=== PATIENT | female | born 1970 | race Caucasian/White ===

== ENCOUNTER 2019-04-06 13:17 | Outpatient (CLI) | payer BC, SELFPAY ==
--- NOTE | ~2019-04-06 | MM_ITS ---
EXAMINATION: MM diagnostic janae BI w elia HISTORY: Diffuse, intermittent bilateral mastodynia TECHNIQUE: Craniocaudal, mediolateral, and mediolateral oblique 3-D tomosynthesis images of the breantony ts were performed and synthetic 2-D images were generated. CAD analysis was submitted and interpreted . COMPARISON: 05/20/2018,05/26/2017, 04/24/2016, 04/18/2015 BREAST PARENCHYMAL COMPOSITION: The breasts are heterogeneously dense, which may obscure small masses . FINDINGS: There is no evidence of suspicious mass, calcification, or architectural distortion in eit her breast to suggest malignancy. There has been no suspicious interval change. No mammographic cor relate is identified for the patient's breast pain. IMPRESSION: 1. No specific mammographic correlate is identified for the patient's bilateral breast pain Further e valuation at this time should be based on clinical assessment. Continued follow-up physical examinati on is recommended. 2. Recommend routine screening mammography in one year. BI-RADS Category 1: Negative Reviewed, dictated and finalized at location A. SSEMBLY ASSEMBLER IMPRESSION: 1. No specific mammographic correlate is identified for the patient's bilateral breast pain Further evaluation at this time should be based on clinical assess ment. Continued follow-up physical examination is recommended. 2. Recommend routine screening mammography in one year. BI-RADS Category 1: Negative
== END 2019-04-06 13:18 | disposition home or self-care (01) ==
PROVIDERS: PCP Internal Medicine
DX: N64.4 Mastodynia (principal)
CPT/HCPCS: 77062; 77066; G0279

== ENCOUNTER 2022-04-13 09:02 | Outpatient (CLI) | payer BC, SELFPAY ==
--- NOTE | ~2022-04-13 | MM_ITS ---
EXAMINATION: MM screening janae BI w elia HISTORY: Screening mammogram TECHNIQUE: Craniocaudal and mediolateral oblique 3-D tomosynthesis images were obtained and synthetic 2-D images were generated. CAD analysis was submitted and interpreted. COMPARISON: April 06, 2019 diagnostic bilateral mammogram 05/20/2018 bilateral diagnostic mammography and complete bilateral breast ultrasound examination 09/15/2017 limited left breast ultrasound 09/06/2017 bilateral breast MRI examination BREAST PARENCHYMAL COMPOSITION: The breasts are heterogeneously dense, which may obscure small masses . FINDINGS: There is no evidence of suspicious mass, calcification, or architectural distortion to sugg est malignancy in either breast. There has been no suspicious interval change. IMPRESSION: 1. No mammographic evidence of malignancy. 2. Recommend routine screening mammography in one year. BI-RADS Category 1: Negative Reviewed, dictated and finalized at location A. EGE SPECIALIST
== END 2022-04-13 09:03 | disposition home or self-care (01) ==
PROVIDERS: PCP Nurse Practitioner; Visit Provider Nurse Practitioner
DX: Z12.31 Encounter for screening mammogram for malignant neoplasm of breast (principal)
CPT/HCPCS: 77063; 77067

== ENCOUNTER 2024-08-20 06:42 | Inpatient (IN) | payer BC, SELFPAY ==
[2024-08-20] VITALS (9 sets, daily range): BP systolic 111–150; BP diastolic 60–83; PULSE 83–113; RESP 14–16; TEMP 36.6–37.2; O2SAT 93–99; BMI 21.4
--- OUTSIDE RECORDS SUMMARY | 2024-08-20 06:45 | XMS_ITS | Encounter Summary ---
Author Organization [facility] Address [address] [place] [id number] Care Team Providers Care Personal Care Attendant Name Role Phone Justa Rene NP Primary Care Provider [phone] Encounter Details Date Type Department Care Team (Late st Contact Info) Description 01/06/2022 Bahoui Message Enc [facility] Family Medicine - [place] [address] [facility] [address] [place] [address] [phone] Justa Rene, KEMAL [address] [place] [address] Short Term Medicine Social History Tobacco Use Types Packs/Day Years Used Date Smoking Tobacco: Former Cigarettes 0.3 3 0 02/15/1994 - 02/15/1997 Alcohol Use Standard Drinks/Week Comments Not Currently 0 (1 standard drink = 0.6 oz pur e alcohol) A drink every other month PHQ-2 Answer Date Recorded PHQ-2 Score - If the patient scores above 3, please move on to questions 3-9 4 01/05/2022 Comments Unknown Sex and Gender Information Value Date Recorded Sex Assigned at Female 04/26/2024 8:09 AM CDT Legal Sex Female 5:13 PM CDT Gender Identity Female 05/30/2024 2:26 PM CDT Sexual Orientation Straight 05/30/2024 2: 26 PM CDT COVID-19 Exposure Response Date Recorded In the last 10 days, have yo u been in contact with someone who was confirmed or suspected to have Coronavirus/COVID-19? 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 [address] [place], [place] [id number] Lucy Paez FNP [address] [facility] [address] [place], [place] [id number] documented as of this encounter Visit Diagnoses Not on filedocumented in this encounter Additional Health Concerns Assessment Noted Time PHQ-9 Depression Total Score: 13 022 10:18 AM PIPE AND TEST SUPERVISOR documented as of this encounter Care Teams Personal Care Attendant Relationship Specialty Start Date End Date Justa Rene NP [address] [place] [address] PCP - General NURSE PRACTITIONER 12/25/21 documented as of this encounter
--- OUTSIDE RECORDS SUMMARY | 2024-08-20 06:45 | XMS_ITS | Clinical Summary ---
Author Organization [facility] Address [address] [place] [id number] Phone Care Team Providers Care Envelope Press Operator Name Role Phone Gilberto Milligan MD Primary Care Provider [phone] Allergies Active Allergy Reactions Criticality Noted Date Comments Penicillins Unknown 08/17/2018 Medications SYNTHROID 88 mcg tablet TK 1 T PO QD 0 9 Active trazodone HCl (TRAZODONE ORAL) Take by mouth. Active L. acidophilus/L. rhamnosus (PROBIOTIC ORAL) Take by mouth. Active linaCLOtide (LINZESS) 145 mcg capsuleIndication s:Constipation, unspecified constipation type Take 1 Capsule (145 mcg) by mouth daily before breakfast. 30 Capsule 2 9 Active Active Problems No known active problems Family History Medical History Relation Name Comments Breast Cancer Paternal Grandmother Relation Name Status Comments Paternal Grandmother Social History Tobacco Use Types Packs/Day Years Used Date Smoking Tobacco: Never Smokeless Tobacco: Never Alcohol Use Standard Drinks/Week Comments Yes 0 (1 standard drink = 0.6 oz pur e alcohol) Comments No Sex and Gender Information Value Date Recorded Sex Assigned at Not on file Legal Sex Female 1:51 PM CDT Gender Identity Not on file Sexual Orientation Not on file Last Filed Vital Signs Vital Sign Reading Time Taken Comments Blood Pressure 138/70 08/17/2018 2:21 PM CDT Pulse 82 08/17/2018 2:21 PM CDT Temperature - - Respiratory Rate - - Oxygen Saturation - - Inhaled Oxygen Concentration - - Weight 55.3 kg (122 lb) 08/17/2018 2:21 PM CDT Height 162.6 cm (5' 4) 08/17/2018 2:21 PM CDT Body Mass Index 20.94 08/17/2018 2:21 PM CDT Plan of Treatment Health Maintenance Due Date Last Done Comments DTAP/TDAP/TD VACCINES (1 - Tdap) 1989 HEPATITIS B VACCINES (1 of 3 - 19+ 3-dose series) 06/1989 HPV/Cotest (21-29) 12/21/1991 CERVICAL CANCER SCREENING 2000 HPV/Cotest (30-65) 2000 PAP SMEAR 2000 BREAST CANCER SCREENING 2010 COLORECTAL SCREENING 12/21/2015 Colorectal Cancer Screening 12/21/2015 FIT-DNA Q 3 years 12/21/2015 FIT/FOBT Q 1 year 12/21/2015 Flex Sig/CT Colonography Q 5 years 12/21/2015 ZOSTER VACCINE (1 of 2) 2020 INFLUENZA VACCINE (#1) 2024 Insurance [employer] BLUE ACCESS/TRUE BLUE PPO Care Teams Envelope Press Operator Relationship Specialty Start Date End Date Gilberto Milligan MD [address] [place] [address] [place] [id number] PCP - General Internal Medicine 07/25/18
--- OUTSIDE RECORDS SUMMARY | 2024-08-20 06:45 | XMS_ITS | Clinical Summary ---
Author Organization [facility] 2 Address [address] [place] [address] Care Team Providers Care Egg Tester Name Role Phone Justa Rene MD Primary Care Provider [phone] Allergies Active Allergy Reactions Criticality Noted Date Comments Chlorhexidine Gluconate Hives Medium 07/27/2024 Medications cyanocobalamin (Vitamin B-12) 1,000 mcg/mL injection INJ 1 ML MONTHLY UTD 1 11/21/19 18 Active SYNTHROID 88 mcg tablet TK 1 T PO QD 1 10/21/19 18 Active valACYclovir (VALTREX) 1 gram tablet TK 1 T PO BID PRN FOR COLD SORES 0 09/25/19 18 Active triamcinolone (KENALOG) 0.1 % cream Apply topically 2 (two) times a day 28.4 g 3 12/06/[address] (PROTONIX) 40 mg EC tablet Take 1 tablet (40 mg total) by mouth daily Active cetirizine (ZyrTEC) 5 mg chewable tablet Take 1 tablet (5 mg total) by mouth daily Active spironolactone (ALDACTONE) 100 mg tablet Take 1 tablet (100 mg total) by mouth daily Active diclofenac sodium (VOLTAREN) 1 % gel APPLY 4 GRAMS TO LEFT KNEE QID 1 10/13/19 18 025 Discontinued(Th erapy completed) AFLURIA QUAD 4180-1406, PF, 60 mcg/0.5 mL syringe ADM 0.5ML IM UTD 0 11/21/19 18 025 Discontinued( erapy completed) meloxicam (MOBIC) 15 mg tablet TK 1 T PO QD WF 0 10/25/19 18 025 Discontinued( erapy completed) spironolactone (ALDACTONE) 25 mg tablet TK 3 TS PO QAM AND 2 TS PO QHS 0 09/21/19 18 025 Discontinued sulfamethoxazo le-trimethopri m (BACTRIM,SEPTR A) 800-160 mg per tablet TK 1 T PO BID IF NEEDED FOR UTI 0 09/25/19 18 025 Discontinued( erapy completed) BD TUBERCULIN SYRINGE 1 mL 25 gauge x 5/8 syringe USE FOR B12 ONCE Q MONTH 0 09/22/19 18 025 Discontinued( erapy completed) traZODone (DESYREL) 50 mg tablet TK 1 TO 2 TS PO HS 1 09/25/19 18 025 Discontinued( erapy completed) Contrave 8-90 mg tablet extended release TK 2 TS PO BID 11/06/19 20 025 Discontinued( erapy completed) linaCLOtide (LINZESS) 145 mcg capsule Take 145 mcg by mouth daily before breakfast 08/18/19 19 025 Discontinued( erapy completed) fluconazole (DIFLUCAN) 150 mg tablet TK 1 T PO QOD 10/26/19 20 025 Discontinued( erapy completed) ciprofloxacin (CIPRO) 500 mg tablet TK 1 T PO BID FOR 10 DAYS 10/26/19 20 025 Discontinued( erapy completed) cefdinir (OMNICEF) 300 mg capsule TK 1 C PO TWICE DAILY. STOP BACTRIM / CIPRO 10/31/19 20 025 Discontinued( erapy completed) UNABLE TO FIND Take by mouth 025 Discontinued( erapy completed) UNABLE TO FIND Take by mouth 025 Discontinued( erapy completed) phentermine (ADIPEX-P) 37.5 mg tablet Take 37.5 mg by mouth daily 09/12/19 20 025 Discontinued( erapy completed) BD Safety-Norma Tuberculin 1 mL 25 gauge x 5/8 syringe U ONCE Q MONTH 10/05/19 20 025 Discontinued(Th erapy completed) levoFLOXacin (LEVAQUIN) 500 mg tabletIndicati ons:Skin/Soft Tissue Infection Take 1 tablet (500 mg total) by mouth daily for 7 days 7 tablet 07/31/19 25 025 doxycycline (VIBRAMYCIN) 100 mg capsuleIndicat ions:Skin/Soft Tissue Infection Take 1 tablet/capsul e (100 mg total) by mouth 2 (two) times a day for 7 days 14 tablet/caps ule 07/31/19 25 025 Active Problems Problem Noted Date Diagnosed Date Cellulitis of axilla, unspecified laterality 01/2025 Encounters Date Type Department Care Team Description 07/27/2024 11:33 AM CDT - 07/30/2024 12:10 PM CDT Hospital Encounter [place] [address] Med [address] [place] [address] Salvador Ramos DO Tele[place], MD Coleman Laureano Ekanga Sunday, MD Cellulitis of axilla, unspecified laterality [L03.119] (Primary Dx); Cellulitis of axilla, unspecified laterality Discharge Disposition: Discharge to home or self care from Last 3 Months Surgical History Surgery Date Site/Laterality Comments APPENDECTOMY SECTION Medical History Medical History Date Comments Hypothyroid Chronic constipation Social History Tobacco Use Types Packs/Day Years Used Date Smoking Tobacco: Never [employer] Answer Date Recorded In the past 12 months has e [employer], gas, oil, or water [employer] threatened to shut off services in your home? No 07/28/2024 Social Connection and Isolat ion Panel [NHANES] Answer Date Recorded In a typical week, how many times do you talk on the phone with family, friends, or neighbors? More than three times a week 07/28/2024 How often do you get togethe r with friends or relatives? More than three times a week 07/28/2024 How often do you attend chur or amish services? Never 07/28/2024 Do you belong to any clubs o r organizations such as muslim groups, unions, fraternal or athletic groups, or school groups? No 07/28/2024 How often do you attend meet ings of the clubs or organizations you belong to? Never 07/28/2024 Are you , , di vorced, , never , or living with a partner? 07/28/2024 Overall Financial Resource Strain (CARDIA) Answe r Date Recorded How hard is it for you to pa y for the very basics like food, housing, medical care, and heating? Not hard at all 07/28/2024 Hunger Vital Sign Answer Date Recorded Within the past 12 months, y ou worried that your food would run out before you got the money to buy more. Never true 07/29/19 25 Within the past 12 months, t he food you bought just didn't last and you didn't have money to get more. Never true 07/28/2024 PRAPARE - Transportation Answer Date Re corded In the past 12 months, has l ack of transportation kept you from medical appointments or from getting medications? No 07/16 In the past 12 months, has l ack of transportation kept you from meetings, work, or from getting things needed for daily living? No 07/28/2024 Housing Stability Vital Sign Answer Bossman e Recorded In the last 12 months, was t here a time when you were not able to pay the mortgage or rent on time? No 07/28/2024 In the past 12 months, how m any times have you moved where you were living? 0 07/28/2024 At any time in the past 12 m [facility], were you homeless or living in a half-way (including now)? No 07/28/2024 Personal Safety Answer Date Recorded Have you ever been in or are you currently in a harmful physical or emotional relationship or is someone making you feel afraid or unsafe? 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 Gender Identity Not on file Sexual Orientation Not on file Obstetrics History Last Filed Vital Signs Vital Sign Reading Time Taken Comments Blood Pressure 151/78 07/30/2024 7:21 AM CDT Pulse 87 07/30/2024 7:21 AM CDT Temperature 37 C (98.6 F) 07/30/2024 7:21 AM CDT Respiratory Rate 18 07/30/2024 7:21 AM CDT Oxygen Saturation 98% 07/30/2024 7:21 AM CDT Inhaled Oxygen Concentration - - Weight 53.7 kg (118 lb 4.8 oz) 07/27/2024 12:30 PM CDT Height 160 cm (5' 3) 07/27/2024 12:30 PM CDT Body Mass Index 20.96 07/27/2024 12:30 PM CDT Plan of Treatment Health Maintenance Due Date Last Done Comments Cervical Cancer Screening 1970 Colon Cancer Screening-Colonoscopy 1970 Depression Screening 1970 Hepatitis C Screening 1970 DTaP/Tdap/Td Vaccine (1 - Tdap) 1981 Regular Well Visit/Exam 18-64 1988 Influenza Vaccine (Season Ended) 2024 11/19/2017, 11/28/2015 Breast Cancer Screening-Mammogram 01/25/2025 01/26/2024, 01/26/2024, 04/13/2022 Zoster Vaccine Completed 05/08/2022, 02/20/2022 Hepatitis B Screening Completed 05/28/2023 Pneumococcal vaccine <65 Aged Out No longer eligible based on patient's age to complete this topic Procedures Procedure Name Priority Date/Time Associated Diagnosis Comments EGFR Routine 07/30/2024 3:22 AM CDT DIFFERENTIAL AUTO Routine 07/30/2024 3:2 2 AM CDT MAGNESIUM Routine 07/30/2024 3:22 AM CDT COMPREHENSIVE METABOLIC PANEL Routine 07/30/2024 3:22 AM CDT CBC WITH AUTO DIFFERENTIAL Routine 07/30/2024 3:22 AM CDT VANCOMYCIN LEVEL TROUGH Timed 07/29/2024 11:01 PM CDT EGFR Routine 07/29/2024 7:36 AM CDT BASIC METABOLIC PANEL Routine 07/29/2024 7:36 AM CDT VANCOMYCIN LEVEL TROUGH Timed 07/29/2024 12:10 AM CDT EGFR Routine 07/28/2024 5:38 AM CDT DIFFERENTIAL AUTO Routine 07/28/2024 5:3 8 AM CDT PHOSPHORUS Routine 07/28/2024 5:38 AM CDT MAGNESIUM Routine 07/28/2024 5:38 AM CDT BASIC METABOLIC PANEL Routine 07/28/2024 5:38 AM CDT CBC WITH AUTO DIFFERENTIAL Routine 07/28/2024 5:[address] CHEST WO CONTRAST IP Routine 07/27/2024 8:35 PM CDT EGFR STAT 07/27/2024 1:40 PM CDT DIFFERENTIAL AUTO STAT 07/27/2024 1:4 0 PM CDT LACTATE Routine 07/27/2024 1:40 PM CDT ERYTHROCYTE SEDIMENTATION RATE Routine 07/27/2024 1:40 PM CDT CRP (ACUTE PHASE) Routine 07/27/2024 1:4 0 PM CDT CBC WITH AUTO DIFFERENTIAL STAT 07/27/2024 1:40 PM CDT COMPREHENSIVE METABOLIC PANEL STAT 07/27/2024 1:40 PM CDT TSH STAT 07/27/2024 1:40 PM CDT MAGNESIUM STAT 07/27/2024 1:40 PM CDT PHOSPHORUS STAT 07/27/2024 1:40 PM CDT from Last 3 Months Results * eGFR (07/30/2024 3:22 AM CDT) eGFR >90 >=60 mL/min/1. 73 m2 Comment: Interpretive Data Reference Interval Normal >/= 90 mL/min/1.73m2 Mildly decreased* 60 - 89 mL/min/1.73m2 Mildly to moderately decreased 45 - 59 mL/min/1.73m2 Moderately to severely decreased 30 - 44 mL/min/1.73m2 Severely decreased 15 - 29 mL/min/1.73m2 Kidney Failure < 15 mL/min/1.73m2 *Relative to young adult level Estimated glomerular filtration rate is determined by the 2020 CKD-EPI equation recommended by the National Kidney Foundation (A Unifying Approach to GFR Estimation: Recommendations of the NKF-ASK Task Force on Reassessing the Inclusion of Race in Diagnosing Kidney Disease, JASN 2020). The CKD-EPI equation should not be used for patients with unstable renal function and has not been validated in children and those over 70. Current interpretive data was last reviewed 2020. Testing performed by: [address] [address] Blood 07/30/2024 3:22 AM CDT 07/30/2024 4:05 AM CDT us Ilia Cee MD LAB BLOOD ORDERABLES Fi nal Result [facility] [address] [facility] Department [place] [address] * Differential, auto (07/30/2024 3:22 AM CDT) Neutrophil abs 2.07 1.50 - 6.50 K/cumm Comment:Testing performed by : [address] [address] Imm gran abs 0.01 0.00 - 0.10 K/cumm MONSE Comment:Testing performed by : [address] [address] Lymphocyte abs 1.84 0.80 - 3.30 K/cumm MONSE Comment:Testing performed by : [address] [address] Monocyte abs 0.54 0.20 - 0.80 K/cumm MONSE Comment:Testing performed by : [address] [address] Eosinophil abs 0.20 0.00 - 0.50 K/cumm BANNEREDUARDO Comment:Testing performed by : [address], [place]., [address] Basophil abs 0.05 0.00 - 0.10 K/cumm MONSE Comment:Testing performed by : [address] [address] Neutrophil pct 43.9 % [facility] Comment: Interpretive Data Percent cell count reference ranges are not reported, since discordance with absolute values may lead to misinterpretation of CBC data. Current Interpretive Data was last revised on 2017. Testing performed by: [address] [address] Imm gran pct 0.2 % [facility] Comment: Interpretive Data Percent cell count reference ranges are not reported, since discordance with absolute values may lead to misinterpretation of CBC data. Current Interpretive Data was last revised on 2017. Testing performed by: [address] [address] Lymphocyte pct 39.1 % [facility] Comment: Interpretive Data Percent cell count reference ranges are not reported, since discordance with absolute values may lead to misinterpretation of CBC data. Current Interpretive Data was last revised on 2017. Testing performed by: [address] [address] Monocyte pct 11.5 % [facility] Comment: Interpretive Data Percent cell count reference ranges are not reported, since discordance with absolute values may lead to misinterpretation of CBC data. Current Interpretive Data was last revised on 2017. Testing performed by: [address] [address] Eosinophil pct 4.2 % [facility] Comment: Interpretive Data Percent cell count reference ranges are not reported, since discordance with absolute values may lead to misinterpretation of CBC data. Current Interpretive Data was last revised on 2017. Testing performed by: [address] [address] Basophil pct 1.1 % [facility] CORMIER Comment: Interpretive Data Percent cell count reference ranges are not reported, since discordance with absolute values may lead to misinterpretation of CBC data. Current Interpretive Data was last revised on 2017. Testing performed by: [address] [address] Blood 07/30/2024 3:22 AM CDT 07/30/2024 4:05 AM CDT us Ilia Cee MD LAB BLOOD ORDERABLES Fi nal Result [facility]3 [facility] Department [place] [address] * CBC with auto differential (07/30/2024 3:22 AM CDT) WBC 4.71 3.80 - 9.90 K/cumm Comment:Testing performed by : [address] [address] Hgb 12.3 11.9 - 15.5 g/dL [facility]ER Comment:Testing performed by : [address] [address] Hct 37.0 35.6 - 45.5 % [facility]ER Comment:Testing performed by : [address] [address] Plt 228 150 - 400 K/cumm MONSE COR[facility]ER Comment:Testing performed by : [address] [address] MPV 10.0 9.1 - 12.3 fL [facility] Comment:Testing performed by : [address] [address] RBC 4.04 3.90 - 5.20 M/cumm [facility]ER Comment:Testing performed by : [address] [address] MCV 91.6 81.3 - 96.4 fL [facility]ER Comment:Testing performed by : [address], [address] MCH 30.4 27.1 - 33.3 pg [facility]ER Comment:Testing performed by : [address] [address] MCHC 33.2 32.3 - 35.7 g/dL [facility]ER Comment:Testing performed by : [address], [address] RDW CV 13.2 11.1 - 14.9 % [facility]ER Comment:Testing performed by : [address], [address] RDW SD 44.5 35.7 - 48.1 fL [facility] COR[facility]ER Comment:Testing performed by : [address], [address] NRBC abs 0.00 0.00 - 0.01 K/cumm MONSE Comment:Testing performed by : [address], [address] Blood 07/30/2024 3:22 AM CDT 07/30/2024 4:05 AM CDT Ilia Cee MD LAB BLOOD ORDERABLES Fi nal Result Performing Organization Address [facility] Co de Phone Number [address] [place] [address] * Magnesium (07/30/2024 3:22 AM CDT) Magnesium 1.8 1.4 - 2.5 mg/dL Comment:Testing performed by : [address], [address] Blood 07/30/2024 3:22 AM CDT 07/30/2024 4:05 AM CDT Ilia Cee MD LAB BLOOD ORDERABLES Fi nal Result Performing Organization Address [facility] Co de Phone Number [address] [place] [address] * (ABNORMAL) Comprehensive metabolic panel (07/30/2024 3:22 AM CDT) Sodium 139 135 - 145 mmol/L Comment:Testing performed by : [address] [address] Potassium, pl 3.5 3.3 - 4.9 mmol/L MONSE Comment:Testing performed by : [address] [address] Chloride 104 97 - 110 mmol/L MONSE Comment:Testing performed by : [address], [place]., [address] CO2 25 22 - 32 mmol/L MONSE Comment:Testing performed by : [address] [address] Anion gap 10 2 - 15 mmol/L MONSE Comment:Testing performed by : [address] [address] BUN 7 6 - 25 mg/dL MONSE Comment:Testing performed by : [address], [place]., [address] Creatinine 0.68 0.60 - 1.10 mg/dL [facility] Comment:Testing performed by : [address] [address] Glucose 80 70 - 199 mg/dL MONSE Comment: Interpretive Data Fasting glucose >/= 126 mg/dl is diagnostic for diabetes. Fasting is defined as no caloric intake for at least 8 hours. Fasting glucose between 100 mg/dl to 125 mg/dl is diagnostic of prediabetes. In a patient with classic symptoms of hyperglycemia or hyperglycemic crisis, a random glucose >/= 200 mg/dl is diagnostic for diabetes. In the absence of unequivocal hyperglycemia, results should be confirmed by repeat testing. The classification and Diagnosis of Diabetes Diabetes Care 202; 46: S19-S40. Current interpretive data was last revised 2022. Testing performed by: [address] [address] Calcium 8.8 8.5 - 10.3 mg/dL MONSE Comment:Testing performed by : [address] [address] Bilirubin, total 0.4 0.1 - 1.2 mg/dL MONSE Comment:Testing performed by : [address] [address] Protein, pl 6.2(L) 6.5 - 8.5 g/dL MONSE Comment:Testing performed by : [address] [address] Albumin 3.7 3.5 - 5.0 g/dL MONSE Comment:Testing performed by : [address] [address] Alk phos 55 40 - 130 Units/L MONSE Comment:Testing performed by : [address] [address] ALT 30 7 - 45 Units/L MONSE Comment:Testing performed by : [address], [address] AST 29 10 - 45 Units/L MONSE Comment:Testing performed by : [address], [address] Blood 07/30/2024 3:22 AM CDT 07/30/2024 4:05 AM CDT Ilia Cee MD LAB BLOOD ORDERABLES Fi nal Result Performing Organization Address [facility] Co de Phone Number [address] of [employer] [place], [place] [id number] * Vancomycin level trough (07/29/2024 11:01 PM CDT) Pathologist [facility] Vancomycin trough 14.8 10.0 - 20.0 mcg/mL Comment:Testing performed by : [address] [address] Blood 07/29/2024 11:0 1 PM CDT 07/29/2024 11:08 PM CDT Ilia Cee MD LAB BLOOD ORDERABLES Fi nal Result Performing Organization Address City/[facility]/ZIP Co de Phone Number [place] [id number] Department [place] [address] * eGFR (07/29/2024 7:36 AM CDT) eGFR >90 >=60 mL/min/1. 73 m2 Comment: Interpretive Data Reference Interval Normal >/= 90 mL/min/1.73m2 Mildly decreased* 60 - 89 mL/min/1.73m2 Mildly to moderately decreased 45 - 59 mL/min/1.73m2 Moderately to severely decreased 30 - 44 mL/min/1.73m2 Severely decreased 15 - 29 mL/min/1.73m2 Kidney Failure < 15 mL/min/1.73m2 *Relative to young adult level Estimated glomerular filtration rate is determined by the 2020 CKD-EPI equation recommended by the National Kidney Foundation (A Unifying Approach to GFR Estimation: Recommendations of the NKF-ASK Task Force on Reassessing the Inclusion of Race in Diagnosing Kidney Disease, JASN 2020). The CKD-EPI equation should not be used for patients with unstable renal function and has not been validated in children and those over 70. Current interpretive data was last reviewed 2020. Testing performed by: [address] [address] Blood 07/29/2024 7:36 AM CDT 07/29/2024 8:06 AM CDT us Ilia Cee MD LAB BLOOD ORDERABLES Fi nal Result [facility] Department [place] [address] * Basic metabolic panel (07/29/2024 7:36 AM CDT) [facility] Sodium 137 135 - 145 mmol/L Comment:Testing performed by : [address] [address] Potassium, pl 3.7 3.3 - 4.9 mmol/L MONSE CORMIER Comment:Testing performed by : [address] [address] Chloride 104 97 - 110 mmol/L MONSE COR[facility]ER Comment:Testing performed by : [address] [address] CO2 24 22 - 32 mmol/L MONSE Comment:Testing performed by : [address] [address] Anion gap 9 2 - 15 mmol/L MONSE Comment:Testing performed by : [address] [address] BUN 6 6 - 25 mg/dL MONSE Comment:Testing performed by : [address] [address] Creatinine 0.63 0.60 - 1.10 mg/dL MONSE Comment:Testing performed by : [address] [address] Glucose 78 70 - 199 mg/dL MONSE Comment: Interpretive Data Fasting glucose >/= 126 mg/dl is diagnostic for diabetes. Fasting is defined as no caloric intake for at least 8 hours. Fasting glucose between 100 mg/dl to 125 mg/dl is diagnostic of prediabetes. In a patient with classic symptoms of hyperglycemia or hyperglycemic crisis, a random glucose >/= 200 mg/dl is diagnostic for diabetes. In the absence of unequivocal hyperglycemia, results should be confirmed by repeat testing. The classification and Diagnosis of Diabetes Diabetes Care 202; 46: S19-S40. Current interpretive data was last revised 2022. Testing performed by: [address] [address] Calcium 8.8 8.5 - 10.3 mg/dL MONSE Comment:Testing performed by : [address] [address] Blood 07/29/2024 7:36 AM CDT 07/29/2024 8:06 AM CDT us Ilia Cee MD LAB BLOOD ORDERABLES Fi nal Result [facility] [address] [facility] Department of Laboratories [place], [place] [id number] * (ABNORMAL) Vancomycin level trough (07/29/2024 12:10 AM CDT) Vancomycin trough 6.1(L) 10.0 - 20.0 mcg/mL Comment:Testing performed by : [address] [address] Blood 07/29/2024 12:1 0 AM CDT 07/29/2024 12:15 AM CDT Sabrina North [employer] OPER[employer] SPECIALIST LAB BLOOD ORDERABLES Final R esult Performing Organization Address [facility] Co de Phone Number MONSE [address] [employer] [place] [employer] [place] [address] * eGFR (07/28/2024 5:38 AM CDT) Pathologist [facility] eGFR >90 >=60 mL/min/1. 73 m2 Comment: Interpretive Data Reference Interval Normal >/= 90 mL/min/1.73m2 Mildly decreased* 60 - 89 mL/min/1.73m2 Mildly to moderately decreased 45 - 59 mL/min/1.73m2 Moderately to severely decreased 30 - 44 mL/min/1.73m2 Severely decreased 15 - 29 mL/min/1.73m2 Kidney Failure < 15 mL/min/1.73m2 *Relative to young adult level Estimated glomerular filtration rate is determined by the 2020 CKD-EPI equation recommended by the National Kidney Foundation (A Unifying Approach to GFR Estimation: Recommendations of the NKF-ASK Task Force on Reassessing the Inclusion of Race in Diagnosing Kidney Disease, JASN 2020). The CKD-EPI equation should not be used for patients with unstable renal function and has not been validated in children and those over 70. Current interpretive data was last reviewed 2020. Testing performed by: [facility], [address] [place] [address]., [address] Blood 07/28/2024 5:38 AM CDT 07/28/2024 6:06 AM CDT Sabrina Nroth [employer] OPER[employer] SPECIALIST LAB BLOOD ORDERABLES Final R esult Performing Organization Address City/[facility]/ZIP Co de Phone Number MONSE [address] Department [place] [address] * Differential, auto (07/28/2024 5:38 AM CDT) Neutrophil abs 1.53 1.50 - 6.50 K/cumm Comment:Testing performed by : [address] [address] Imm gran abs 0.01 0.00 - 0.10 K/cumm MONSE Comment:Testing performed by : [address] [address] Lymphocyte abs 1.95 0.80 - 3.30 K/cumm MONSE Comment:Testing performed by : [address] [address] Monocyte abs 0.48 0.20 - 0.80 K/cumm MONSE Comment:Testing performed by : [address] [address] Eosinophil abs 0.15 0.00 - 0.50 K/cumm MONSE Comment:Testing performed by : [address] [address] Basophil abs 0.06 0.00 - 0.10 K/cumm MONSE Comment:Testing performed by : [address] [address] Neutrophil pct 36.6 % MONSE Comment: Interpretive Data Percent cell count reference ranges are not reported, since discordance with absolute values may lead to misinterpretation of CBC data. Current Interpretive Data was last revised on 2017. Testing performed by: [address] [address] Imm gran pct 0.2 % MONSE Comment: Interpretive Data Percent cell count reference ranges are not reported, since discordance with absolute values may lead to misinterpretation of CBC data. Current Interpretive Data was last revised on 2017. Testing performed by: [address] [address] Lymphocyte pct 46.7 % MONSE Comment: Interpretive Data Percent cell count reference ranges are not reported, since discordance with absolute values may lead to misinterpretation of CBC data. Current Interpretive Data was last revised on 2017. Testing performed by: [address] [address] Monocyte pct 11.5 % MONSE Comment: Interpretive Data Percent cell count reference ranges are not reported, since discordance with absolute values may lead to misinterpretation of CBC data. Current Interpretive Data was last revised on 2017. Testing performed by: [address] [address] Eosinophil pct 3.6 % MONSE Comment: Interpretive Data Percent cell count reference ranges are not reported, since discordance with absolute values may lead to misinterpretation of CBC data. Current Interpretive Data was last revised on 2017. Testing performed by: [address] [address] Basophil pct 1.4 % MONSE Comment: Interpretive Data Percent cell count reference ranges are not reported, since discordance with absolute values may lead to misinterpretation of CBC data. Current Interpretive Data was last revised on 2017. Testing performed by: [address] [address] Blood 07/28/2024 5:38 AM CDT 07/28/2024 6:07 AM CDT us Sabrina North [employer] SPECIALIST LAB BLOOD ORDERABLES Final R esult [facility] 0[address] [facility] Department [place] [address] * CBC with auto differential (07/28/2024 5:38 AM CDT) WBC 4.18 3.80 - 9.90 K/cumm Comment:Testing performed by : [address] [address] Hgb 12.0 11.9 - 15.5 g/dL MONSE CORMIER Comment:Testing performed by : [address] [address] Hct 37.1 35.6 - 45.5 % MONSE Comment:Testing performed by : [address] [address] Plt 207 150 - 400 K/cumm MONSE CORMIER Comment:Testing performed by : [address] [address] MPV 10.0 9.1 - 12.3 fL MONSE CORMIER Comment:Testing performed by : [address] [address] RBC 3.99 3.90 - 5.20 M/cumm MONSE CORMIER Comment:Testing performed by : [address] [address] MCV 93.0 81.3 - 96.4 fL MONSE CORMIER Comment:Testing performed by : [address], [address] MCH 30.1 27.1 - 33.3 pg MONSE CORMIER Comment:Testing performed by : [address], [address] MCHC 32.3 32.3 - 35.7 g/dL MONSE Comment:Testing performed by : [address], [address] RDW CV 13.4 11.1 - 14.9 % MONSE Comment:Testing performed by : [address] [address] RDW SD 45.7 35.7 - 48.1 fL MONSE CORMIER Comment:Testing performed by : [address] [address] NRBC abs 0.00 0.00 - 0.01 K/cumm MONSE CORMIER Comment:Testing performed by : [address] [address] Blood 07/28/2024 5:38 AM CDT 07/28/2024 6:07 AM CDT us Sabrina North NP LAB BLOOD ORDERABLES Final R esult MONSE 9530 [facility] Department [place] [address] * Phosphorus (07/28/2024 5:38 AM CDT) Pathologist [facility] Phosphorus, pl 2.8 2.3 - 4.5 mg/dL Comment:Testing performed by : [address] [address] Blood 07/28/2024 5:38 AM CDT 07/28/2024 6:06 AM CDT Sabrina North [employer] SPECIALIST LAB BLOOD ORDERABLES Final R esult Performing Organization Address [facility] Co de Phone Number [address] [place] [place] [address] * Magnesium (07/28/2024 5:38 AM CDT) [facility] Magnesium 1.8 1.4 - 2.5 mg/dL Comment:Testing performed by : [address] [address] Blood 07/28/2024 5:38 AM CDT 07/28/2024 6:06 AM CDT Sabrina North [employer] SPECIALIST LAB BLOOD ORDERABLES Final R esult Performing Organization Address [facility] Co de Phone Number [address] [place] [place] [address] * (ABNORMAL) Basic metabolic panel (07/28/2024 5:38 AM CDT) [facility] Sodium 141 135 - 145 mmol/L Comment:Testing performed by : [address] [address] Potassium, pl 3.7 3.3 - 4.9 mmol/L MONSE Comment:Testing performed by : [address] [address] Chloride 108 97 - 110 mmol/L MONSE Comment:Testing performed by : [address] [address] CO2 24 22 - 32 mmol/L MONSE Comment:Testing performed by : [address] [address] Anion gap 9 2 - 15 mmol/L MONSE Comment:Testing performed by : [address] [address] BUN 8 6 - 25 mg/dL MONSE Comment:Testing performed by : [address] [address] Creatinine 0.59(L) 0.60 - 1.10 mg/dL MONSE Comment:Testing performed by : [address] [address] Glucose 79 70 - 199 mg/dL MONSE Comment: Interpretive Data Fasting glucose >/= 126 mg/dl is diagnostic for diabetes. Fasting is defined as no caloric intake for at least 8 hours. Fasting glucose between 100 mg/dl to 125 mg/dl is diagnostic of prediabetes. In a patient with classic symptoms of hyperglycemia or hyperglycemic crisis, a random glucose >/= 200 mg/dl is diagnostic for diabetes. In the absence of unequivocal hyperglycemia, results should be confirmed by repeat testing. The classification and Diagnosis of Diabetes Diabetes Care 2021; 46: S19-S40. Current interpretive data was last revised 2022. Testing performed by: [address] [address] Calcium 8.5 8.5 - 10.3 mg/dL MONSE Comment:Testing performed by : [address] [address] Blood 07/28/2024 5:38 AM CDT 07/28/2024 6:06 AM CDT us Sabrina North NP LAB BLOOD ORDERABLES Final R esult JACEYEDUARDO 0143 [facility] Department [place] [address] * CT Chest WO Contrast (07/27/2024 8:35 PM CDT) Anatomical Region Laterality Modality Body N/A Computed Tomogra phy 07/27/2024 11:1 4 PM CDT Narrative 07/27/2024 11:20 PM CDT EXAM DESCRIPTION: CT CHEST WO CONTRAST REASON FOR STUDY: rule out abscess rule out abscess. Cellulitis of axilla, unspecified laterality TECHNIQUE: CT scan of the chest performed without intravenous contrast using helical scanning technique. Reconstructed coronal and sagittal MPR images reviewed. All images stored on PACS. Automated mA/kV exposure control was utilized as a dose optimization technique for this examination, performed in strict accordance with principles of ALARA. COMPARISON: None. REFERENCE: Per ACR white paper recommendations, unless otherwise specified no follow-up imaging is recommended for incidental renal and adrenal lesions per consensus recommendations based on imaging criteria. Further lab evaluation could be pursued based on clinical findings. FINDINGS: The sensitivity for detection of solid visceral lesions is diminished without the use of intravenous contrast. NECK BASE: Unremarkable on this non-contrast CT. HARDWARE/LINES/TUBES: None. LYMPH NODES: No axillary, mediastinal or hilar lymphadenopathy is seen by CT size criteria on this non-contrast CT. MEDIASTINUM/LEANDER: No masses seen. The aorta and great vessels appear normal. There is moderate coronary artery calcification. Heart size is normal. There is no significant pericardial effusion. PLEURA: No effusion. No pneumothorax. LUNGS: There is minimal biapical pulmonary parenchymal scarring. There is minimal dependent atelectasis. The central airways are normal. CHEST WALL/BREAST: There is minimal skin thickening seen of the axilla bilaterally, slightly greater on the left than the right. No evidence of abscess.. MUSCULOSKELETAL: There is minimal degenerative change throughout the thoracic spine. UPPER ABDOMEN: No significant abnormality. OTHER: No other significant abnormality. IMPRESSION: 1. Minimal skin thickening of the axilla bilaterally, slightly greater on the left than the right, may represent cellulitis. No evidence of abscess. 2. Moderate coronary artery calcification. Recommend correlation with cardiac risk factors. 3. Minimal degenerative change of the thoracic spine. THIS IS AN ELECTRONICALLY VERIFIED FINAL REPORT 07/27/2024 11:20 PM - Electronically signed by Alma Sadler M.D. SN: Report ID: [id number] Reading Location: [place] [address] Procedure Note Alma Sadler MD - 07/27/2024 EXAM DESCRIPTION: CT CHEST WO CONTRAST REASON FOR STUDY: rule out abscess rule out abscess. Cellulitis of axilla, unspecified laterality TECHNIQUE: CT scan of the chest performed without intravenous contrastusing helical scanning technique. Reconstructed coronal and sagittal MPR images reviewed. All images stored on PACS. Automated mA/kV exposure controlwas utilized as a dose optimization technique for this examination, performedin strict accordance with principles of ALARA. COMPARISON: None. REFERENCE: Per ACR white paper recommendations, unless otherwise specifiedno follow-up imaging is recommended for incidental renal and adrenal lesionsper consensus recommendations based on imaging criteria. Further labevaluation could be pursued based on clinical findings. FINDINGS: The sensitivity for detection of solid visceral lesions is diminished without the use of intravenous contrast. NECK BASE: Unremarkable on this non-contrast CT. HARDWARE/LINES/TUBES: None. LYMPH NODES: No axillary, mediastinal or hilar lymphadenopathy is seen byCT size criteria on this non-contrast CT. MEDIASTINUM/LEANDER: No masses seen. The aorta and great vessels appear normal. There is moderate coronary artery calcification. Heart size is normal. There is no significant pericardial effusion. PLEURA: No effusion. No pneumothorax. LUNGS: There is minimal biapical pulmonary parenchymal scarring. Thereis minimal dependent atelectasis. The central airways are normal. CHEST WALL/BREAST: There is minimal skin thickening seen of the axilla bilaterally, slightly greater on the left than the right. No evidence of abscess.. MUSCULOSKELETAL: There is minimal degenerative change throughout thethoracic spine. UPPER ABDOMEN: No significant abnormality. OTHER: No other significant abnormality. IMPRESSION: 1. Minimal skin thickening of the axilla bilaterally, slightly greateron the left than the right, may represent cellulitis. No evidence ofabscess. 2. Moderate coronary artery calcification. Recommend correlation with cardiac risk factors. 3. Minimal degenerative change of the thoracic spine. THIS IS AN ELECTRONICALLY VERIFIED FINAL REPORT 07/27/2024 11:20 PM - Electronically signed by Alma Sadler M.D. SN: Report ID: [id number] Reading Location: [place] [address] us Takeysha L. Lowe [employer]PER[employer] SPECIALIST IMG CT PROCEDURES Final Resu lt * Lactate (07/27/2024 1:40 PM CDT) Lactate 0.9 0.7 - 2.0 mmol/L Comment:Testing performed by : [address] [address] Blood 07/27/2024 1:40 PM CDT 07/27/2024 1:46 PM CDT us Sabrina North [employer]PER[employer] SPECIALIST LAB BLOOD ORDERABLES Final R esult MONSE 6238 [facility] Department [place] [address] * eGFR (07/27/2024 1:40 PM CDT) eGFR >90 >=60 mL/min/1. 73 m2 Comment: Interpretive Data Reference Interval Normal >/= 90 mL/min/1.73m2 Mildly decreased* 60 - 89 mL/min/1.73m2 Mildly to moderately decreased 45 - 59 mL/min/1.73m2 Moderately to severely decreased 30 - 44 mL/min/1.73m2 Severely decreased 15 - 29 mL/min/1.73m2 Kidney Failure < 15 mL/min/1.73m2 *Relative to young adult level Estimated glomerular filtration rate is determined by the 2020 CKD-EPI equation recommended by the National Kid[employer] (A Unifying Approach to GFR Estimation: Recommendations of the NKF-ASK Task Force on Reassessing the Inclusion of Race in Diagnosing Kidney Disease, JASN 2020). The CKD-EPI equation should not be used for patients with unstable renal function and has not been validated in children and those over 70. Current interpretive data was last reviewed 2020. Testing performed by: [address] [address] Blood 07/27/2024 1:40 PM CDT 07/27/2024 1:45 PM CDT us Takeysha L. Lowe [employer] OPERATIONS SPECIALIST LAB BLOOD ORDERABLES Final R esult MONSE [address] [facility] Department [place] [address] * Differential, auto (07/27/2024 1:40 PM CDT) Neutrophil abs 4.11 1.50 - 6.50 K/cumm Comment:Testing performed by : [address] [address] Imm gran abs 0.03 0.00 - 0.10 K/cumm MONSE Comment:Testing performed by : [address] [address] Lymphocyte abs 1.28 0.80 - 3.30 K/cumm MONSE Comment:Testing performed by : [address] [address] Monocyte abs 0.40 0.20 - 0.80 K/cumm MONSE Comment:Testing performed by : [address] [address] Eosinophil abs 0.03 0.00 - 0.50 K/cumm [facility] Comment:Testing performed by : [address] [address] Basophil abs 0.04 0.00 - 0.10 K/cumm [facility] Comment:Testing performed by : [address] [address] Neutrophil pct 69.8 % BANNEREDUARDO Comment: Interpretive Data Percent cell count reference ranges are not reported, since discordance with absolute values may lead to misinterpretation of CBC data. Current Interpretive Data was last revised on 2017. Testing performed by: [address] [address] Imm gran pct 0.5 % MONSE Comment: Interpretive Data Percent cell count reference ranges are not reported, since discordance with absolute values may lead to misinterpretation of CBC data. Current Interpretive Data was last revised on 2017. Testing performed by: [address] [address] Lymphocyte pct 21.7 % CEREDUARDO Comment: Interpretive Data Percent cell count reference ranges are not reported, since discordance with absolute values may lead to misinterpretation of CBC data. Current Interpretive Data was last revised on 2017. Testing performed by: [address] [address] Monocyte pct 6.8 % MONSE Comment: Interpretive Data Percent cell count reference ranges are not reported, since discordance with absolute values may lead to misinterpretation of CBC data. Current Interpretive Data was last revised on 2017. Testing performed by: [address] [address] Eosinophil pct 0.5 % MONSE Comment: Interpretive Data Percent cell count reference ranges are not reported, since discordance with absolute values may lead to misinterpretation of CBC data. Current Interpretive Data was last revised on 2017. Testing performed by: [address] [address] Basophil pct 0.7 % OMNSE Comment: Interpretive Data Percent cell count reference ranges are not reported, since discordance with absolute values may lead to misinterpretation of CBC data. Current Interpretive Data was last revised on 2017. Testing performed by: [address] [address] Blood 07/27/2024 1:40 PM CDT 07/27/2024 1:45 PM CDT us Sabrina North [employer] OPER[employer] SPECIALIST LAB BLOOD ORDERABLES Final R esult MONSE [address] [facility] Department [place] [address] * CBC with auto differential (07/27/2024 1:40 PM CDT) WBC 5.89 3.80 - 9.90 K/cumm Comment:Testing performed by : [address] [address] Hgb 12.8 11.9 - 15.5 g/dL MONSE Comment:Testing performed by : [address] [address] Hct 37.9 35.6 - 45.5 % MONSE Comment:Testing performed by : [address] [address] Plt 224 150 - 400 K/cumm MONSE Comment:Testing performed by : [address] [address] MPV 10.1 9.1 - 12.3 fL MONSE Comment:Testing performed by : [address] [address] RBC 4.19 3.90 - 5.20 M/cumm MONSE Comment:Testing performed by : [address], [address] MCV 90.5 81.3 - 96.4 fL MONSE Comment:Testing performed by : [address] [address] MCH 30.5 27.1 - 33.3 pg MONSE Comment:Testing performed by : [address], [address] MCHC 33.8 32.3 - 35.7 g/dL MONSE Comment:Testing performed by : [address], [address] RDW CV 13.4 11.1 - 14.9 % MONSE Comment:Testing performed by : [address], [address] RDW SD 44.6 35.7 - 48.1 fL MONSE Comment:Testing performed by : [address], [address] NRBC abs 0.00 0.00 - 0.01 K/cumm MONSE Comment:Testing performed by : [address] [address] Blood 07/27/2024 1:40 PM CDT 07/27/2024 1:45 PM CDT us Sabrina North NP LAB BLOOD ORDERABLES Final R esult MONSE CORMIER [address] [place] [address] [place] [address] * Erythrocyte sedimentation rate (07/27/2024 1:40 PM CDT) Erythrocyte sedimentation rate 9 1 - 30 mm/hr Comment:Testing performed by : [address] [address] Blood 07/27/2024 1:40 PM CDT 07/27/2024 1:45 PM CDT Sabrina North [employer] SPECIALIST LAB BLOOD ORDERABLES Final R esult JACEY[address] [address] * CRP (acute phase) (07/27/2024 1:40 PM CDT) CRP 0.9 <=10.0 mg/L Comment:Testing performed by : [address] [address] Blood 07/27/2024 1:40 PM CDT 07/27/2024 1:45 PM CDT Sabrina North [employer] SPECIALIST LAB BLOOD ORDERABLES Final R esult Performing Organization Address City/[facility]/ZIP Co de Phone Number [address] [address] * TSH (07/27/2024 1:40 PM CDT) Thyroid Stimulating Hormone 2.79 0.30 - 4.20 mcIUnit/mL Comment:Testing performed by : [address] [address] Blood 07/27/2024 1:40 PM CDT 07/27/2024 1:45 PM CDT Sabrina North [employer] OPER[employer] SPECIALIST LAB BLOOD ORDERABLES Final R esult JACEY[address] [address] * Phosphorus (07/27/2024 1:40 PM CDT) [facility] Phosphorus, pl 3.3 2.3 - 4.5 mg/dL Comment:Testing performed by : [address] [address] Blood 07/27/2024 1:40 PM CDT 07/27/2024 1:45 PM CDT Sabrina North [employer]PER[employer] SPECIALIST LAB BLOOD ORDERABLES Final R esult Performing Organization Address [facility] Co de Phone Number [address] [address] * Magnesium (07/27/2024 1:40 PM CDT) [facility] Magnesium 1.6 1.4 - 2.5 mg/dL Comment:Testing performed by : [address] [address] Blood 07/27/2024 1:40 PM CDT 07/27/2024 1:45 PM CDT Sabrina North [employer]PER[employer] SPECIALIST LAB BLOOD ORDERABLES Final R esult Performing Organization Address City/[facility]/ZIP Co de Phone Number [address] [address] * Comprehensive metabolic panel (07/27/2024 1:40 PM CDT) [facility] Sodium 142 135 - 145 mmol/L Comment:Testing performed by : [address] [address] Potassium, pl 3.7 3.3 - 4.9 mmol/L MONSE Comment:Testing performed by : [address] [address] Chloride 106 97 - 110 mmol/L MONSE Comment:Testing performed by : [address] [address] CO2 27 22 - 32 mmol/L [facility] Comment:Testing performed by : [address] [address] Anion gap 9 2 - 15 mmol/L [facility] Comment:Testing performed by : [address] [address] BUN 13 6 - 25 mg/dL [facility] Comment:Testing performed by : [address], [place]., [address] Creatinine 0.60 0.60 - 1.10 mg/dL [facility] Comment:Testing performed by : [address] [address] Glucose 83 70 - 199 mg/dL [facility] Comment: Interpretive Data Fasting glucose >/= 126 mg/dl is diagnostic for diabetes. Fasting is defined as no caloric intake for at least 8 hours. Fasting glucose between 100 mg/dl to 125 mg/dl is diagnostic of prediabetes. In a patient with classic symptoms of hyperglycemia or hyperglycemic crisis, a random glucose >/= 200 mg/dl is diagnostic for diabetes. In the absence of unequivocal hyperglycemia, results should be confirmed by repeat testing. The classification and Diagnosis of Diabetes Diabetes Care 2021; 46: S19-S40. Current interpretive data was last revised 2022. Testing performed by: [address] [address] Calcium 9.0 8.5 - 10.3 mg/dL [facility] Comment:Testing performed by : [address] [address] Bilirubin, total 0.2 0.1 - 1.2 mg/dL [facility] Comment:Testing performed by : [address] [address] Protein, pl 6.8 6.5 - 8.5 g/dL [facility] Comment:Testing performed by : [address] [address] Albumin 4.1 3.5 - 5.0 g/dL [facility] Comment:Testing performed by : [address] [address] Alk phos 65 40 - 130 Units/L MONSE CORMIER Comment:Testing performed by : [address] [address] ALT 29 7 - 45 Units/L MONSE CORMIER Comment:Testing performed by : [address] [address] AST 29 10 - 45 Units/L MONSE CORMIER Comment:Testing performed by : [address] [address] Blood 07/27/2024 1:40 PM CDT 07/27/2024 1:45 PM CDT us Sabrina North NP LAB BLOOD ORDERABLES Final R esult MONSE CORMIER [address] [facility] Department [place] [address] from Last 3 Months Insurance [employer] [place] Advance Directives For more information, please contact: [phone] * Full Code (Latest Code Status on File) Date Activated Date Inactivated Comments 07/27/2024 11:51 AM 07/30/2024 4:15 PM Care Teams Egg Tester Relationship Specialty Start Date End Date Justa Rene MD [address] [address] PCP - General Nurse Practitioner 07/27/24
--- OUTSIDE RECORDS SUMMARY | 2024-08-20 06:45 | XMS_ITS | Referral Summary ---
Author Organization [facility] [address] Address [address] [place] [address] Care Team Providers Care Braiding Machine Tender Name Role Phone Justa Rene MD Primary Care Provider [phone]- [phone] Encounters Date Type Department Care Team Description 07/27/2024 11:33 AM CDT - 07/30/2024 12:10 PM CDT Hospital Encounter [place] [address] Med [address] [place] [id number] Salvador Ramos DO Telemaque, MD Coleman Laureano Ekanga Sunday, MD Cellulitis of axilla, unspecified laterality [L03.119] (Primary Dx); Cellulitis of axilla, unspecified laterality Discharge Disposition: Discharge to home or self care from Last 3 Months Allergies Active Allergy Reactions Criticality Noted Date [...] LEFT KNEE QID 1 10/13/19 18 025 Discontinued( erapy completed) AFLURIA QUAD 6588-1400, PF, 60 mcg/0.5 mL syringe ADM 0.5ML [...] TWICE DAILY. STOP BACTRIM / CIPRO 10/31/19 025 Discontinued( erapy completed) UNABLE TO FIND Take by mouth 025 Discontinued( erapy completed) UNABLE TO FIND Take by mouth 025 Discontinued( erapy completed) phentermine (ADIPEX-P) 37.5 mg tablet Take 37.5 mg by mouth daily 09/12/19 20 025 Discontinued( erapy completed) Movista Safety-Norma Tuberculin 1 mL 25 gauge x 5/8 syringe U ONCE Q MONTH 10/05/19 20 025 Discontinued( erapy completed) levoFLOXacin (LEVAQUIN) 500 mg tabletIndicati [...] Date Cellulitis of axilla, unspecified laterality 01/2025 Social History Tobacco Use Types Packs/Day Years Used Date Smoking Tobacco: Never [facility] Answer Date Recorded In the past 12 months has e electric, gas, oil, or water [employer] threatened to shut off services in your [...] 07/28/2024 How often do you attend chur ch or oriental orthodox services? Never 07/28/2024 Do you belong to any clubs o r organizations such as holiness groups, unions, fraternal or athletic groups, or [...] any time in the past 12 m [facility], were you homeless or living in a residential (including now)? No 07/28/2024 Personal Safety Answer Date Recorded Have you ever been in or are you currently in a harmful physical or emotional relationship or is someone making you feel afraid or unsafe? 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 Testing performed by: [address] [address] Blood 07/30/2024 3:22 AM CDT 07/30/2024 4:05 AM CDT us Ilia Cee MD LAB BLOOD ORDERABLES nal Result [place] [id number] [facility] Department [place] [address] * Differential, auto (07/30/2024 3:22 AM CDT) Neutrophil abs 2.07 1.50 - 6.50 K/cumm Comment:Testing performed by : [address] [address] Imm gran abs 0.01 0.00 - 0.10 K/cumm MONSE Comment:Testing performed by : [address] [address] Lymphocyte abs 1.84 0.80 - 3.30 K/cumm MONSE Comment:Testing performed by : [address] [address] Monocyte abs 0.54 0.20 - 0.80 K/cumm MONSE Comment:Testing performed by : [address] [address] Eosinophil abs 0.20 0.00 - 0.50 K/cumm MONSE Comment:Testing performed by : [address] [address] Basophil abs 0.05 0.00 - 0.10 K/cumm MONSE Comment:Testing performed by : [address] [address] Neutrophil pct 43.9 % MONSE Comment: Interpretive Data Percent cell count reference ranges are not reported, since discordance with absolute values may lead to misinterpretation of CBC data. Current Interpretive Data was last revised on 2017. Testing performed by: [address] [address] Imm gran pct 0.2 % [facility] Comment: Interpretive Data Percent cell count reference ranges are not reported, since discordance with absolute values may lead to misinterpretation of CBC data. Current Interpretive Data was last revised on 2017. Testing performed by: [address] [address] Lymphocyte pct 39.1 % [facility] Comment: Interpretive Data Percent cell count reference ranges are not reported, since discordance with absolute values may lead to misinterpretation of CBC data. Current Interpretive Data was last revised on 2017. Testing performed by: [address] [address] Monocyte pct 11.5 % [facility] Comment: Interpretive Data Percent cell count reference ranges are not reported, since discordance with absolute values may lead to misinterpretation of CBC data. Current Interpretive Data was last revised on 2017. Testing performed by: [address] [address] Eosinophil pct 4.2 % [facility] Comment: Interpretive Data Percent cell count reference ranges are not reported, since discordance with absolute values may lead to misinterpretation of CBC data. Current Interpretive Data was last revised on 2017. Testing performed by: [address] [address] Basophil pct 1.1 % [facility] Comment: Interpretive Data Percent cell count reference ranges are not reported, since discordance with absolute values may lead to misinterpretation of CBC data. Current Interpretive Data was last revised on 2017. Testing performed by: [address] [address] Blood 07/30/2024 3:22 AM CDT 07/30/2024 4:05 AM CDT us Ilia Cee MD LAB BLOOD ORDERABLES Fi nal Result MONSE 9181 [facility] Department [place] [address] * CBC with auto differential (07/30/2024 3:22 AM CDT) [facility] Signature WBC 4.71 3.80 - 9.90 K/cumm Comment:Testing performed by : [address] [address] Hgb 12.3 11.9 - 15.5 g/dL MONSE Comment:Testing performed by : [address] [address] Hct 37.0 35.6 - 45.5 % MONSE Comment:Testing performed by : [address] [address] Plt 228 150 - 400 K/cumm MONSE Comment:Testing performed by : [address] [address] MPV 10.0 9.1 - 12.3 fL MONSE Comment:Testing performed by : [address] [address] RBC 4.04 3.90 - 5.20 M/cumm MONSE Comment:Testing performed by : [address] [address] MCV 91.6 81.3 - 96.4 fL MONSE Comment:Testing performed by : [address] [address] MCH 30.4 27.1 - 33.3 pg MONSE Comment:Testing performed by : [address] [address] MCHC 33.2 32.3 - 35.7 g/dL MONSE Comment:Testing performed by : [address], [address] RDW CV 13.2 11.1 - 14.9 % MONSE Comment:Testing performed by : [address] [address] RDW SD 44.5 35.7 - 48.1 fL MONSE Comment:Testing performed by : [address] [address] NRBC abs 0.00 0.00 - 0.01 K/cumm MON[facility] Comment:Testing performed by : [address] [address] Blood 07/30/2024 3:22 AM CDT 07/30/2024 4:05 AM CDT Ilia Cee MD LAB BLOOD ORDERABLES Fi nal Result Performing Organization Address City/[facility] [address]/[facility] Co de Phone Number J[address] [place] [address] * Magnesium (07/30/2024 3:22 AM CDT) Pathologist [facility] Magnesium 1.8 1.4 - 2.5 mg/dL Comment:Testing performed by : [address] [address] Blood 07/30/2024 3:22 AM CDT 07/30/2024 4:05 AM CDT Ilia Cee MD LAB BLOOD ORDERABLES Fi nal Result Performing Organization Address [facility] [address]/[facility] de Phone Number [address] [place] [address] * (ABNORMAL) Comprehensive metabolic panel (07/30/2024 3:22 AM CDT) Pathologist [facility] Sodium 139 135 - 145 mmol/L Comment:Testing performed by : [address] [address] Potassium, pl 3.5 3.3 - 4.9 mmol/L [facility] [place] Comment:Testing performed by : [address] [address] Chloride 104 97 - 110 mmol/L [facility] Comment:Testing performed by : [address] [address] CO2 25 22 - 32 mmol/L [facility] Comment:Testing performed by : [address] [address] Anion gap 10 2 - 15 mmol/L [facility] Comment:Testing performed by : [address] [address] BUN 7 6 - 25 mg/dL MONSE Comment:Testing performed by : [address] [address] Creatinine 0.68 0.60 - 1.10 mg/dL MONSE Comment:Testing performed by : [address] [address] Glucose 80 70 - 199 mg/dL MONSE [...] was last revised 2022. Testing performed by: [address] [address] Calcium 8.8 8.5 - 10.3 mg/dL MONSE Comment:Testing performed by : [address] [address] Bilirubin, total 0.4 0.1 - 1.2 mg/dL MONSE Comment:Testing performed by : [address] [address] Protein, pl 6.2(L) 6.5 - 8.5 g/dL MONSE Comment:Testing performed by : [address] [address] Albumin 3.7 3.5 - 5.0 g/dL MONSE Comment:Testing performed by : [address] [address] Alk phos 55 40 - 130 Units/L MONSE Comment:Testing performed by : [address] [address] ALT 30 7 - 45 Units/L MONSE Comment:Testing performed by : [address] [address] AST 29 10 - 45 Units/L [facility] Comment:Testing performed by : [address] [address] Blood 07/30/2024 3:22 AM CDT 07/30/2024 4:05 AM CDT Ilia Cee MD LAB BLOOD ORDERABLES Fi nal Result Performing Organization Address [facility] [address]/[facility] Co de Phone Number [address] [place] [address] * Vancomycin level trough (07/29/2024 11:01 PM CDT) Pathologist [facility] Vancomycin trough 14.8 10.0 - 20.0 mcg/mL Comment:Testing performed by : [address] [address] Blood 07/29/2024 11:0 1 PM CDT 07/29/2024 11:08 PM CDT Ilia Cee MD LAB BLOOD ORDERABLES Fi nal Result Performing Organization Address [facility] [address]/[facility] de Phone Number [address] [address] * eGFR (07/29/2024 7:36 AM CDT) eGFR [...] was last reviewed 2020. Testing performed by: [address] [address] Blood 07/29/2024 7:36 AM CDT 07/29/2024 8:06 AM CDT us Ilia Cee MD LAB BLOOD ORDERABLES Fi nal Result MONSE [facility] Department [place] [address] * Basic metabolic panel (07/29/2024 7:36 AM CDT) Sodium 137 135 - 145 mmol/L Comment:Testing performed by : [address] [address] Potassium, pl 3.7 3.3 - 4.9 mmol/L MONSE Comment:Testing performed by : [address] [address] Chloride 104 97 - 110 mmol/L MONSE Comment:Testing performed by : [address] [address] CO2 24 22 - 32 mmol/L MONSE Comment:Testing performed by : [address] [address] Anion gap 9 2 - 15 mmol/L MONSE Comment:Testing performed by : [address] [address] BUN 6 6 - 25 mg/dL MONSE Comment:Testing performed by : [address] [address] Creatinine 0.63 0.60 - 1.10 mg/dL MONSE Comment:Testing performed by : [address] [address] Glucose 78 70 - 199 mg/dL MONSE [...] was last revised 2022. Testing performed by: [address] [address] Calcium 8.8 8.5 - 10.3 mg/dL [facility] Comment:Testing performed by : [address] [address] Blood 07/29/2024 7:36 AM CDT 07/29/2024 8:06 AM CDT us Ilia Cee MD LAB BLOOD ORDERABLES Fi nal Result Performing Organization Address [facility] [address]/[facility] Co de Phone Number [address] [employer] [place], [place] [id number] * (ABNORMAL) Vancomycin level trough (07/29/2024 12:10 AM CDT) [facility] Vancomycin trough 6.1(L) 10.0 - 20.0 mcg/mL Comment:Testing performed by : [address] [address] Blood 07/29/2024 12:1 0 AM CDT 07/29/2024 12:15 AM CDT us Sabrina North NP LAB BLOOD ORDERABLES Final R esult Performing Organization Address City/[facility] [address]/[facility] Co de Phone Number [address] [place] [address] * eGFR (07/28/2024 5:38 AM CDT) [facility] eGFR >90 >=60 mL/min/1. 73 m2 Comment: [...] of Race in Diagnosing Kidney Disease, JASN 202). The CKD-EPI equation should not be used for patients with unstable renal function and has not been validated in children and those over 70. Current interpretive data was last reviewed 2020. Testing performed by: [address] [address] Blood 07/28/2024 5:38 AM CDT 07/28/2024 6:06 AM CDT us Sabrina North NP LAB BLOOD ORDERABLES Final R esult MONSE 3334 [facility] Department [place] [address] * Differential, auto (07/28/2024 5:38 AM CDT) Neutrophil abs 1.53 1.50 - 6.50 K/cumm Comment:Testing performed by : [address] [address] Imm gran abs 0.01 0.00 - 0.10 K/cumm MONSE Comment:Testing performed by : [address] [address] Lymphocyte abs 1.95 0.80 - 3.30 K/cumm MONSE Comment:Testing performed by : [address] [address] Monocyte abs 0.48 0.20 - 0.80 K/cumm MONSE Comment:Testing performed by : [address] [address] Eosinophil abs 0.15 0.00 - 0.50 K/cumm MONSE Comment:Testing performed by : [address] [address] Basophil abs 0.06 0.00 - 0.10 K/cumm [facility] Comment:Testing performed by : [address] [address] Neutrophil pct 36.6 % [facility] Comment: Interpretive Data Percent cell count reference ranges are not reported, since discordance with absolute values may lead to misinterpretation of CBC data. Current Interpretive Data was last revised on 2017. Testing performed by: [address] [address] Imm gran pct 0.2 % [facility] Comment: Interpretive Data Percent cell count reference ranges are not reported, since discordance with absolute values may lead to misinterpretation of CBC data. Current Interpretive Data was last revised on 2017. Testing performed by: [address] [address] Lymphocyte pct 46.7 % [facility] Comment: Interpretive Data Percent cell count reference ranges are not reported, since discordance with absolute values may lead to misinterpretation of CBC data. Current Interpretive Data was last revised on 2017. Testing performed by: [address] [address] Monocyte pct 11.5 % [facility] Comment: Interpretive Data Percent cell count reference ranges are not reported, since discordance with absolute values may lead to misinterpretation of CBC data. Current Interpretive Data was last revised on 2017. Testing performed by: [address] [address] Eosinophil pct 3.6 % [facility] Comment: Interpretive Data Percent cell count reference ranges are not reported, since discordance with absolute values may lead to misinterpretation of CBC data. Current Interpretive Data was last revised on 2017. Testing performed by: [address] [address] Basophil pct 1.4 % [facility] Comment: Interpretive Data Percent cell count reference ranges are not reported, since discordance with absolute values may lead to misinterpretation of CBC data. Current Interpretive Data was last revised on 2017. Testing performed by: [address] [address] Blood 07/28/2024 5:38 AM CDT 07/28/2024 6:07 AM CDT us Sabrina North THREADING MACHINE FEEDER [employer]IC LAB BLOOD ORDERABLES Final R esult [facility] 48[address] [facility] Department [place] [address] * CBC with auto differential (07/28/2024 5:38 AM CDT) WBC 4.18 3.80 - 9.90 K/cumm Comment:Testing performed by : [address] [address] Hgb 12.0 11.9 - 15.5 g/dL MONSE Comment:Testing performed by : [address] [address] Hct 37.1 35.6 - 45.5 % MONSE Comment:Testing performed by : [address] [address] Plt 207 150 - 400 K/cumm MONSE Comment:Testing performed by : [address] [address] MPV 10.0 9.1 - 12.3 fL MONSE Comment:Testing performed by : [address] [address] RBC 3.99 3.90 - 5.20 M/cumm MONSE Comment:Testing performed by : [address] [address] MCV 93.0 81.3 - 96.4 fL MONSE Comment:Testing performed by : [address] [address] MCH 30.1 27.1 - 33.3 pg MONSE [facility] Comment:Testing performed by : [facility], [address] [place] [address]., [address] MCHC 32.3 32.3 - 35.7 g/dL MON[facility] [place] Comment:Testing performed by : [address] [address] RDW CV 13.4 11.1 - 14.9 % [facility] Comment:Testing performed by : [address] [address] RDW SD 45.7 35.7 - 48.1 fL [facility] Comment:Testing performed by : [address] [address]696 NRBC abs 0.00 0.00 - 0.01 K/cumm [facility] [place] Comment:Testing performed by : [address] [address] Blood 07/28/2024 5:38 AM CDT 07/28/2024 6:07 AM CDT us Sabrina North THREADING MACHINE FEED[employer] LAB BLOOD ORDERABLES Final R esult Performing Organization Address City/[facility] [address]/ZIP Co de Phone Number [address] [place] [address] * Phosphorus (07/28/2024 5:38 AM CDT) [facility] Phosphorus, pl 2.8 2.3 - 4.5 mg/dL Comment:Testing performed by : [address] [address] Blood 07/28/2024 5:38 AM CDT 07/28/2024 6:06 AM CDT Sabrina North THREADING MACHINE FEED[employer] LAB BLOOD ORDERABLES Final R esult [address] [address] * Magnesium (07/28/2024 5:38 AM CDT) [facility] Magnesium 1.8 1.4 - 2.5 mg/dL Comment:Testing performed by : [address] [address] Blood 07/28/2024 5:38 AM CDT 07/28/2024 6:06 AM CDT us Sabrina North THREADING MACHINE FEED[employer] LAB BLOOD ORDERABLES Final R esult [facility] 45[address] [facility] Department [place] [address] * (ABNORMAL) Basic metabolic panel (07/28/2024 5:38 AM CDT) Pathologist [facility] Sodium 141 135 - 145 mmol/L Comment:Testing performed by : [address] [address] Potassium, pl 3.7 3.3 - 4.9 mmol/L MONSE Comment:Testing performed by : [address] [address] Chloride 108 97 - 110 mmol/L MONSE Comment:Testing performed by : [address] [address] CO2 24 22 - 32 mmol/L MONSE Comment:Testing performed by : [address] [address] Anion gap 9 2 - 15 mmol/L MONSE Comment:Testing performed by : [address] [address] BUN 8 6 - 25 mg/dL MONSE Comment:Testing performed by : [address] [address] Creatinine 0.59(L) 0.60 - 1.10 mg/dL MONSE Comment:Testing performed by : [address] [address] Glucose 79 70 - 199 mg/dL MONSE [...] was last revised 2022. Testing performed by: [facility], [address] [place] [address]., [address] Calcium 8.5 8.5 - 10.3 mg/dL [facility] Comment:Testing performed by : [facility], [address] [place] [address]., [address] Blood 07/28/2024 5:38 AM CDT 07/28/2024 6:06 AM CDT us Sabrina North NP LAB BLOOD ORDERABLES Final R esult [facility] [place] 6[address] [facility] Department [place] [address] * CT Chest WO Contrast (07/27/2024 8:35 [...] by Alma Sadler M.D. SN: Report ID: [id number] Reading Location: [id number] Procedure Note Alma Sadler MD - 07/27/2024 [...] by Alma Sadler M.D. SN: Report ID: [id number] Reading Location: [id number] Sabrina North THREADING MACHINE FEEDER AUTOMATIC IMG CT PROCEDURES Final Resu lt * Lactate (07/27/2024 1:40 PM CDT) Lactate 0.9 0.7 - 2.0 mmol/L Comment:Testing performed by : [facility], [address] [place] [address]., [address] Blood 07/27/2024 1:40 PM CDT 07/27/2024 1:46 PM CDT Sabrina North NP LAB BLOOD ORDERABLES Final R esult MONSE 23[address] [facility] Department [place] [address] * eGFR (07/27/2024 1:40 PM [...] was last reviewed 2020. Testing performed by: [address] [address] Blood 07/27/2024 1:40 PM CDT 07/27/2024 1:45 PM CDT us Sabrina North THREADING MACHINE [employer] LAB BLOOD ORDERABLES Final R esult [facility] 7698 [facility] Department [place] [address] * Differential, auto (07/27/2024 1:40 PM CDT) Pathologist [facility] Neutrophil abs 4.11 1.50 - 6.50 K/cumm Comment:Testing performed by : [address] [address] Imm gran abs 0.03 0.00 - 0.10 K/cumm [facility] [place] Comment:Testing performed by : [address] [address] Lymphocyte abs 1.28 0.80 - 3.30 K/cumm MONSE Comment:Testing performed by : [address] [address] Monocyte abs 0.40 0.20 - 0.80 K/cumm [facility] Comment:Testing performed by : [address] [address] Eosinophil abs 0.03 0.00 - 0.50 K/cumm [facility] Comment:Testing performed by : [address] [address] Basophil abs 0.04 0.00 - 0.10 K/cumm [facility] Comment:Testing performed by : [address] [address] Neutrophil pct 69.8 % [facility] Comment: Interpretive Data Percent cell count reference ranges are not reported, since discordance with absolute values may lead to misinterpretation of CBC data. Current Interpretive Data was last revised on 2017. Testing performed by: [address] [address] Imm gran pct 0.5 % [facility] Comment: Interpretive Data Percent cell count reference ranges are not reported, since discordance with absolute values may lead to misinterpretation of CBC data. Current Interpretive Data was last revised on 2017. Testing performed by: [address] [address] Lymphocyte pct 21.7 % [facility] Comment: Interpretive Data Percent cell count reference ranges are not reported, since discordance with absolute values may lead to misinterpretation of CBC data. Current Interpretive Data was last revised on 2017. Testing performed by: [address] [address] Monocyte pct 6.8 % [facility] Comment: Interpretive Data Percent cell count reference ranges are not reported, since discordance with absolute values may lead to misinterpretation of CBC data. Current Interpretive Data was last revised on 2017. Testing performed by: [address] [address] Eosinophil pct 0.5 % [facility] Comment: Interpretive Data Percent cell count reference ranges are not reported, since discordance with absolute values may lead to misinterpretation of CBC data. Current Interpretive Data was last revised on 2017. Testing performed by: [address] [address] Basophil pct 0.7 % [facility] Comment: Interpretive Data Percent cell count reference ranges are not reported, since discordance with absolute values may lead to misinterpretation of CBC data. Current Interpretive Data was last revised on 2017. Testing performed by: [address] [address] Blood 07/27/2024 1:40 PM CDT 07/27/2024 1:45 PM CDT us Sabrina North THREADING MACHINE [employer] LAB BLOOD ORDERABLES Final R esult [facility] [address] [facility] Department [place] [address] * CBC with auto differential (07/27/2024 1:40 PM CDT) WBC 5.89 3.80 - 9.90 K/cumm Comment:Testing performed by : [address] [address] Hgb 12.8 11.9 - 15.5 g/dL MONSE Comment:Testing performed by : [address] [address] Hct 37.9 35.6 - 45.5 % [facility] Comment:Testing performed by : [address] [address] Plt 224 150 - 400 K/cumm MON[facility] Comment:Testing performed by : [address] [address] MPV 10.1 9.1 - 12.3 fL MONSE Comment:Testing performed by : [address] [address] RBC 4.19 3.90 - 5.20 M/cumm [facility] Comment:Testing performed by : [address] [address] MCV 90.5 81.3 - 96.4 fL MON[facility] Comment:Testing performed by : [address] [address] MCH 30.5 27.1 - 33.3 pg [facility] [place] Comment:Testing performed by : [address] [address]273 MCHC 33.8 32.3 - 35.7 g/dL [facility] Comment:Testing performed by : [address], [address] RDW CV 13.4 11.1 - 14.9 % [facility] Comment:Testing performed by : [address], [address] RDW SD 44.6 35.7 - 48.1 fL [facility] Comment:Testing performed by : [address] [address] NRBC abs 0.00 0.00 - 0.01 K/cumm [facility] Comment:Testing performed by : [address], [address] Blood 07/27/2024 1:40 PM CDT 07/27/2024 1:45 PM CDT us Sabrina North THREADING MACHINE [employer]ER [employer]OM[employer] LAB BLOOD ORDERABLES Final R esult Performing Organization Address [facility] Co de Phone Number [address] [place] [address] * Erythrocyte sedimentation rate (07/27/2024 1:40 PM CDT) Erythrocyte sedimentation rate 9 1 - 30 mm/hr Comment:Testing performed by : [address] [id number] Blood 07/27/2024 1:40 PM CDT 07/27/2024 1:45 PM CDT Sabrina North THREADING MACHINE FEEDER AUTOMATIC LAB BLOOD ORDERABLES Final R esult Performing Organization Address City/[facility] [address]/[facility] Co de Phone Number [address] [place] [address] * CRP (acute phase) (07/27/2024 1:40 PM CDT) Pathologist [facility] CRP 0.9 <=10.0 mg/L Comment:Testing performed by : [address] [id number] Blood 07/27/2024 1:40 PM CDT 07/27/2024 1:45 PM CDT Sabrina North THREADING MACHINE FEEDER AUTOMATIC LAB BLOOD ORDERABLES Final R esult [address] [place] [address] * TSH (07/27/2024 1:40 PM CDT) [facility] Thyroid Stimulating Hormone 2.79 0.30 - 4.20 mcIUnit/mL Comment:Testing performed by : [address] [id number] Blood 07/27/2024 1:40 PM CDT 07/27/2024 1:45 PM CDT Sabrina North THREADING MACHINE FEEDER AUTOMATIC LAB BLOOD ORDERABLES Final R esult Performing Organization Address [facility] [address]/[facility] Co de Phone Number [address] [place] [address] * Phosphorus (07/27/2024 1:40 PM CDT) Pathologist [facility] Phosphorus, pl 3.3 2.3 - 4.5 mg/dL Comment:Testing performed by : [address] [address] Blood 07/27/2024 1:40 PM CDT 07/27/2024 1:45 PM CDT Sabrina North THREADING MACHINE FEEDER AUTOMATIC LAB BLOOD ORDERABLES Final R esult Performing Organization Address City/[facility] [address]/ZIP Co de Phone Number [address] [place] [address] * Magnesium (07/27/2024 1:40 PM CDT) Pathologist [facility] Magnesium 1.6 1.4 - 2.5 mg/dL Comment:Testing performed by : [address] [address] Blood 07/27/2024 1:40 PM CDT 07/27/2024 1:45 PM CDT Sabrina North THREADING MACHINE FEEDER AUTOMATIC LAB BLOOD ORDERABLES Final R esult [facility] [address] [facility] Department [place] [address] * Comprehensive metabolic panel (07/27/2024 1:40 PM CDT) Pathologist [facility] Sodium 142 135 - 145 mmol/L Comment:Testing performed by : [address] [address] Potassium, pl 3.7 3.3 - 4.9 mmol/L MONSE Comment:Testing performed by : [address] [address] Chloride 106 97 - 110 mmol/L MONSE Comment:Testing performed by : [address] [address] CO2 27 22 - 32 mmol/L MONSE Comment:Testing performed by : [address] [address] Anion gap 9 2 - 15 mmol/L MONSE Comment:Testing performed by : [address] [address] BUN 13 6 - 25 mg/dL MONSE Comment:Testing performed by : [address] [address] Creatinine 0.60 0.60 - 1.10 mg/dL MONSE Comment:Testing performed by : [address] [address] Glucose 83 70 - 199 mg/dL MONSE Comment: Interpretive [...] was last revised 2022. Testing performed by: [address] [address] Calcium 9.0 8.5 - 10.3 mg/dL MONSE Comment:Testing performed by : [address] [address] Bilirubin, total 0.2 0.1 - 1.2 mg/dL MONSE Comment:Testing performed by : [address] [address] Protein, pl 6.8 6.5 - 8.5 g/dL MONSE Comment:Testing performed by : [address] [address] Albumin 4.1 3.5 - 5.0 g/dL MONSE Comment:Testing performed by : [address] [address] Alk phos 65 40 - 130 Units/L MONSE Comment:Testing performed by : [address] [address] ALT 29 7 - 45 Units/L MONSE Comment:Testing performed by : [address] [address] AST 29 10 - 45 Units/L MONSE Comment:Testing performed by : [address] [address] Blood 07/27/2024 1:40 PM CDT 07/27/2024 1:45 PM CDT us Sabrina North NP LAB BLOOD ORDERABLES Final R esult [facility] [address] [facility] [place] [address] from Last 3 Months Insurance [facility] [place] Advance Directives For more information, please contact: [phone] * Full Code (Latest Code Status on File) Date Activated Date Inactivated Comments 07/27/2024 11:51 AM 07/30/2024 4:15 PM Care Teams Braiding Machine Tender Relationship Specialty Start Date End Date Justa Rene MD [address] [place] [address] PCP - General Nurse Practitioner 07/27/24
--- OUTSIDE RECORDS SUMMARY | 2024-08-20 06:45 | XMS_ITS | Clinical Summary ---
Author Organization [facility] Address [address] [place] [address] Phone Care Team Providers Care Rag Boiler Name Role Phone Justa Rene APRN, DIST[employer]BUTION [employer] Primary Care Provid er Allergies Active Allergy Reactions Criticality Noted Date Comments Chlorhexidine Hives Medium 07/27/2024 Penicillins Unknown 02/22/2015 Medications levothyroxine (SYNTHROID) 125 MCG Tablet Take 125 mcg by mouth daily. 02/20/19 25 Active rosuvastatin (CRESTOR) 10 MG Tablet Take 10 mg by mouth nightly. 11/03/19 24 Active sertraline (ZOLOFT) 100 MG Tablet Take 100 mg by mouth daily. 11/18/19 24 Active Cyanocobalamin (B-12 COMPLIANCE INJECTION IJ) by Injection route. Active other by Other route. Gruns vitamins Active promethazine (PHENERGAN) 25 MG Tablet TAKE 1/2 TABLET BY MOUTH EVERY 6 HOURS NEEDED 05/20/19 25 Active Sutab 7122-776-670 MG Tablet TAKE BY MOUTH DIRECTED BY OFFICE INSTRUCTIONS 05/09/19 25 Active doxycycline hyclate (VIBRAMYCIN) 100 MG Capsule 05/03/19 25 Active predniSONE (DELTASONE) 20 MG Tablet 05/03/19 25 Active cephALEXin (KEFLEX) 500 MG Capsule 07/15/19 25 Active Bimzelx 320 MG/2ML Solution Auto-injector 07/28/19 25 Active Cetirizine HCl 5 MG Chewable Tablet Take 5 mg by mouth daily. Active pantoprazole (PROTONIX) 40 MG Tablet Delayed Response Take 40 mg by mouth daily. 05/31/19 Active spironolactone (ALDACTONE) 100 MG Tablet Take 100 mg by mouth daily. Active Topiramate 50 MG Tablet Take 50 mg by mouth. 05/31/19 Active polyethylene glycol-electro lytes (NULYTELY) 420 GM Recon Soln TAKE DIRECTED BY OFFICE 05/20/19 025 Discontinu ed(Med List Clean Up) levoFLOXacin (LEVAQUIN) 500 MG Tablet Take 500 mg by mouth. 07/31/19 025 Active Problems No known active problems Encounters Date Type Department Care Team Description 08/09/2024 Telephone [facility] [address] [address] Marisol Salazar MD 08/03/2024 10:30 AM CDT Office Visit [facility] [address] [address] Marisol Salazar MD Rash (Primary Dx); Adenopathy; Other fatigue; Colonic thickening; Axillary lymphadenopathy; Elevated serum immunoglobulin free light chain level 08/03/2024 Travel 05/24/2024 10:00 AM CDT Office [facility] [address] [address] Marisol Salazar MD Axillary lymphadenopathy (Primary Dx); Elevated serum immunoglobulin free light chain level; Colonic thickening; Rash; Other fatigue 05/24/2024 Travel from Last 3 Months Immunizations Immunization Administration Dates Next Due Hepatitis B-CpG 05/28/2023 Pneumococcal conjugate PCV20 , polysaccharide [id number] conjugate, adjuvant, PF 02/20/2022 Zoster Vaccine Recombinant 05/08/2022,02/20/2022 Family History Medical History Relation Name Comments Asthma Daughter Cancer Father Diabetes Father Autoimmune Disease Mother Asthma Son Relation Name Status Comments Daughter Alive Father Mother Alive Sister Alive Son Alive Social History Tobacco Use Types Packs/Day Years Used Date Smoking Tobacco: Former Cigarettes Q uit: 1995 Smokeless Tobacco: Never Alcohol Use Standard Drinks/Week Comments Yes 0 (1 standard drink = 0.6 oz pur e alcohol) 12 per year Comments Unknown Sex and Gender Information Value Date Recorded Sex Assigned at Not on file Legal 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 Gender Identity Not on file Sexual Orientation Not on file Last Filed Vital Signs Vital Sign Reading Time Taken Comments Blood Pressure 124/78 08/03/2024 10:32 AM CDT Pulse 94 08/03/2024 10:32 AM CDT Temperature 36.9 C (98.4 F) 08/03/2024 10:32 AM CDT Respiratory Rate 18 08/03/2024 10:32 AM CDT Oxygen Saturation 99% 08/03/2024 10:32 AM CDT Inhaled Oxygen Concentration - - Weight 53.8 kg (118 lb 8 oz) 08/03/2024 10:32 AM CDT Height 162.6 cm (5' 4) 08/03/2024 10:32 AM CDT Body Mass Index 20.34 08/03/2024 10:32 AM CDT Plan of Treatment Upcoming Encounters Date Type Department Care Team (Late st Contact Info) Description 11/02/2024 10:15 AM CDT Lab [facility] [address] [id number] Lab, Cc [facility] 11/02/2024 10:30 AM CDT Office [facility] [address] [phone] Marisol Salazar MD [address] [place] [id number] Health Maintenance Due Date Last Done Comments TdaP Immunization 1970 Pap Smear 12/21/1991 Cervical Cancer Screening (CCS) 2000 HPV/Cotest 2000 Cologuard 12/21/2015 Colonoscopy 12/21/2015 Colorectal Cancer Screening 12/21/2015 Immunochemical Fecal Occult Blood 12/21/2015 Hepatitis B Immunization (2 of 2 - CpG 2-dose series) 06/25/2023 05/28/2023 SARS-COV-2 Immunization ( season) 2023 07/08/2021, 07/30/2020 Influenza Immunization (Seas on Ended) 2024 11/19/2017, 11/28/2015 Mammogram 01/25/2025 01/26/2024, 01/26/2024, 04/13/2022 Respiratory Syncytial Virus (RSV) Immunization (Adult) (1 - 1-dose 75+ series) 2045 Hepatitis C Virus (HCV) Screening Completed 01/06/2022 Pneumococcal Immunization (5 0+ years) Completed 02/20/2022 Zoster Immunization Completed 05/08/2022, 02/20/2022 Human Papillomavirus (HPV) Immunization Aged Out No longer eligible b ased on patient's age to complete this topic Meningococcal Immunization (ACWY) Aged Out No longer eligible b ased on patient's age to complete this topic Rotavirus Immunization Aged Out No lo nger eligible based on patient's age to complete this topic Insurance [facility] Care Teams Rag Boiler Relationship Specialty Start Date End Date Justa Rene, SUPERVISOR [employer] SERVICES, DISTRIBUTION LINEMAN [address] [place] [address] PCP - General Advanced Practice Nurse 03/17/24
--- OUTSIDE RECORDS SUMMARY | 2024-08-20 06:45 | XMS_ITS | Encounter Summary ---
Author Organization [facility] Address [address] [place] [address] Phone Care Team Providers Care Tugboat Captain Name Role Phone Justa Rene APRN, CNP Primary Care Provid er Encounter Details Date Type Department Care Team (Late st Contact Info) Description 03/22/2024 Telephone [facility] [address] [phone] Marisol Salazar MD [address] [place] [phone] Social History Tobacco Use Types Packs/Day Years Used Date Smoking Tobacco: Former Cigarettes Smokeless Tobacco: Never Alcohol Use Standard Drinks/Week Comments Yes 0 (1 standard drink = 0.6 oz pur e alcohol) 12 per year Comments Unknown Sex and Gender Information Value Date Recorded Sex Assigned at Not on file Legal 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 Question Answer Date of Assessment Author Patient Health Questionnaire -2 Score 2 03/22/2024 11:02 AM HOME HOSPICE AIDE Ganesh Alberto CMA documented as of this encounter Miscellaneous Notes * Telephone Encounter - Anastacia Yun - 03/22/2024 2:44 PM CST Faxed request for path report from skin biopsy done at [facility], and [facility] D[facility]ology. HOSPICE AIDE documented in this encounter Plan of Treatment Upcoming Encounters Date Type Department Care Team (Late st Contact Info) Description 11/02/2024 10:15 AM CDT Lab [facility] [address] [phone] Lab, Cc [facility] 11/02/2024 10:30 AM CDT Office Visit [facility] [address] [phone] Marisol Salazar MD [address] [place] [phone] documented as of this encounter Visit Diagnoses Not on filedocumented in this encounter Care Teams Tugboat Captain Relationship Specialty Start Date End Date Justa Rene, INTERNET SALESPERSON, MELTER SUPERVISOR [employer]NACE [address] [place] [address] PCP - General Advanced Practice Nurse 03/17/24 documented as of this encounter
--- OUTSIDE RECORDS SUMMARY | 2024-08-20 06:45 | XMS_ITS | Data Portability ---
Author Organization [employer] , [facility] Address [address] [place] [address] Assessment No assessment recorded. Plan of Treatment Reminders Order Date Submit Date Provider Last Modified By Organization Details Last Modified Time Details Appointments None recorded. Lab HPV E6+E7 mRNA, qualitativ e PCR, cervix 2024 025 [facility], [address] [place], [address], 5 14:58:24 pap, LB 2024 025 [facility], [address] [place], [address], 5 19:54:39 pap, LB 2021 022 [facility], [address] [place], [address], 2 09:27:30 HPV E6+E7 mRNA, qualitativ e PCR, cervix 2021 022 [facility], [address] [place], [address], 2 20:29:31 Referral None recorded. Procedures None recorded. Surgeries None recorded. Imaging MAMMO, screening, digital, bilateral 2021 022 ricenogle Not available 13:26:41 Medication Orders None recorded. Patient TargetsNo targets recorded. Patient Instructions Encounter Date Encounter Id Patient Instructions Last Modified By Organization Details Last Modified Time 06/16/2021 [id number] Patient Health Questionnaire-2* [email or web address] Not available 08/19/2021 12:08:31 Patient Health Questionnaire-9* ricenogle Not available 08/19/2021 12:08:31 abuse/domestic violence education tcarrell Not available 06/16/2021 16:52:27 eating healthy foods: care instructions tcarrell Not available 06/16/2021 16:52:27 general health care education tcarrell Not available 06/16/2021 16:52:27 weight managemen t education tcarrell Not available 06/16/2021 16:52:27 mammogram: about this test tcarrell Not available 06/16/2021 16:52:27 05/17/2024 [id number] body mass index: care instructions Not available 05/17/2024 10:51:33 mammogram: about this test Not available 05/17/2024 10:51:33 Reason for Referral None Reported. Results Created Date Observation Date Name Description Value Unit Range Abnormal Flag Note LastModifiedBy Organization Detail LastModifiedTime 06/17/19 22 06/17/2021 HPV HIGH RISK HPV high risk Negati ve negati ve normal The HPV High Risk assay is inten ded for use as co-te sting with cytol ogy and not as a subst itute for regul ar cervi cee cytol ogy scree caryn. This assay is not inten ded for use as a scree caryn devic e for women under age 30 with irvin l cervi cee cytol ogy. Not Available [address], [address], 06/17/2021 20:29:31 06/17/19 22 06/19/2021 THINP REP TIS PAP clinical information: normal Infor matio n not provi ded Not Available [employer] [facility] [address] [place], [address], 06/19/2021 09:27:29 06/17/19 22 06/19/2021 THINP REP TIS PAP LMP: normal NONE GIVEN Not Available [employer] [facility] [address] [place], [address], 06/19/2021 09:27:29 06/17/19 22 06/19/2021 THINP REP TIS PAP prev. Pap: normal NONE GIVEN Not Available [address], [address], 06/19/2021 09:27:29 06/17/19 22 06/19/2021 THINP REP TIS PAP prev. BX: normal NONE GIVEN Not Available [address], [address], 06/19/2021 09:27:29 06/17/19 22 06/19/2021 THINP REP TIS PAP source: normal None given Not Available [address], [address], 06/19/2021 09:27:29 06/17/19 22 06/19/2021 THINP REP TIS PAP statement of adequacy: normal Satis facto ry for evalu ation . Endoc ervic al/tr ansfo rmati on zone compo nent absen t. Age and/o r menst rual statu s not provi ded Not Available [address], [address], 06/19/2021 09:27:29 06/17/19 22 06/19/2021 THINP REP TIS PAP interpretati on/result: normal Negat huang for intra epith elial lesio n or gerald collazo . Not Available [address], [address], 06/19/2021 09:27:29 06/17/19 22 06/19/2021 THINP REP TIS PAP comment: normal This Pap test has been evalu ated with compu ter teddy lulú techn ology . Not Available [address], [address], 06/19/2021 09:27:29 06/17/19 22 06/19/2021 THINP REP TIS PAP cytotechnolo gist: normal ROBERTSON, CT( CP) CT Scree caryn locat ion: [id number] [place] [address] Not Available [employer] [facility] [address] [place], [address], 06/19/2021 09:27:29 06/17/19 22 06/19/2021 THINP REP TIS PAP comment EXPLA NATOR Y NOTE: The Pap is a scree caryn test for cervi cee cance r. It is not a diagn ostic test and is subje ct to false negat huang and false posit huang resul ts. It is most relia ble when a satis facto ry sampl e, regul dinesh obtai mónica, is submi tted with relev ant clini cee findi ngs and histo ry, and when the Pap resul t is evalu ated along with histo audrey and curre nt clini cee infor matio n. Not Available [employer] [facility] [address] [address], [place], [address], 06/19/2021 09:27:29 05/18/19 25 05/19/2024 HPV HIGH RISK HPV high risk Negati ve negati ve normal The HPV High Risk assay is inten ded for use as co-te sting with cytol ogy and not as a subst itute for regul ar cervi cee cytol ogy scree caryn. This assay is not inten ded for use as a scree caryn devic e for women under age 30 with irvin l cervi cee cytol ogy. Not Available [address], [address], 05/19/2024 14:58:24 05/18/19 25 05/19/2024 THINP REP TIS PAP clinical information: normal None given Not Available [employer] [facility] [address] [address], [place], [address], 05/19/2024 19:54:39 05/18/19 25 05/19/2024 THINP REP TIS PAP LMP: normal NONE GIVEN Not Available [address] [place], [address], 05/19/2024 19:54:39 05/18/19 25 05/19/2024 THINP REP TIS PAP prev. Pap: normal NONE GIVEN Not Available [address] [place], [address], 05/19/2024 19:54:39 05/18/19 25 05/19/2024 THINP REP TIS PAP prev. BX: normal NONE GIVEN Not Available [address], [address], 05/19/2024 19:54:39 05/18/19 25 05/19/2024 THINP REP TIS PAP source: normal Cervi x Not Available [address], [address], 05/19/2024 19:54:39 05/18/19 25 05/19/2024 THINP REP TIS PAP statement of adequacy: normal Satis facto ry for evalu ation . Endoc ervic al/tr ansfo rmati on zone compo nent prese nt. Age and/o r menst rual statu s not provi ded Not Available [address], [address], 05/19/2024 19:54:39 05/18/1905/19/2024 THINP REP TIS PAP interpretati on/result: normal Cytol ogy Resul ts: Negat huang for intra epith elial lesio n or malig zay . Not Available [address], [address], 05/19/2024 19:54:39 05/18/19 25 05/19/2024 THINP REP TIS PAP comment: normal This Pap test has been evalu ated with compu ter teddy lulú techn ology . Not Available [address], [address], 05/19/2024 19:54:39 05/18/19 25 05/19/2024 THINP REP TIS PAP cytotechnolo gist: normal ABC, CT( CP) CT scree caryn locat ion: [place] [address] [place] [address] Not Available [facility] [address] [address], [place], [address], 05/19/2024 19:54:39 05/18/19 25 05/19/2024 THINP REP TIS PAP comment EXPLA NATOR Y NOTE: The Pap is a scree caryn test for cervi cee cance r. It is not a diagn ostic test and is subje ct to false negat huang and false posit huang resul ts. It is most relia ble when a satis facto ry sampl e, regul dinesh obtai mónica, is submi tted with relev ant clini cee findi ngs and histo ry, and when the Pap resul t is evalu ated along with histo audrey and curre nt clini cee infor matio n. Not Available [facility] [address] [address], [place], [address], 05/19/2024 19:54:39 Result Notes None recorded. Problems Name Problem SNOMED Code Status Onset Date Resolution Date Notes Provider Name and Address Organization Details Recorded Time Disorder of endocrin e system 787291117 Active 2017 Hormone imbalanc e; Location : None Progress : Stable Added By: Lina James Add to Current Problems : NO ProblemS tatus: Current Not Available [facility] 2 09:42:50 Clinical finding Active 2017 Endocrin e disorder , unspecif ied; Progress : Stable Added By: Lina James Add to Current Problems : YES ProblemS tatus: Current Not Available [facility] 2 09:43:06 Breast neoplasm screenin g NOS Completed 201506/08/2015 Screenin g mammogra m - other; Location : None Severity : Moderate Progress : Stable Added By: Basim Nogueira Add to Current Problems : YES ProblemS tatus: Resolve Screenin g mammogra m - other; Severity : Moderate Progress : Stable Added By: Sea Reynolds Add to Current Problems : NO ProblemS tatus: Resolve; Start Date : 05/10/19 15 Not Available [facility] 1 03:41:36 Menopaus e present 658233026 Active 2015 Menopaus al and female climacte audrey states; Progress : Stable Added By: Mi Nguyen Add to Current Problems : YES ProblemS tatus: Current Perimeno pausal disorder ; Location : None Progress : Stable Added By: Jenny Benavides Add to Current Problems : YES ProblemS tatus: Current Not Available [facility] 2 09:43:06 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, unspecif ied; Progress : Stable Added By: Basim Nogueira Add to Current Problems : YES ProblemS tatus: Current Hypothyr oidism; Location : None Progress : Stable Added By: Basim Nogueira Add to Current Problems : NO ProblemS tatus: Current Not Available [facility] 2 09:42:58 Evaluati on finding 139514051 Active 2017 Other abnormal and inconclu sive findings on diagnost ic imaging of breast; Progress : Stable Added By: Dominga Wallis Add to Current Problems : YES ProblemS tatus: Current Not Available [facility] 2 09:42:58 Family history of Ovarian carcinom a Active 2017 Family history of ovarian cancer; Location : None Severity : Moderate Progress : Stable Added By: Promise Dalal Add to Current Problems : YES ProblemS tatus: Current Not Available [facility] 1 03:41:39 Family history of breast cancer 257177081 Active 2017 Family history of breast cancer; Progress : Stable Added By: Edi Langston Add to Current Problems : YES ProblemS tatus: Current Family history of malignan t neoplasm of breast; Progress : Stable Added By: Edi Langston Add to Current Problems : YES ProblemS tatus: Current Not Available [facility] 2 09:42:58 Sampling of vagina for Papanico laou smear Active 2018 Encounte r for gynecolo gical examinat ion (general ) (routine ) without abnormal findings ; Progress : Stable Added By: Kylah Cheek Add to Current Problems : YES ProblemS tatus: Current Not Available [facility] 2 09:42:50 Pain of breast 54483336 Active 2019 Mastodyn ia; Progress : Stable Added By: Rona Barksdale Add to Current Problems : YES ProblemS tatus: Current Not Available [facility] 2 09:43:12 Disorder associat ed with menstrua tion AND/OR menopaus e 451733588 Completed 201707/18/2017 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 ; Progress : Stable Added By: Rosina Oates Add to Current Problems : NO ProblemS tatus: Resolve Not Available [facility] 2 09:43:20 Family history of malignan t neoplasm of breast in first degree relative 297204547 Active 2017 Family history of breast cancer; Location : None Severity : Moderate Progress : Stable Added By: Edi Langston Add to Current Problems : NO ProblemS tatus: Current Not Available [facility] 1 03:41:50 Family history of malignan t neoplasm of ovary 489222170 Active 2017 Family history of malignan t neoplasm of ovary; Progress : Stable Added By: Promise Dalal Add to Current Problems : YES ProblemS tatus: Current Not Available [facility] 2 09:43:20 Breast composit ion 007004059 Active 2018 Inconclu sive mammogra m; Progress : Stable Added By: Belkis Bo Add to Current Problems : YES ProblemS tatus: Current Not Available [facility] 2 09:42:50 Leukorrh ea 034105106 Completed 201210/26/2013 Vaginal Discharg e; Location : None Progress : Stable Added By: Basim Nogueira Add to Current Problems : NO ProblemS tatus: Resolve Not Available [facility] 2 09:42:58 Abnormal findings on diagnost ic imaging of breast 113692307 Active 2017 Other (abnorma l) findings on radiolog ical examinat ion of breast; Location : None Progress : Stable Added By: Dominga Wallis Add to Current Problems : YES ProblemS tatus: Current Not Available [facility] 2 09:43:20 Menopaus al symptom 09313126 Completed 201707/18/2017 Menopaus al symptoms ; Progress : Stable Added By: Rosina Oates Add to Current Problems : NO ProblemS tatus: Resolve Not Available [facility] 2 09:42:50 Hormone replacem ent therapy Active 2018 Hormone Replacem ent Therapy; Progress : Stable Added By: Arcelia Reed Add to Current Problems : YES ProblemS tatus: Current; Start Date : 01/03/20 18 Hormo ne replacem ent therapy; Progress : Stable Added By: Arcelia Reed Add to Current Problems : YES ProblemS tatus: Current Not Available [facility] 2 09:42:58 Screenin g mammogra phy Active 2019 Screenin g mammogra m - other; Location : None Progress : Stable Added By: Sea Reynolds Add to Current Problems : NO ProblemS tatus: Resolve; Start Date : 05/10/19 15 Encou nter for screenin g mammogra m for malignan t neoplasm of breast; Progress : Stable Added By: Kylah Cheek Add to Current Problems : YES ProblemS tatus: Current Screenin g mammogra m - other; Location : None Progress : Stable Added By: Basim Nogueira Add to Current Problems : YES ProblemS tatus: Resolve; Start Date : 04/09/19 16 Not Available [facility] 2 09:43:06 Notes:Possible STD exposure (V15.85) ; OnsetDate: 01/24/2013; Location: None Severity: Moderate Progress: Stable Added By: Latricia Padgett Add to Current Problems: NO ProblemStatus: Current Family history of ovarian cancer (V16.41) ; OnsetDate: 05/21/2017; Progress: Stable Added By: Promise Dalal Add to Current Problems: YES ProblemStatus: Current Possible STD exposure (V15.85) ; OnsetDate: 01/24/2013; Progress: Stable Added By: Latricia Padgett Add to Current Problems: YES ProblemStatus: Current Problem Notes None recorded. Procedures Surgical History Date Name Laterality Status Provider Name and Address Organization Details Recorded Time 02/04/20 24 Most Recent Mammogram completed Consuelo U[facility] 05/17/2024 10:20:03 06/17/19 22 Date of Last Pap Smear completed ROBERTO MAXWELL NP [address] [facility], [place], [address], [employer] IV 05/17/2024 10:34:21 section completed [facility] 06/15/2021 23:28:31 ligation of bilateral fallopian tubes completed Lucy [employer] [facility] 06/15/2021 23:28:42 Hysteroscopy ablation completed Lucy [email or web address] 06/15/2021 23:30:53 Imaging Results None recorded. Procedure Notes None recorded. Medical Equipment None Reported. Allergies Allergen ID Allergen Name Allergen Category Reaction Reaction Severity Criticality Documentation Date Start Date Code Code System Note Provider Name and Address Organization Details Recorded Time 290027 Product containin g penicilli n (product) medicatio n Not available Not available Not available 12/06/20202015 42572 8001 SNOMED Sever ity: Moder ate; Not Available [facility] 01:07:11 Medications Name Sig Start Date Stop Date Status Note LastModified by Organization Details LastModified Time compounde d medicatio n active Not Available Not Available Not Available compounde d medicatio n active Not Available Not Available Not Available prednison e 10 mg tablet TAKE 3 TABLETS BY MOUTH DAILY FOR 3 DAYS THEN TAKE 2 TABLETS BY MOUTH DAILY FOR 3 DAYS THEN TAKE 1 TABLET BY MOUTH DAILY WITH FOOD FOR 3 DAYS 06/16 completed Not Available Not Available Not Available doxycycli ne hyclate 100 mg capsule TAKE 1 CAPSULE BY MOUTH TWICE DAILY 05/17 completed Not Available Not Available Not Available trazodone 50 mg tablet 12/29 completed Trazodon e HCl Allow Substitu tion: True Refill Denied: No Refill DateOccu rred: 05/13/19 17 Not Available Not Available Not Available CombiPatc h 0.05 mg-0.14 mg/24 hr transderm al Apply 1 patch(es ) to lower abdomen 2 times weekly 05/15 completed Combipat ch 0.05mg/0 .14mg Transder mal Patch RxNorm: [id number] Allow Substitu tion: True Refill Denied: No Not Available Not Available Not Available Lidocaine Viscous 2 % mucosal solution RINSE AND GARGLE 15 ML BY MOUTH EVERY 6 HOURS NEEDED FOR PAIN 05/17 completed Not Available Not Available Not Available fluconazo le 150 mg tablet TAKE 1 TABLET BY MOUTH TODAY. MAY REPEAT 1 TABLET IN 72 HOURS IF NEEDED 05/17 completed Not Available Not Available Not Available valacyclo vir 1 gram tablet TAKE 1 TABLET BY MOUTH EVERY DAY NEEDED 05/17 completed Not Available Not Available Not Available minocycli ne 100 mg capsule TAKE 1 CAPSULE BY MOUTH DAILY 06/16 completed Not Available Not Available Not Available meloxicam 15 mg tablet TAKE 1 TABLET BY MOUTH DAILY NEEDED PAIN AND INFLAMMA TION 06/16 completed Not Available Not Available Not Available Prometriu m 100 mg capsule Take 1 PO daily qhs 05/15 completed Prometri um 100mg Capsules RxNorm: [id number] Allow Substitu tion: True Refill Denied: No Not Available Not Available Not Available sertralin e 100 mg tablet active Not Available Not Available Not Available valacyclo vir 500 mg tablet TAKE 1 TABLET BY MOUTH TWICE DAILY active Not Available Not Available No t Available peg-elect rolyte solution 420 gram oral solution TAKE DIRECTED BY OFFICE 05/17 completed Not Available Not Available Not Available doxycycli ne monohydra te 100 mg tablet TAKE 1 TABLET BY MOUTH TWICE DAILY FOR 10 DAYS 06/16 completed Not Available Not Available Not Available amoxicill in 875 mg tablet TAKE 1 TABLET BY MOUTH EVERY 12 HOURS 05/17 completed Not Available Not Available Not Available lorazepam 0.5 mg tablet TAKE 1 TABLET BY MOUTH TWICE A DAY NEEDED 06/16 completed Not Available Not Available Not Available trazodone 100 mg tablet 12/29 completed Trazodon e HCl Allow Substitu tion: True Refill Denied: No Refill DateOccu rred: 05/13/19 17 Not Available Not Available Not Available Synthroid 25 mcg tablet 06/16 completed Synthroi d 25 mcg oral tablet RxNorm: [id number] Allow Substitu tion: True Refill Denied: No Refill DateOccu rred: 01/25/20 13 Edited by: Lenore Crespo ) on 01/22/20 20 Stopped by: Lenore Crespo ) on Not Available Not Available Not Available benzonata te 100 mg capsule TAKE 1 CAPSULE BY MOUTH THREE TIMES DAILY 05/17 completed Not Available Not Available Not Available cephalexi n 500 mg capsule TAKE 1 CAPSULE BY MOUTH TWICE DAILY FOR 7 DAYS 05/17 completed Not Available Not Available Not Available pantopraz ole 40 mg tablet,de layed release active Not Available Not Available Not Available cyanocoba ted (vit B-12) 1,000 mcg/mL injection solution INJECT 1ML INTO THE MUSCLE EVERY MONTH active Not Available Not Available No t Available trazodone 150 mg tablet 12/29 completed Trazodon e HCl Allow Substitu tion: True Refill Denied: No Refill DateOccu rred: 05/13/19 17 Not Available Not Available Not Available levothyro xine 125 mcg tablet active Not Available Not Available Not Available triamcino lone acetonide 0.1 % topical ointment 05/17 completed Not Available Not Available Not Available Synthroid 88 mcg tablet TAKE 1 TABLET BY MOUTH EVERY DAY 05/17 completed Not Available Not Available Not Available promethaz ine 25 mg tablet TAKE 1/2 TABLET BY MOUTH EVERY 6 HOURS NEEDED 05/17 completed Not Available Not Available Not Available BD Safety-Lo k Tuberculi n 1 mL 25 gauge x 5/8 syringe USE FOR B12 active Not Available Not Available No t Available Vivelle-D ot 0.05 mg/24 hr transderm al patch Apply 1 patch(es ) to hairless area on upper arms 2 times weekly 05/21 completed Vivelle- Dot 0.05mg Transder mal Patch RxNorm: [id number] Allow Substitu tion: True Refill Denied: No Not Available Not Available Not Available mupirocin 2 % topical ointment APPLY TOPICALL Y TO THE AFFECTED AREA TWICE DAILY FOR 7 DAYS 05/17 completed Not Available Not Available Not Available BD Tuberculi n Syringe 1 mL 25 gauge x 5/8 USE ONCE MONTHLY DIRECTED active Not Available Not Available No t Available ibuprofen 600 mg tablet TAKE 1 TABLET BY MOUTH EVERY 6 HOURS NEEDED 05/17 completed Not Available Not Available Not Available hydroxyzi ne HCl 10 mg tablet TAKE 1 TABLET BY MOUTH TWICE DAILY NEEDED. MAY TAKE ONLY NIGHTLY IF NEEDED 05/17 completed Not Available Not Available Not Available Estrace 1 mg tablet Take 1 tablet(s ) by mouth daily 05/19 completed Estrace 1mg Tablet RxNorm: [id number] Allow Substitu tion: True Refill Denied: No Not Available Not Available Not Available bupropion HCl XL 300 mg 24 hr tablet, extended release TAKE 1 TABLET BY MOUTH EVERY MORNING. START AFTER FINISHED WITH 150MG 05/17 completed Not Available Not Available Not Available bupropion HCl XL 150 mg 24 hr tablet, extended release TAKE 1 TABLET BY MOUTH EVERY MORNING FOR 14 DAYS 06/16 completed Not Available Not Available Not Available duloxetin e 30 mg capsule,d elayed release TAKE 1 CAPSULE BY MOUTH EVERY DAY IN THE MORNING FOR 7 DAYS 06/16 completed Not Available Not Available Not Available duloxetin e 60 mg capsule,d elayed release TAKE 1 CAPSULE BY MOUTH EVERY DAY IN THE MORNING. START MED AFTER COMPLETI NG 7 DAYS OF 30 MG CAPSULES 06/16 completed Not Available Not Available Not Available BD Integra Syringe 3 mL 25 gauge x 5/8 USE 1 SYRINGE TO INJECT BEFORE-1 2 ONCE A MONTH active Not Available Not Available No t Available levothyro xine 05/17 completed Not Available Not Available Not Available spironola ctone 05/17 completed Spironol actone Allow Substitu tion: True Refill Denied: No Refill DateOccu rred: 02/22/19 16 Edited by: Rona Gunderson ) on 02/27/19 20 Stopped by: Rona Gunderson ) on Not Available Not Available Not Available Prometriu m Take 1 PO daily qhs 05/19 completed Prometri um 100mg Capsules RxNorm: [id number] Allow Substitu tion: True Refill Denied: No Not Available Not Available Not Available Ambien 05/12 completed Ambien 10mg Tablet RxNorm: [id number] Allow Substitu tion: True Refill Denied: No Refill DateOccu rred: 01/25/20 13 Not Available Not Available Not Available Contrave 8 mg-90 mg tablet,ex tended release TAKE 2 TABLETS BY MOUTH TWICE DAILY. MAKE AN APPOINTM ENT 05/17 completed Not Available Not Available Not Available Katelynn [employer] 05/17 completed Not Available Not Available Not Available Sutab 1.479-0.1 88-0.225 gram tablet TAKE BY MOUTH DIRECTED BY OFFICE INSTRUCT IONS 05/17 completed Not Available Not Available Not Available Vitals Date Recorded Body height Body mass index (BMI) Body weight Systolic And Diastolic Provider Name and Address Organization Details Last Updated DateTime 05/17/2024 160.02 cm 23.4 kg/m2 39566.19 g 120/74 mm[Hg] Consuelo Dong [facility] [employer] IV 05/17/2024 10:22:40 Date Recorded Body height Body mass index (BMI) Body weight Systolic And Diastolic Provider Name and Address Organization Details Last Updated DateTime 06/16/2021 162.56 cm 22.3 kg/m2 48282.01 g 138/82 mm[Hg] Brianna Feng [facility] [employer] IV 06/16/2021 14:24:08 Social History Question Answer Notes LastModified by Organizat ion Details LastModified Time Tobacco Smoking Status Never Smoker Brianna Feng [place] [employer] IV 06/16/2021 14:29:56 If You Are , What Was Your Level Of Alcohol Consumption Prior To ? None Information not available 05/17/2024 Are You Blind Or Do You Have Difficulty Seeing? No [email or web address] Information not available 05/17/2024 Are You Deaf Or Do You Have Serious Difficulty Hearing? No [email or web address] Information not available 05/17/2024 What Type Of Diet Are You Following? REGULAR Information not available 06/16/2021 What Is The Highest Grade Or Level Of School You Have Completed Or The Highest Degree You Have Received? [id number] Information not available 05/17/2024 How Many Children Do You Have? 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 Information not available 06/16/2021 Are You Sexually Active? Yes Information not available 06/16/2021 Sex: Unknown Functional Status Question Answer Note LastModified by Organizat ion Details LastModified Time How many times per week do you consume alcohol? 1-2 times per week Information not available 06/16/2021 Do you or have you ever used any other forms of tobacco or nicotine? No Information not available 06/16/2021 What is your level of alcohol consumption? Occasional Information not available 06/16/2021 Are you currently employed? Yes [email or web address] Information not available 05/17/2024 Do you or have you ever used e-cigarettes or vape? Never used electronic cigarettes [email or web address] Information not available 05/17/2024 What is your exercise level? Occasional Information not available 06/16/2021 Mental Status None recorded. Family History Relationship Description Onset Age of this Age Resolved Age Notes LastModified by Organization Details LastModified Time Paternal Aunt Malignant tumor of breast [email or web address] Not available 05/17 10:18:14 Paternal Grandmother Malignant tumor of breast [email or web address] Not available 02/2021 23:28:02 Medical History Condition Response Hypothyroidism Y Gynecological History Statement/Question Response If Post Menopausal, Age at Menopause 45 Date of Last Colonoscopy Date of last HPV 06/16/2021 Date of LMP Most Recent Bone Density Date of Last Pap Smear 06/16/2021 Most Recent Mammogram 02/04/2024 Current Control Method None Age at Menarche 14 Obstetrics History GPAL:G 2 P 2 0 0 2 Type Value Full Term 2 Living 2 Total 2 Past Encounters Encounter ID Performer Location Encounter Start Date Encounter Closed Date Diagnosis/Indication Diagnosis SNOMED-CT Code Diagnosis ICD10 Code Diagnosis Note [id number] URIAHFACUNDO BRONSON CNM [facility] [address] [place] [address] 06/16/2021 14:11:09 06/16/2021 15:32:32 Gynecologic examination 83074779 Z01.419 50 y.o. here for annual exam. - Pap up to date from, discussed natural course of HPV infection, no new exposures. Plan to repeat cotesting in years. - Routine labs done with PCP - Mammo last year WNL, discussed different guideline recommenda timandy, pt without family hx, would like to proceed with q2yr screening, repeat next year // rx provided - Colonoscop y done, can continue q10 years screens - DEXA at age 65 - Depression screen POS but patient declining tx. No SIHI risk. - BMI counseling , diet and exercise reviewed-P atient seeing PCP tomorrow for psoriasis. Will be requesting clobetasol and referral to Prash[facility] vulvar at that appt- RTO for annual or PRN Screening for malignant neoplasm of cervix 894207082 Z12.4 Screening for malignant neoplasm of breast 239358161 Z12.39 Screening for cardiovascular system disease 165176696 Z13.6 Diabetes m ellitus screening 775692348 Z13.1 Depression screening 171 545310 Z13.31 Patient is not seeing someone for depression and her sibling is a psychiatri st. She declines interventi on at this time and feels this is related to her father's passing. She feels that this is beginning to resolve. She is planning on stopping her wellbutrin . Menopausal symptom 80453 002 N95.1 [id number] ROBERTO MAXWELL NP [facility] [address] [place] [address] 05/17/2024 10:18:05 05/17/2024 15:03:37 Gynecologic examination [id number] Z01.419 53 y.o. here for annual exam. - Pap requested due to current evaluation with oncology , discussed natural course of HPV infection, no new exposures. Plan to repeat cotesting in years. - Routine labs done with PCP - Mammo last year WNL, discussed different guideline recommenda timandy, pt without family hx, would like to proceed with q2yr screening, repeat next year // rx provided - Colonoscop y done, can continue q10 years screens - DEXA at age 65 - Depression screen NEG - BMI counseling , diet and exercise reviewed - RTO for annual or PRN Screening for malignant neoplasm of cervix [id number] Z12.4 ASCCP guidelines reviewed with patient. Pap Hx: pap collected today. Pt states understand ing and is amenable to POC. Screening for malignant neoplasm of breast 592704999 Z12.31 Pt educated on breast cancer screening guidelines , and discussed recommenda tion for scheduling imaging at hospital of her choice. Reviewed recommenda tion to have imaging done at same facility if possible as previous screenings . Pt states understand ing of POC. Patient with skin flaking and crusting on bilateral nipples. patient reports that she typically has a rash down he flank on the right side. She is under the care of an oncologist that has referred her to the [facility].pat jodient advised today that she should also be seen by an kaiawhina as her skin appears to be intermitte ntly reactive. Depression screening 171 158609 Z13.31 refer to intake screening Health Concerns Section Related Observation LastModified by Organization Detai ls LastModified Time None Recorded Concern Status LastModified by Organization Details LastModified Time None Recorded Advance Directives Directive None Recorded Payers Insurance Date Sequence Insurance Name Policy Number Policy Bustillo Covered Member ID Bustillo Member ID Guarantor Name 05/17/2024 1 [employer] [id number] Pauline Rodriges [id number] Paulinecassandra Gtzton 05/17/2024 1 [employer] [id number] Pauline Rodriges [id number] Pauline Rodriges Notes Date Note Type Note Provider Name and Address Organization Details Recorded Time 06/16/2021 text/html Annual GYNReport ed bypatient.History: no gynecologic complaints; no change in interval history Menstrual cycle:Normal menses Urinary symptoms:No hematuria; No incontinence Vulva:No genital lesion Vagina:Normal vaginal discharge Breast:No breast pain; No breast lump; No nipple discharge Current Contraception:Abla tion Sexual complaints:No sexual complaints; No pain during intercourse; Normal libido Menopausal Symptoms:No menopausal symptoms; Normal vaginal lubrication Psychological symptoms:No depression; No anxiety; No PMDD URIAH BRONSON CNM [address] [facility], [place], [address], [facility] [place] [employer] 06/16/2021 15:24:14 05/17/2024 text/html Pauline presents [employer]. Last pap:02-19-2022. LMP: None. Pt had an Ablation.Last mammogram: 02-04-2024. Last colon cancer screening: Never. Pt voices no other concerns. Phq is 12 ROBERTO MAXWELL NP [address] [place], [address], [facility] 05/17/2024 14:57:39 OBGyn Episode No OBEpisode recorded.
--- OUTSIDE RECORDS SUMMARY | 2024-08-20 06:45 | XMS_ITS | Clinical Summary ---
Author Organization [facility] Address [facility] [place] [address] Care Team Providers Care Central Sterile Supply Technician Name Role Phone Justa Rene NP Primary Care Provider [phone] [phone] Allergies Active Allergy Reactions Criticality Noted Date Comments Penicillins Unknown 02/22/2015 Patient prefers not to take causes severe yeast infections Medications NON FORMULARY Hormone replacement pellets q 4 months Active valACYclovir (VALTREX) 1 g tabletIndicatio ns:Recurrent cold sores take 1 tablet by mouth every day as needed 90 tablet 1 4 Active SYRINGE-NEEDLE, DISP, 3 ML (BD ECLIPSE SYRINGE/NEEDLE) 25G X 5/8 3 ML MiscIndications :B12 deficiency Use one syringe monthly with Vitamin B-12 3 each 3 4 Active sertraline (ZOLOFT) 100 MG tabletIndicatio ns:Anxiety and depression Take 1 tablet (100 mg total) by mouth daily. 90 tablet 3 4 Active Additional Information Patient taking differently: 50 mgOral Daily, Reported on 05/30/2024 cyanocobalamin (B-12) 1000 MCG/ML injectionIndica tions:B12 deficiency Inject 1 mL (1,000 mcg total) into the muscle every 30 (thirty) days. 3 mL 3 5 Active levothyroxine (SYNTHROID) 125 MCG tabletIndicatio ns:Hypothyroidi sm, unspecified type Take 1 tablet (125 mcg total) by mouth daily. 90 tablet 5 Active pantoprazole EC (PROTONIX) 40 MG tabletIndicatio ns:Gastroesopha geal reflux disease, unspecified whether esophagitis present Take 1 tablet (40 mg total) by mouth daily. 90 tablet 1 5 Active topiramate (TOPAMAX) 50 MG TabIndications: Sleep related eating disorder Take 1 tablet (50 mg total) by mouth daily. 90 tablet 1 5 Active TRIAMCINOLONE ACETONIDE, TOP, 0.05 % OintmentIndicat ions:Breast infection Apply to the affected area bid, prn 15 g 5 Active cephALEXin (KEFLEX) 500 MG capsuleIndicati ons:Breast infection Take 1 capsule (500 mg total) by mouth 2 (two) times daily for 10 days. 20 capsule 5 07/25/19 25 Active Problems Problem Noted Date Diagnosed Date Hypercholesterolemia 06/01/2024 Overview (06/01/2024): No longer on statin due to concerns side effects she had read up on with use. Pt does have strong family hx of CAD. Pt had a CT calcium score 07/23/23 that noted 429 Extensive plaque, high risk, high likelihood of significant stenosis (>50%). Follows with cardiology as well. Next apt is in August. Assessment & Plan (06/01/2024 7:24 AM CDT): Encourage following a healthy well balance diet. Limit saturated and trans fats. Encourage to get plenty of lean meats in your diet and grilled fish. Recommend eating at least 2 servings of fruits and vegetables per day. Encourage to limit sugar, processed foods, and large amount of carbohydrates. Consider non statin option. Will discuss further with cardiology at next visit. Gastroesophageal reflux disease without esophagi tis 06/01/2024 Overview (06/01/2024): Chronic condition. Taking pantoprazole. Seeing GI and has an EGD coming up as well. Assessment & Plan (06/01/2024 7:27 AM CDT): Resume PPI at this time. Having EGD in near future. Axillary lymphadenopathy 06/01/2024 Overview (06/01/2024): US of axillary lymph nodes noted Bilateral axillary lymph nodes with thickened cortices. Has a biopsy of her lymph nodes on June 22 with [facility]. Assessment & Plan (06/01/2024 8:01 AM CDT): Pt to keep me updated on her lymh node biopsy results. Will be having done at [facility]. Coronary artery disease due to lipid rich plaque 06/01/2024 Overview (06/01/2024): Pt had a CT calcium score 07/23/23 that noted 429 Extensive plaque, high risk, high likelihood of significant stenosis (>50%). Follows with cardiology as well. Next apt is in August. Strong family hx of CAD. Father passed from a heart attack. Assessment & Plan (06/01/2024 7:39 AM CDT): Encourage following a healthy well balance diet. Limit saturated and trans fats. Encourage to get plenty of lean meats in your diet and grilled fish. Recommend eating at least 2 servings of fruits and vegetables per day. Encourage to limit sugar, processed foods, and large amount of carbohydrates. Seeing cardio next in August. Breast infection 06/01/2024 Overview (06/01/2024): Has had a chronic rash around right nipple. Has been applying which shaw. Steroid and other creams cause it to burn. Will ooze, crack. Hurts to wear a bra.She follows closely with derm for her psoriasis and lichen sclerosis Pt is concerned it is infected. Pt has thought her symptoms are due to paget's disease but supposedly it has been ruled out. Assessment & Plan (06/01/2024 8:03 AM CDT): Will sent pt in keflex and bactroban ointment. Recommend an barrier cream to as well. Encourage to follow up with derm if her symptoms don't improve/worsen. D/t this rash pt has had concerns of inflammatory breast cancer.. Her mammogram and US's are up to date and have been negative. Pt's mammogram in January noted dense breast tissue and since rash is still present with discharge would consider breast MRI. Pt will be seeing [facility] as well in very near future who are our breast specialists to informed pt can discuss with them as well what they suggest. Deferred breast MRI order at this from me. She was accepted to [facility] so she will defer testing to them. Sleep related eating disorder 06/01/2024 Overview (06/01/2024): Takes topamax for this. Has been helpful. Assessment & Plan (06/01/2024 7:59 AM CDT): Resume topamax. Screen for colon cancer 06/01/2024 Overview (06/01/2024): Recently had a colonoscopy but was not cleansed out so pt is going back to have done and having an EGD as well. Assessment & Plan (06/01/2024 8:11 AM CDT): Continue to follow up with GI as directed. Following back up for EGD/colonosocpy Anxiety and depression 01/06/2022 Overview (06/01/2024): Taking sertraline 50mg daily and tolerating well. Uses Topamax as well for appetite suppression for increase stress. Assessment & Plan (06/01/2024 7:19 AM CDT): Chronic condition, controlled. No changes needed at this time. B12 deficiency 01/06/2022 Overview (06/01/2024): On replacement. Assessment & Plan (06/01/2024 7:24 AM CDT): Continue B12 injections. Recurrent cold sores 01/06/2022 Overview (06/01/2024): Taking valtrex as needed. Assessment & Plan (06/01/2024 7:20 AM CDT): Resume valtrex as needed. Lichen sclerosus 01/06/2022 Overview (06/01/2024): Follows with dermatology. Has tried and failed multiple medications. Symptoms affecting her axillary region and vaginal region. Also has been having a rash around her right breast. Her tool grinder operator external and hem/onc are working on getting pt accepted to [facility] for another opinion on treatment options. Assessment & Plan (06/01/2024 7:18 AM CDT): Continue to follow up with derm as directed. Pt to keep me updated on her care. Menopausal syndrome (hot flashes) 01/06/2022 Overview (06/01/2024): On menopausal HRT through pellet therapy. She is seeing a new hormone specialist now. Assessment & Plan (06/01/2024 7:19 AM CDT): Continue to follow with hormone specialist closely. Psoriasis 01/06/2022 Overview (06/01/2024): Following with dermatology. Working on getting seen at [facility] since her symptoms have not been controlled with multiple rounds of medications that have been tried by dermatology. Assessment & Plan (06/01/2024 7:17 AM CDT): Continue to follow up with derm as directed. Pt to keep me updated on her care. Hypothyroidism 04/09/2015 Overview (06/01/2024): On thyroid replacement. Last TSH check her thyroid was overactive. Will recheck today. Assessment & Plan (06/01/2024 7:18 AM CDT): Rechecking TSH today. Resolved Problems Problem Noted Date Diagnosed Date Resolved Date Hypertension, unspecified type 01/06/2022 06/01/2024 Recurrent UTI 01/06/2022 06/01/2024 Encounters Date Type Department Care Team Description 07/30/2024 Scan [employer] INFO SRVCS Scanned, Doc Med Group 07/14/2024 Telephone [facility] Medical Group Family Medicine - [place] [address] [place] [address] Justa Rene NP Medication Request 07/03/2024 Orders Only [place] [address] [place] [address] Justa Rene NP 05/31/2024 Results Follow-Up [address] [place] [address] Justa Rene NP TSH W/REFLEX 05/30/2024 2:20 PM CDT Office Visit [address] [place] [address] Justa Rene NP Physical (Rash on right nipple.) 05/30/[address] [place] [address] Justa Rene NP Error 05/30/2024 Travel 05/24/2024 Scan [employer] SRVCS Scanned, Doc Med Group from Last 3 Months Immunizations Immunization Administration Dates Next Due Hepatitis B Vac Recomb Adj 20 Mcg/0.5ml Im Sosy 05/28/2023 Influenza (Generic) 11/28/2015 Influenza Adult (Generic) 11/19/2017 Pneumococcal (Prevnar 20) 02/20/2022 Shingrix 05/08/2022,02/20/2022 Family History Medical History Relation Comments CABG Father Cancer Father Skin cancer Early Father Heart Heart Disease Father AR Father Stent Cardiac Father Valve Disease Father CABG Maternal Grandfather AR Maternal Grandfather Stent Cardiac Maternal Grandfather Stroke Maternal Grandfather Valve Disease Maternal Grandfather Stent Cardiac Maternal Grandmother Stroke Maternal Grandmother Asthma Mother Hypertension Mother Kidney Disease Mother Rheumatoid Arthritis Mother Stent Cardiac Mother Breast Cancer Other Breast Cancer Paternal Aunt 1 Breast Cancer Paternal Aunt 2 CABG Paternal Grandfather AR Paternal Grandfather Stent Cardiac Paternal Grandfather Stroke Paternal Grandfather Valve Disease Paternal Grandfather Breast Cancer Paternal Grandmother Relation Status Comments Father Maternal Grandfather Maternal Grandmother Mother Other Alive paternal great g randmother Paternal Aunt 1 Alive Paternal Aunt 2 Alive Paternal Grandfather Paternal Grandmother Social History Tobacco Use Types Packs/Day Years Used Date Smoking Tobacco: Former Cigarettes 0.3 3 0 02/15/1994 - 02/15/1997 Passive Smoke Exposure: Never Smokeless Tobacco: Never Tobacco Cessation:Counseling Given: No Alcohol Use Standard Drinks/Week Comments Yes 0 (1 standard drink = 0.6 oz pur e alcohol) A drink every other month PHQ-2 Answer Date Recorded Patient Health Questionnaire-2 Score 2 05/30/2024 Comments No Sex and Gender Information Value Date Recorded Sex Assigned at Female 04/26/2024 8:09 AM CDT Legal Sex Female 5:13 PM CDT Gender Identity Female 05/30/2024 2:26 PM CDT Sexual Orientation Straight 05/30/2024 2: 26 PM CDT Last Filed Vital Signs Vital Sign Reading Time Taken Comments Blood Pressure 113/72 05/30/2024 2:26 PM CDT Pulse 81 05/30/2024 2:26 PM CDT Temperature 36.8 C (98.2 F) 05/30/2024 2:26 PM CDT Respiratory Rate 18 05/30/2024 2:26 PM CDT Oxygen Saturation 100% 05/30/2024 2:26 PM CDT Inhaled Oxygen Concentration - - Weight 58.3 kg (128 lb 9.6 oz) 05/30/2024 2:26 P M CDT Height 162.6 cm (5' 4) 05/30/2024 2:26 PM CDT Body Mass Index 22.07 05/30/2024 2:26 PM CDT Plan of Treatment Upcoming Encounters Date Type Department Care Team (Late st Contact Info) Description 08/30/2024 11:30 AM CDT Office Visit [facility] [place], [place] [address] Patric Mijares MD Three [facility]. [address] [place], [place] [id number] Lucy Paez FNP 3 [facility] [address] [place], [place] [id number] Health Maintenance Due Date Last Done Comments ASCVD Statin 1970 Cervical Cancer Screening Pa p Smear (Age 30 to 64) Every 3 Years 1970 Colorectal Cancer Screening Colonoscopy (10 Years) 1970 DTaP, Tdap and Td Vaccines ( 1 - Tdap) 1989 Hepatitis B Vaccines (2 of 2 - CpG 2-dose series) 06/25/2023 05/28/2023 COVID-19 Vaccine (3 - 2023-2 5 season) 2023 07/08/2021, 07/30/2020 ASCVD LDL 05/24/2024 05/25/2023, 01/05/2022 Mammogram Screening 01/25/2025 01/26/2024, 04/13/2022 Annual Physical 05/30/2025 05/30/2024, 05/25/2023, 01/05/2022 Cervical Cancer Screening Pa p with HPV Testing (Age 30 to 64) Every 5 Years 05/30/2027 05/29/2022 Cervical Cancer Screening wi th HPV 05/30/2027 Hepatitis C Completed 01/06/2022, 01/05/2022 Pneumococcal Vaccine: 50+ Years Completed 02/20/2022 Zoster Vaccines Completed 05/08/2022, 02/20/2022 PHQ-2 (Physician [place]) Completed 05/30/2024 Meningococcal B Vaccine Aged Out No l onger eligible based on patient's age to complete this topic Meningococcal Vaccine Aged Out No aramis uzma eligible based on patient's age to complete this topic RSV Immunizations Under 20 Months Aged Out No longer eligible b ased on patient's age to complete this topic Procedures Procedure Name Priority Date/Time Associated Diagnosis Comments TSH W/REFLEX Routine 05/30/2024 3:07 PM CDT Hypothyroidism, unspecified type MG DIAG W LUPILLO BILAT DIGI YAZMIN 01/26/2024 10:55 AM MARKETING PR INTERN Mass of axillary tail of right breast LIPID PANEL Routine 05/25/2023 11:05 AM CDT Screening for hyperlipidemia OUTSIDE CYTOPATH CERV/VAG INTERPRET (PAP) Routine 05/29/2022 HEPATITIS C ANTIBODY W/RFX TO HCV RNA Routine 01/06/2022 3:01 PM MARKETING PR INTERN from Last 3 Months or Most Recently Relevant to Health Maintenance Results * TSH W/REFLEX (05/30/2024 3:07 PM CDT) TSH 0.732 0.358 - 3.740 uIU/ML 05/30/2024 7:59 PM CDT [facility] 05/30/2024 3:07 PM CDT us Justa Rene CARTON AND CAN SUPPLY SUPERVISOR LABORATORY Final Res ult [facility] [address] [place] [address], [place] [phone] * MG DIAG W LUPILLO BILAT DIGI (01/26/2024 10:55 AM MARKETING PR INTERN) Anatomical Region Laterality Modality Breast Bilateral Mammography 01/26/2024 11:3 6 AM MARKETING PR INTERN Impressions 01/26/2024 11:39 AM MARKETING PR INTERN =====IMPRESSION:===== Stable mammographic appearance with no new findings to suggest malignancy in either breast. ASSESSMENT: ACR BI-RADS 2 - BENIGN FINDING(S) Recommendation: 1: Routine Screening Bilateral COMMENTS: If bloody nipple discharge persists or worsens, repeat exam may be of benefit Ordered By: VERITO SWAIN Interpreted By: Cayla Roman, 01/26/2024 11:36 AM Narrative 01/26/2024 11:39 AM MARKETING PR INTERN [facility] [address] [place] [address] EXAMINATION: Digital bilateral diagnostic mammogram with 3-D tomography. Right breast ultrasound [id number] EXAM DATE/TIME: 01/26/2024 10:32 AM REASON FOR EXAM: right axilla lump Mainly clear nipple discharge with intermittent bloody discharge from the right nipple. Discharge for one month. COMPARISON: 04/06/2019. 04/13/2022 TECHNIQUE: Digital diagnostic mammography of both breasts was performed in addition to 3-D Tomosynthesis technique. This study was read with the assistance of a computer-aided detection system. TISSUE DENSITY: The breasts are heterogeneously dense, which may obscure small masses. Findings: Specifically no distinct abnormality in the right retroareolar region on mammogram or same-day ultrasound. No dilated ducts seen on ultrasound. Marker placed in right axilla with underlying nonpathologic size lymph nodes on same-day ultrasound. Largest lymph node measures 2.9 x 1.1 x 2.0 cm. Cortex is not thickened at 2.8 mm. No new focal asymmetry, dominant mass lesion, area of skin thickening, or cluster of suspicious appearing calcifications in either breast to suggest malignancy. us Verito Swain MD MAMMO Final Re sult * (ABNORMAL) LIPID PANEL (05/25/2023 11:05 AM CDT) CHOLESTEROL 177 <200 MG/DL 05/25/2023 4:24 PM CDT [facility] TRIGLYCERIDES 93 <150 MG/DL 05/25/2023 4:24 PM CDT [facility] HDL 45 >40 MG/DL 05/25/2023 4:24 PM CDT [facility] LDL-C 113(H) <100 MG/DL 05/25/2023 4:24 PM CDT [facility] VLDL CALCULATION 19 5 - 28 MG/DL 05/25/2023 4:24 PM CDT [facility] CHOL/HDL RATIO 3.9 0.0 - 4.0 05/25/2023 4:24 PM CDT [facility] LDL/HDL 2.5(H) 0.41 - 2.13 05/25/2023 4:24 PM CDT [facility] [place] NON HDL CHOLESTEROL 132 <140 MG/DL 05/25/2023 4:24 PM CDT [facility] 05/25/2023 11:0 5 AM CDT Justa Rene [employer] AND CAN SUPPL[employer] SUPERVISOR LABORATORY Final Res ult Performing Organization Address City/[facility] Co de Phone Number [facility] [place] [address] [facility] [place] [address], [place] [phone] * PAP SMEAR WITH HPV (05/29/2022) 05/29/2022 us Doc Med Group Scanned SCANNING Final Resu lt Performing Organization Address [facility] Co de Phone Number [facility] ONBASE * HEPATITIS C ANTIBODY W/RFX TO HCV RNA (01/06/2022 3:01 PM MARKETING PR INTERN) HEPATITIS C AB NON-REACT ROMINA NON-REACT ROMINA [facility] SIGNAL TO CUTOFF 0.75 <1.00 [facility] Comment: HCV antibody was non-reactive. There is no laboratory evidence of HCV infection. In most cases, no further action is required. However, if recent HCV exposure is suspected, a test for HCV RNA (test code 75007) is suggested. For additional information please refer to http://education.Destineer.Meuugame/faq/QZP96c9 (This link is being provided for informational/ educational purposes only.) 01/06/2022 3:01 PM MARKETING PR INTERN 01/06/2022 3:02 PM MARKETING PR INTERN Narrative [facility] - 01/13/2022 1:03 PM MARKETING PR INTERN FASTING:NO FASTING: NO Resulting Agency Comment Performing Organization Information: Site ID: [place] Name: [facility] Address: [address] [address] Director: Ethan Nur D.O., MPH Justa Rene [employer] CAN SUPPL[employer] SUPERVISOR LABORATORY Final Res ult [facility] [address] [place] [address], from Last 3 Months or Most Recently Relevant to Health Maintenance Insurance [facility] Care Teams Central Sterile Supply Technician Relationship Specialty Start Date End Date Justa Rene NP [address] [place] [address] PCP - General NURSE PRACTITIONER 12/25/21
--- OUTSIDE RECORDS SUMMARY | 2024-08-20 06:45 | XMS_ITS | Encounter Summary ---
Author Organization [facility] Address [facility] [place] [address] Care Team Providers Care Food Server Name Role Phone Justa Rene NP Primary Care Provider [phone] Encounter Details Date Type Department Care Team (Late st Contact Info) Description 01/30/2024 Infinity Box Message Enc [facility] Medical Group Family Medicine - [place] [address] [facility] [address] [place] [phone] Justa Rene, KEMAL [address] [place] [address] Send medical records please Social History Tobacco Use Types Packs/Day Years Used Date Smoking Tobacco: Former Cigarettes 0.3 3 0 02/15/1994 - 02/15/1997 Passive Smoke Exposure: Never Smokeless Tobacco: Never Alcohol Use Standard Drinks/Week Comments Yes 0 (1 standard drink = 0.6 oz pur e alcohol) A drink every other month PHQ-2 Answer Date Recorded Patient Health Questionnaire-2 Score 0 01/17/2024 Comments No Sex and Gender Information Value Date Recorded Sex Assigned at Female 04/26/2024 8:09 AM CDT Legal Sex Female 5:13 PM CDT Gender Identity Female 05/30/2024 2:26 PM CDT Sexual Orientation Straight 05/30/2024 2: 26 PM CDT documented as of this encounter Progress Notes * Mireya Barone MA - 01/31/2024 3:47 PM CST Information faxed OR INFORMATION SECURITY ENGINEER * Justa Rene NP - 01/30/2024 11:03 PM CST Mireya, can you please fax pt's last office note from Dr. Barajas to her educational technology coordinator Mohini Cavanaugh please and any other pertinent dermatology notes. Also, I believe pt is canceling her appointment tomorrow but double check please Ofelia? OR INFORMATION SECURITY ENGINEER documented in this encounter Plan of Treatment Upcoming Encounters Date Type Department Care Team (Late st Contact Info) Description 08/30/2024 11:30 AM CDT Office Visit [facility] THREE [facility], [address] [place], [place] [address] Patric Mijares MD Three [facility]. [address] [place], [place] [id number] Lucy Paez FNP [address] [facility] [address] [place], [place] [phone] documented as of this encounter Visit Diagnoses Not on filedocumented in this encounter Additional Health Concerns Assessment Noted Time PHQ-9 Depression Total Score: 14 05/24/ 024 10:12 AM CDT documented as of this encounter Care Teams Food Server Relationship Specialty Start Date End Date Justa Rene NP [address] [place] [address] PCP - General NURSE PRACTITIONER 12/25/21 documented as of this encounter
--- OUTSIDE RECORDS SUMMARY | 2024-08-20 06:45 | XMS_ITS | Patient Health Record ---
Author Organization [facility] Address [address] [place] [address] Care Team Providers Care Physician Pediatrician Name Role Phone Srini GILES, Gilberto Primary Care Provider Unavailab radha GODINEZ MD, BELINDA Unavailable [phone] Love SOMMER, Cynthia Unavailable Unavailable Reason For Referral No Information Plan Of Treatment No Information Insurance Providers Payer Name Payer Address Payer Phone Subscriber Number Group Number Insured Name Patient Relationship to Insured Coverage Start Date Coverage End Date [employer] MED[employer] DUAL [address] [place] [address] [id number] Pauline Rodriges Self - patient is the insured [place] [address] [place], [place] [id number] Pauline Rodriges Self - patient is the insured Medical (General) History Surgical History Surgery Date(Month/Year) delivery (10239):x 2 Appendectomy
--- OUTSIDE RECORDS SUMMARY | 2024-08-20 06:45 | XMS_ITS | Encounter Summary ---
Author Organization [facility] Address [address] [place] [address] Care Team Providers Care Homebirth Midwife Name Role Phone Justa Rene NP Primary Care Provider [phone] [phone] Encounter Details Date Type Department Care Team (Late st Contact Info) Description 01/16/2022 Ingenico Message Enc [facility] Medical Group Family Medicine - [place] [address] [facility] [address] [place] [phone] Justa Rene, KEMAL [address] [place] [address] [place] Social History Tobacco Use Types Packs/Day Years [...] Coronavirus/COVID-19? No / Unsure 01/05/2022 8:53 AM TRAVEL TRAILER COMPONENTS ASSEMBLER documented as of this encounter Plan of Treatment Upcoming Encounters Date Type Department Care Team (Late st Contact Info) Description 08/30/2024 11:30 AM CDT Office Visit [place] [facility] THREE [facility], [address] [place] [address] Patric Mijares MD Three [facility]. [address] [place], [place] [phone] Lucy Paez FNP [address] [facility] [address] [place], [place] [phone] documented as of this encounter Visit Diagnoses Not on filedocumented in this encounter Additional Health Concerns Assessment Noted Time PHQ-9 Depression Total Score: 13 01/05/ 022 10:18 AM TRAVEL TRAILER COMPONENTS ASSEMBLER documented as of this encounter Care Teams Homebirth Midwife Relationship Specialty Start Date End Date Justa Rene NP [address] [place] [address] PCP - General NURSE PRACTITIONER 12/25/21 documented as of this encounter
--- OUTSIDE RECORDS SUMMARY | 2024-08-20 06:45 | XMS_ITS | Encounter Summary ---
Author Organization [facility] Address [address] [place] [address] Phone Care Team Providers Care Impression Printer Name Role Phone Justa Rene APRN, MARYURI Primary Care Provid er Encounter Details Date Type Department Care Team (Late st Contact Info) Description 03/24/2024 Telephone [facility] [address] [phone] Marisol Salazar MD [address] [place] [phone] Social History Tobacco Use Types Packs/Day Years Used Date Smoking Tobacco: Former Cigarettes Smokeless Tobacco: Never Alcohol Use Standard Drinks/Week Comments Yes 0 (1 standard drink = 0.6 oz pur e alcohol) 12 per year Comments Unknown Sex and Gender Information Value Date Recorded Sex Assigned at Not on file Legal Sex Female 9:32 AM PULP PILER Gender Identity Not on file Sexual Orientation Not on file documented as of this encounter Miscellaneous Notes * Telephone Encounter - Anastacia Yun - 03/24/2024 7:58 AM CST Faxed requests to [facility] and [facility] for skin biopsies and path reports. PILER documented in this encounter Plan of Treatment Upcoming Encounters Date Type Department Care Team (Late st Contact Info) Description 11/02/2024 10:15 AM CDT Lab [facility] [address] [phone] Lab, Cc [facility] 11/02/2024 10:30 AM CDT Office Visit [facility] [address] [phone] Marisol Salazar MD [address] [place] [phone] documented as of this encounter Visit Diagnoses Not on filedocumented in this encounter Care Teams Impression Printer Relationship Specialty Start Date End Date Justa Rene, SECTION SUPERVISOR, STORE GROUP MANAGER [address] [place] [address] PCP - General Advanced Practice Nurse 03/17/24 documented as of this encounter
--- NOTE | 2024-08-20 07:22 | PC.NURSE ---
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
--- OUTSIDE RECORDS SUMMARY | 2024-08-20 07:36 | XMS_ITS | Encounter Summary ---
Author Organization [facility] Address [address] [place] [address] Care Team Providers Care Software Testing Specialist Name Role Phone Justa Rene NP Primary Care Provider [phone] Encounter Details Date Type Department Care Team (Late st Contact Info) Description 01/06/2022 BR Supply Message Enc [facility] Family [facility] - [place] [address] [facility] [address] [place] [phone] Justa Rene, KEMAL [address] [place] [address] Short Term Medicine Social History Tobacco Use [...] Coronavirus/COVID-19? No / Unsure 01/05/2022 8:53 AM CHLORINATOR OPERATOR documented as of this encounter Plan of Treatment Upcoming Encounters Date Type Department Care Team (Late st Contact Info) Description 08/30/2024 11:30 AM CDT Office Visit [facility] [address] [facility], [address] [place] [address] Patric Mijares MD Three [facility]. [address] [place], [place] [phone] Lucy Paez FNP [address] [facility] [address] [place], [place] [phone] documented as of this encounter Visit Diagnoses Not on filedocumented in this encounter Additional Health Concerns Assessment Noted Time PHQ-9 Depression Total Score: 13 022 10:18 AM CHLORINATOR OPERATOR documented as of this encounter Care Teams Software Testing Specialist Relationship Specialty Start Date End Date Justa Rene NP [address] [place] [address] PCP - General NURSE PRACTITIONER 12/25/21 documented as of this encounter
--- OUTSIDE RECORDS SUMMARY | 2024-08-20 07:36 | XMS_ITS | Encounter Summary ---
Author Organization [facility] Address [address] [place] [address] Care Team Providers Care Skein Tier Name Role Phone Justa Rene NP Primary Care Provider [phone] Encounter Details Date Type Department Care Team (Late st Contact Info) Description 01/16/2022 SchoolFeed Message Enc [facility] Family Medicine - [place] [address] [facility] [address] [place] [phone] Justa Rene, KEMAL [address] [place] [address] [place] Social History Tobacco Use Types Packs/Day Years [...] Coronavirus/COVID-19? No / Unsure 01/05/2022 8:53 AM WARD ATTENDANT documented as of this encounter Plan of Treatment Upcoming Encounters Date Type Department Care Team (Late st Contact Info) Description 08/30/2024 11:30 AM CDT Office Visit [facility] THREE [facility], [address] [place] [address] Patric Mijares MD Three [facility]. [address] [place], [place] [phone] Lucy Paez FNP 3 [facility] [address] [place], [place] [phone] documented as of this encounter Visit Diagnoses Not on filedocumented in this encounter Additional Health Concerns Assessment Noted Time PHQ-9 Depression Total Score: 13 01/05/ 022 10:18 AM WARD ATTENDANT documented as of this encounter Care Teams Skein Tier Relationship Specialty Start Date End Date Justa Rene NP [address] [place] [address] PCP - General NURSE PRACTITIONER 12/25/21 documented as of this encounter
--- OUTSIDE RECORDS SUMMARY | 2024-08-20 07:36 | XMS_ITS | Clinical Summary ---
Author Organization [facility] Address [facility] [place] [address] Care Team Providers Care Manager Laboratory Name Role Phone Justa Rene NP Primary Care Provider [phone] Allergies Active Allergy Reactions Criticality Noted Date [...] her lymph nodes on June 22 with [facility]. Assessment & Plan (06/01/2024 8:01 AM CDT): Pt to keep me updated on her lymh node biopsy results. Will be having done at [facility]. Coronary artery disease due to [...] consider breast MRI. Pt will be seeing [facility] as well in very near future who are our breast specialists to informed pt can discuss with them as well what they suggest. Deferred breast MRI order at this from me. She was accepted to [place] so she will defer testing to them. [...] a rash around her right breast. Her pig handler and hem/onc are working on getting pt accepted to [facility] for another opinion on treatment options. [...] with dermatology. Working on getting seen at [facility] since her symptoms have not been controlled [...] Type Department Care Team Description 07/30/2024 Scan FromUs INFO SRVCS Scanned, [facility] 07/14/2024 Telephone [facility] Family Medicine - [place] [address] [place] [address] Justa Rene NP Medication Request 07/03/2024 Orders Only [place] [address] [place] [address] Justa Rene NP 05/31/2024 Results Follow-Up [address] [place] [address] Justa Rene NP TSH W/REFLEX 05/30/2024 2:20 PM CDT Office Visit [address] [place] [address] Justa Rene NP Physical (Rash on right nipple.) 05/30/[address] [place] [address] Justa Rene NP Error 05/30/2024 Travel 05/24/2024 Scan APROOFED SRVCS Scanned, [facility] from Last 3 Months Immunizations Immunization Administration Dates Next Due Hepatitis B Vac Recomb Adj 20 Mcg/0.5ml Im Sosy 05/28/2023 Influenza (Generic) 11/28/2015 Influenza Adult (Generic) 11/19/2017 Pneumococcal (Prevnar 20) 02/20/2022 Shingrix 05/08/2022,02/20/2022 Family History Medical History Relation Comments CABG Father Cancer Father Skin cancer Early Father Heart Heart Disease Father OK Father Stent Cardiac Father Valve Disease Father CABG Maternal Grandfather OK Maternal Grandfather Stent Cardiac Maternal Grandfather Stroke Maternal Grandfather Valve Disease Maternal Grandfather Stent Cardiac Maternal Grandmother Stroke Maternal Grandmother Asthma Mother Hypertension Mother Kidney Disease Mother Rheumatoid Arthritis Mother Stent Cardiac Mother Breast Cancer Other Breast Cancer Paternal Aunt 1 Breast Cancer Paternal Aunt 2 CABG Paternal Grandfather OK Paternal Grandfather Stent Cardiac Paternal Grandfather Stroke [...] CDT Office Visit [facility], [address] [place], [place] [address] Patric Mijares MD Three [facility]. [address] [place], [place] [phone] Lucy Paez FNP [facility] [address] [place], [place] [phone] Health Maintenance Due Date Last Done Comments [...] Zoster Vaccines Completed 05/08/2022, 02/20/2022 PHQ-2 (Physician [place]) Completed 05/30/2024 Meningococcal B Vaccine Aged Out [...] LUPILLO BILAT DIGI YAZMIN 01/26/2024 10:55 AM RESERVOIR CARETAKER Mass of axillary tail of right breast LIPID PANEL Routine 05/25/2023 11:05 AM CDT Screening for hyperlipidemia OUTSIDE CYTOPATH CERV/VAG INTERPRET (PAP) Routine 05/29/2022 HEPATITIS C ANTIBODY W/RFX TO HCV RNA Routine 01/06/2022 3:01 PM RESERVOIR CARETAKER from Last 3 Months or Most Recently Relevant to Health Maintenance Results * TSH W/REFLEX (05/30/2024 3:07 PM CDT) TSH 0.732 0.358 - 3.740 uIU/ML 05/30/2024 7:59 PM CDT [facility] 05/30/2024 3:07 PM CDT us Justa Rene VEHICLE ASSEMBLY INSPECTOR LABORATORY Final Res ult [facility] [address] [place] [address], [place] [phone] * MG DIAG W LUPILLO BILAT DIGI (01/26/2024 10:55 AM RESERVOIR CARETAKER) Anatomical Region Laterality Modality Breast Bilateral Mammography 01/26/2024 11:3 6 AM RESERVOIR CARETAKER Impressions 01/26/2024 11:39 AM RESERVOIR CARETAKER =====IMPRESSION:===== Stable mammographic appearance with no new findings to suggest malignancy in either breast. ASSESSMENT: ACR BI-RADS 2 - BENIGN FINDING(S) Recommendation: 1: Routine Screening Bilateral COMMENTS: If bloody nipple discharge persists or worsens, repeat exam may be of benefit Ordered By: VERITO SWAIN Interpreted By: Cayla Roman, 01/26/2024 11:36 AM Narrative 01/26/2024 11:39 AM RESERVOIR CARETAKER [facility] [address] [place] [address] EXAMINATION: Digital bilateral diagnostic mammogram with 3-D tomography. Right breast ultrasound [id number] EXAM DATE/TIME: 01/26/2024 10:32 AM REASON FOR [...] 177 <200 MG/DL 05/25/2023 4:24 PM CDT [facility] TRIGLYCERIDES 93 <150 MG/DL 05/25/2023 4:24 PM CDT [facility] HDL 45 >40 MG/DL 05/25/2023 4:24 PM CDT [facility] LDL-C 113(H) <100 MG/DL 05/25/2023 4:24 PM CDT [facility] VLDL CALCULATION 19 5 - 28 MG/DL 05/25/2023 4:24 PM CDT [facility] CHOL/HDL RATIO 3.9 0.0 - 4.0 05/25/2023 4:24 PM CDT [facility] LDL/HDL 2.5(H) 0.41 - 2.13 05/25/2023 4:24 PM CDT [facility] [place] NON HDL CHOLESTEROL 132 <140 MG/DL 05/25/2023 4:24 PM CDT [facility] 05/25/2023 11:0 5 AM CDT Justa Rene VEHICLE ASSEMBLY INSPECTOR LABORATORY Final Res ult Performing Organization Address City[facility] Co de Phone Number [facility] [place] [address] [facility] [address], [place] [phone] * PAP SMEAR WITH HPV (05/29/2022) 05/29/2022 us Doc [facility] Scanned SCANNING Final Resu lt Performing Organization Address [facility] Co de Phone Number [facility] ONBASE * HEPATITIS C ANTIBODY W/RFX TO HCV RNA (01/06/2022 3:01 PM RESERVOIR CARETAKER) HEPATITIS C AB NON-REACT ROMINA NON-REACT ROMINA [facility] SIGNAL TO CUTOFF 0.75 <1.00 [facility] Comment: HCV antibody was non-reactive. There is no laboratory evidence of HCV infection. In most cases, no further action is required. However, if recent HCV exposure is suspected, a test for HCV RNA (test code 65085) is suggested. For additional information please refer to http://education.911 Pets.SpecialtyCare/faq/RKZ32d3 (This link is being provided for informational/ educational purposes only.) 01/06/2022 3:01 PM RESERVOIR CARETAKER 01/06/2022 3:02 PM RESERVOIR CARETAKER Narrative [facility] - 01/13/2022 1:03 PM RESERVOIR CARETAKER FASTING:NO FASTING: NO Resulting Agency Comment Performing Organization Information: Site ID: [id number] Name: [facility] Address: [address] [address] Director: Ethan Nur D.O., MPH Justa Rene VEHICLE ASSEMBLY INSPECTOR LABORATORY Final Res ult [facility] [address] [place] [address], from Last 3 Months or Most Recently Relevant to Health Maintenance Insurance [facility] Care Teams Manager Laboratory Relationship Specialty Start Date End Date Justa Rene NP [address] [place] [address] PCP - General NURSE PRACTITIONER 12/25/21
--- OUTSIDE RECORDS SUMMARY | 2024-08-20 07:36 | XMS_ITS | Clinical Summary ---
Author Organization [facility] 2 Address [address] [place] [address] Care Team Providers Care Administrative Executive Name Role Phone Justa Rene MD Primary Care Provider [phone]- [phone] Allergies Active Allergy Reactions Criticality Noted Date [...] 18 025 Discontinued(Th erapy completed) AFLURIA QUAD [id number], PF, 60 mcg/0.5 mL syringe ADM 0.5ML [...] - 07/30/2024 12:10 PM CDT Hospital Encounter [place] [address] [address] [place] [address] Salvador Ramos DO Telemaque, MD Coleman Laureano [...] Packs/Day Years Used Date Smoking Tobacco: Never [employer] Answer Date Recorded In the past 12 months has e [employer], gas, oil, or water [employer] threatened to shut off services in [...] How often do you attend chur or episcopalian services? Never 07/28/2024 Do you belong to any clubs o r organizations such as hindu groups, unions, fraternal or athletic groups, or [...] any time in the past [address] [facility], were you homeless or living in a [...] on file Legal Sex Female 8:24 AM [employer] Gender Identity Not on file Sexual Orientation [...] was last reviewed 2020. Testing performed by: [address] [address] Blood 07/30/2024 3:22 AM CDT 07/30/2024 4:05 AM CDT us Ilia Cee MD LAB BLOOD ORDERABLES Fi nal Result [facility] [address] [facility] Department [place] [address] * Differential, auto (07/30/2024 3:22 AM CDT) Neutrophil abs 2.07 1.50 - 6.50 K/cumm Comment:Testing performed by : [address] [address] Imm gran abs 0.01 0.00 - 0.10 K/cumm MONSE Comment:Testing performed by : [address] [address] Lymphocyte abs 1.84 0.80 - 3.30 K/cumm MONSE Comment:Testing performed by : [address] [address] Monocyte abs 0.54 0.20 - 0.80 K/cumm MONSE Comment:Testing performed by : [address] [address] Eosinophil abs 0.20 0.00 - 0.50 K/cumm [facility] Comment:Testing performed by : [address], [place]., [address] Basophil abs 0.05 0.00 - 0.10 K/cumm MONSE Comment:Testing performed by : [address] [address] Neutrophil pct 43.9 % [facility] Comment: Interpretive Data Percent cell count reference ranges are not reported, since discordance with absolute values may lead to misinterpretation of CBC data. Current Interpretive Data was last revised on 2017. Testing performed by: [address] [address] Imm gran pct 0.2 % [facility] Comment: Interpretive Data Percent cell count reference ranges are not reported, since discordance with absolute values may lead to misinterpretation of CBC data. Current Interpretive Data was last revised on 2017. Testing performed by: [address] [address] Lymphocyte pct 39.1 % [facility] Comment: Interpretive Data Percent cell count reference ranges are not reported, since discordance with absolute values may lead to misinterpretation of CBC data. Current Interpretive Data was last revised on 2017. Testing performed by: [address] [address] Monocyte pct 11.5 % [facility] Comment: Interpretive Data Percent cell count reference ranges are not reported, since discordance with absolute values may lead to misinterpretation of CBC data. Current Interpretive Data was last revised on 2017. Testing performed by: [address] [address] Eosinophil pct 4.2 % [facility] Comment: Interpretive Data Percent cell count reference ranges are not reported, since discordance with absolute values may lead to misinterpretation of CBC data. Current Interpretive Data was last revised on 2017. Testing performed by: [address] [address] Basophil pct 1.1 % [facility] Comment: Interpretive Data Percent cell count reference ranges are not reported, since discordance with absolute values may lead to misinterpretation of CBC data. Current Interpretive Data was last revised on 2017. Testing performed by: [address] [address] Blood 07/30/2024 3:22 AM CDT 07/30/2024 4:05 AM CDT us Ilia Cee MD LAB BLOOD ORDERABLES Fi nal Result [facility] Department [place] [address] * CBC with auto differential (07/30/2024 3:22 AM CDT) WBC 4.71 3.80 - 9.90 K/cumm Comment:Testing performed by : [address] [address] Hgb 12.3 11.9 - 15.5 g/dL [facility] Comment:Testing performed by : [address] [address] Hct 37.0 35.6 - 45.5 % [facility] Comment:Testing performed by : [address] [address] Plt 228 150 - 400 K/cumm [facility] Comment:Testing performed by : [address] [address] MPV 10.0 9.1 - 12.3 fL [facility] Comment:Testing performed by : [address] [address] RBC 4.04 3.90 - 5.20 M/cumm [facility] Comment:Testing performed by : [address] [address] MCV 91.6 81.3 - 96.4 fL [facility] Comment:Testing performed by : [address], [address] MCH 30.4 27.1 - 33.3 pg [facility] Comment:Testing performed by : [address] [address] MCHC 33.2 32.3 - 35.7 g/dL [facility] Comment:Testing performed by : [address], [address] RDW CV 13.2 11.1 - 14.9 % [facility] Comment:Testing performed by : [address], [address] RDW SD 44.5 35.7 - 48.1 fL [facility] Comment:Testing performed by : [address], [address] NRBC abs 0.00 0.00 - 0.01 K/cumm MONSE Comment:Testing performed by : [address], [address] Blood 07/30/2024 3:22 AM CDT 07/30/2024 4:05 AM CDT Ilia Cee MD LAB BLOOD ORDERABLES Fi nal Result Performing Organization Address City/[facility] Co de Phone Number [address] [place] [address] * Magnesium (07/30/2024 3:22 AM CDT) Magnesium 1.8 1.4 - 2.5 mg/dL Comment:Testing performed by : [address], [address] Blood 07/30/2024 3:22 AM CDT 07/30/2024 4:05 AM CDT Ilia Cee MD LAB BLOOD ORDERABLES Fi nal Result Performing Organization Address City/[facility] Co de Phone Number [address] [place] [address] * (ABNORMAL) Comprehensive metabolic panel (07/30/2024 3:22 AM CDT) Sodium 139 135 - 145 mmol/L Comment:Testing performed by : [address] [address] Potassium, pl 3.5 3.3 - 4.9 mmol/L MONSE Comment:Testing performed by : [address] [address] Chloride 104 97 - 110 mmol/L MONSE Comment:Testing performed by : [address], [place]., [address] CO2 25 22 - 32 mmol/L MONSE Comment:Testing performed by : [address] [address] Anion gap 10 2 - 15 mmol/L MONSE Comment:Testing performed by : [address] [address] BUN 7 6 - 25 mg/dL MONSE Comment:Testing performed by : [address], [place]., [address] Creatinine 0.68 0.60 - 1.10 mg/dL [facility] Comment:Testing performed by : [address] [address] Glucose 80 70 - 199 mg/dL MONSE [...] was last revised 2022. Testing performed by: [address] [address] Calcium 8.8 8.5 - 10.3 mg/dL MONSE Comment:Testing performed by : [address] [address] Bilirubin, total 0.4 0.1 - 1.2 mg/dL MONSE Comment:Testing performed by : [address] [address] Protein, pl 6.2(L) 6.5 - 8.5 g/dL MONSE Comment:Testing performed by : [address] [address] Albumin 3.7 3.5 - 5.0 g/dL MONSE Comment:Testing performed by : [address] [address] Alk phos 55 40 - 130 Units/L MONSE Comment:Testing performed by : [address] [address] ALT 30 7 - 45 Units/L MONSE Comment:Testing performed by : [address], [address] AST 29 10 - 45 Units/L MONSE Comment:Testing performed by : [address], [address] Blood 07/30/2024 3:22 AM CDT 07/30/2024 4:05 AM CDT Ilia Cee MD LAB BLOOD ORDERABLES Fi nal Result Performing Organization Address [facility] Co de Phone Number [address] of [employer] [facility] [place], [place] [id number] * Vancomycin level trough (07/29/2024 11:01 PM CDT) Pathologist [facility] Vancomycin trough 14.8 10.0 - 20.0 mcg/mL Comment:Testing performed by : [address] [address] Blood 07/29/2024 11:0 1 PM CDT 07/29/2024 11:08 PM CDT Ilia Cee MD LAB BLOOD ORDERABLES Fi nal Result Performing Organization Address City/[facility]/ZIP Co de Phone Number [place] [id number] Department [place] [address] * eGFR (07/29/2024 7:36 AM CDT) eGFR [...] was last reviewed 2020. Testing performed by: [address] [address] Blood 07/29/2024 7:36 AM CDT 07/29/2024 8:06 AM CDT us Ilia Cee MD LAB BLOOD ORDERABLES Fi nal Result [facility] Department [place] [address] * Basic metabolic panel (07/29/2024 7:36 AM CDT) [facility] Sodium 137 135 - 145 mmol/L Comment:Testing performed by : [address] [address] Potassium, pl 3.7 3.3 - 4.9 mmol/L [facility] Comment:Testing performed by : [address] [address] Chloride 104 97 - 110 mmol/L [facility] Comment:Testing performed by : [address] [address] CO2 24 22 - 32 mmol/L MONSE Comment:Testing performed by : [address] [address] Anion gap 9 2 - 15 mmol/L MONSE Comment:Testing performed by : [address] [address] BUN 6 6 - 25 mg/dL MONSE Comment:Testing performed by : [address] [address] Creatinine 0.63 0.60 - 1.10 mg/dL MONSE Comment:Testing performed by : [address] [address] Glucose 78 70 - 199 mg/dL MONSE [...] was last revised 2022. Testing performed by: [address] [address] Calcium 8.8 8.5 - 10.3 mg/dL MONSE Comment:Testing performed by : [address] [address] Blood 07/29/2024 7:36 AM CDT 07/29/2024 8:06 AM CDT us Ilia Cee MD LAB BLOOD ORDERABLES Fi nal Result [facility] [address] [facility] Department of Laboratories [place], [place] [id number] * (ABNORMAL) Vancomycin level trough (07/29/2024 12:10 AM CDT) Vancomycin trough 6.1(L) 10.0 - 20.0 mcg/mL Comment:Testing performed by : [address] [address] Blood 07/29/2024 12:1 0 AM CDT 07/29/2024 12:15 AM CDT Sabrina North INFORMATION SPECIALIST LAB BLOOD ORDERABLES Final R esult Performing Organization Address [facility] Co de Phone Number MONSE [address] [place] [address] * eGFR (07/28/2024 5:38 AM [...] was last reviewed 2020. Testing performed by: [facility], [address] [place] [address]., [address] Blood 07/28/2024 5:38 AM CDT 07/28/2024 6:06 AM CDT Sabrina North INFORMATION SPECIALIST LAB BLOOD ORDERABLES Final R esult Performing Organization Address City/[facility]/ZIP Co de Phone Number MONSE [address] Department [place] [address] * Differential, auto (07/28/2024 5:38 AM CDT) Neutrophil abs 1.53 1.50 - 6.50 K/cumm Comment:Testing performed by : [address] [address] Imm gran abs 0.01 0.00 - 0.10 K/cumm MONSE Comment:Testing performed by : [address] [address] Lymphocyte abs 1.95 0.80 - 3.30 K/cumm MONSE Comment:Testing performed by : [address] [address] Monocyte abs 0.48 0.20 - 0.80 K/cumm MONSE Comment:Testing performed by : [address] [address] Eosinophil abs 0.15 0.00 - 0.50 K/cumm MONSE Comment:Testing performed by : [address] [address] Basophil abs 0.06 0.00 - 0.10 K/cumm MONSE Comment:Testing performed by : [address] [address] Neutrophil pct 36.6 % MON[facility] Comment: Interpretive Data Percent cell count reference ranges are not reported, since discordance with absolute values may lead to misinterpretation of CBC data. Current Interpretive Data was last revised on 2017. Testing performed by: [address] [address] Imm gran pct 0.2 % MON[facility] Comment: Interpretive Data Percent cell count reference ranges are not reported, since discordance with absolute values may lead to misinterpretation of CBC data. Current Interpretive Data was last revised on 2017. Testing performed by: [address] [address] Lymphocyte pct 46.7 % MON[facility] Comment: Interpretive Data Percent cell count reference ranges are not reported, since discordance with absolute values may lead to misinterpretation of CBC data. Current Interpretive Data was last revised on 2017. Testing performed by: [address] [address] Monocyte pct 11.5 % MON[facility] Comment: Interpretive Data Percent cell count reference ranges are not reported, since discordance with absolute values may lead to misinterpretation of CBC data. Current Interpretive Data was last revised on 2017. Testing performed by: [address] [address] Eosinophil pct 3.6 % [facility] Comment: Interpretive Data Percent cell count reference ranges are not reported, since discordance with absolute values may lead to misinterpretation of CBC data. Current Interpretive Data was last revised on 2017. Testing performed by: [address] [address] Basophil pct 1.4 % MON[facility] Comment: Interpretive Data Percent cell count reference ranges are not reported, since discordance with absolute values may lead to misinterpretation of CBC data. Current Interpretive Data was last revised on 2017. Testing performed by: [address] [address] Blood 07/28/2024 5:38 AM CDT 07/28/2024 6:07 AM CDT us Sabrina North INFORMATION SPECIALIST LAB BLOOD ORDERABLES Final R esult [facility] [address] [facility] Department [place] [address] * CBC with auto differential (07/28/2024 5:38 AM CDT) WBC 4.18 3.80 - 9.90 K/cumm Comment:Testing performed by : [address] [address] Hgb 12.0 11.9 - 15.5 g/dL [facility] Comment:Testing performed by : [address] [address] Hct 37.1 35.6 - 45.5 % MONSE Comment:Testing performed by : [address] [address] Plt 207 150 - 400 K/cumm [facility] Comment:Testing performed by : [address] [address] MPV 10.0 9.1 - 12.3 fL [facility] Comment:Testing performed by : [address] [address] RBC 3.99 3.90 - 5.20 M/cumm [facility] Comment:Testing performed by : [address] [address] MCV 93.0 81.3 - 96.4 fL [facility] Comment:Testing performed by : [address], [address] MCH 30.1 27.1 - 33.3 pg [facility] Comment:Testing performed by : [address], [address] MCHC 32.3 32.3 - 35.7 g/dL MONSE Comment:Testing performed by : [address], [address] RDW CV 13.4 11.1 - 14.9 % MONSE Comment:Testing performed by : [address] [address] RDW SD 45.7 35.7 - 48.1 fL [facility] Comment:Testing performed by : [address] [address] NRBC abs 0.00 0.00 - 0.01 K/cumm [facility] Comment:Testing performed by : [address] [address] Blood 07/28/2024 5:38 AM CDT 07/28/2024 6:07 AM CDT us Sabrina North NP LAB BLOOD ORDERABLES Final R esult [facility] [address] [facility] Department [place] [address] * Phosphorus (07/28/2024 5:38 AM CDT) Pathologist [facility] Phosphorus, pl 2.8 2.3 - 4.5 mg/dL Comment:Testing performed by : [address] [address] Blood 07/28/2024 5:38 AM CDT 07/28/2024 6:06 AM CDT Sabrina North INFORMATION SPECIALIST LAB BLOOD ORDERABLES Final R esult Performing Organization Address [facility] Co de Phone Number [address] [place] [address] * Magnesium (07/28/2024 5:38 AM CDT) [facility] Magnesium 1.8 1.4 - 2.5 mg/dL Comment:Testing performed by : [address] [address] Blood 07/28/2024 5:38 AM CDT 07/28/2024 6:06 AM CDT Sabrina North INFORMATION SPECIALIST LAB BLOOD ORDERABLES Final R esult Performing Organization Address [facility] Co de Phone Number [address] [place] [address] * (ABNORMAL) Basic metabolic panel (07/28/2024 5:38 AM CDT) [facility] Sodium 141 135 - 145 mmol/L Comment:Testing performed by : [address] [address] Potassium, pl 3.7 3.3 - 4.9 mmol/L MONSE Comment:Testing performed by : [address] [address] Chloride 108 97 - 110 mmol/L MONSE Comment:Testing performed by : [address] [address] CO2 24 22 - 32 mmol/L MONSE Comment:Testing performed by : [address] [address] Anion gap 9 2 - 15 mmol/L MONSE Comment:Testing performed by : [address] [address] BUN 8 6 - 25 mg/dL MONSE Comment:Testing performed by : [address] [address] Creatinine 0.59(L) 0.60 - 1.10 mg/dL MONSE Comment:Testing performed by : [address] [address] Glucose 79 70 - 199 mg/dL MONSE [...] was last revised 2022. Testing performed by: [address] [address] Calcium 8.5 8.5 - 10.3 mg/dL MONSE Comment:Testing performed by : [address] [address] Blood 07/28/2024 5:38 AM CDT 07/28/2024 6:06 AM CDT us Sabrina North NP LAB BLOOD ORDERABLES Final R esult [facility] [address] [facility] Department [place] [address] * CT Chest WO Contrast [...] by Alma Sadler M.D. SN: Report ID: [id number] Reading Location: [place] [address] Procedure Note Alma Sadler MD - 07/27/2024 [...] by Alma Sadler M.D. SN: Report ID: [id number] Reading Location: [place] [address] us Takeysha L. Lowe INFORMATION SPECIALIST IMG CT PROCEDURES Final Resu lt * Lactate (07/27/2024 1:40 PM CDT) Lactate 0.9 0.7 - 2.0 mmol/L Comment:Testing performed by : [address] [address] Blood 07/27/2024 1:40 PM CDT 07/27/2024 1:46 PM CDT us Sabrina North INFORMATION SPECIALIST LAB BLOOD ORDERABLES Final R esult [facility] [address] [facility] Department [place] [address] * eGFR (07/27/2024 1:40 PM [...] was last reviewed 2020. Testing performed by: [address] [address] Blood 07/27/2024 1:40 PM CDT 07/27/2024 1:45 PM CDT us Takeysha L. Lowe INFORMATION SPECIALIST LAB BLOOD ORDERABLES Final R esult [facility] [address] [facility] Department [place] [address] * Differential, auto (07/27/2024 1:40 PM CDT) Neutrophil abs 4.11 1.50 - 6.50 K/cumm Comment:Testing performed by : [address] [address] Imm gran abs 0.03 0.00 - 0.10 K/cumm MONSE Comment:Testing performed by : [address] [address] Lymphocyte abs 1.28 0.80 - 3.30 K/cumm MONSE Comment:Testing performed by : [address] [address] Monocyte abs 0.40 0.20 - 0.80 K/cumm MONSE Comment:Testing performed by : [address] [address] Eosinophil abs 0.03 0.00 - 0.50 K/cumm [facility] Comment:Testing performed by : [address] [address] Basophil abs 0.04 0.00 - 0.10 K/cumm [facility] Comment:Testing performed by : [address] [address] Neutrophil pct 69.8 % [facility] Comment: Interpretive Data Percent cell count reference ranges are not reported, since discordance with absolute values may lead to misinterpretation of CBC data. Current Interpretive Data was last revised on 2017. Testing performed by: [address] [address] Imm gran pct 0.5 % MON[facility] Comment: Interpretive Data Percent cell count reference ranges are not reported, since discordance with absolute values may lead to misinterpretation of CBC data. Current Interpretive Data was last revised on 2017. Testing performed by: [address] [address] Lymphocyte pct 21.7 % [facility] Comment: Interpretive Data Percent cell count reference ranges are not reported, since discordance with absolute values may lead to misinterpretation of CBC data. Current Interpretive Data was last revised on 2017. Testing performed by: [address] [address] Monocyte pct 6.8 % [facility] Comment: Interpretive Data Percent cell count reference ranges are not reported, since discordance with absolute values may lead to misinterpretation of CBC data. Current Interpretive Data was last revised on 2017. Testing performed by: [address] [address] Eosinophil pct 0.5 % MON[facility] Comment: Interpretive Data Percent cell count reference ranges are not reported, since discordance with absolute values may lead to misinterpretation of CBC data. Current Interpretive Data was last revised on 2017. Testing performed by: [address] [address] Basophil pct 0.7 % [facility] Comment: Interpretive Data Percent cell count reference ranges are not reported, since discordance with absolute values may lead to misinterpretation of CBC data. Current Interpretive Data was last revised on 2017. Testing performed by: [address] [address] Blood 07/27/2024 1:40 PM CDT 07/27/2024 1:45 PM CDT us Sabrina North INFORMATION SPECIALIST LAB BLOOD ORDERABLES Final R esult [facility] [address] [facility] Department [place] [address] * CBC with auto differential (07/27/2024 1:40 PM CDT) WBC 5.89 3.80 - 9.90 K/cumm Comment:Testing performed by : [address] [address] Hgb 12.8 11.9 - 15.5 g/dL MON[facility] Comment:Testing performed by : [address] [address] Hct 37.9 35.6 - 45.5 % MON[facility] Comment:Testing performed by : [address] [address] Plt 224 150 - 400 K/cumm MON[facility] Comment:Testing performed by : [address] [address] MPV 10.1 9.1 - 12.3 fL MON[facility] Comment:Testing performed by : [address] [address] RBC 4.19 3.90 - 5.20 M/cumm MON[facility] Comment:Testing performed by : [address], [address] MCV 90.5 81.3 - 96.4 fL [facility] Comment:Testing performed by : [address] [address] MCH 30.5 27.1 - 33.3 pg MON[facility] Comment:Testing performed by : [address], [address] MCHC 33.8 32.3 - 35.7 g/dL MON[facility] Comment:Testing performed by : [address], [address] RDW CV 13.4 11.1 - 14.9 % MON[facility] Comment:Testing performed by : [address], [address] RDW SD 44.6 35.7 - 48.1 fL [facility] Comment:Testing performed by : [address], [address] NRBC abs 0.00 0.00 - 0.01 K/cumm [facility] Comment:Testing performed by : [address] [address] Blood 07/27/2024 1:40 PM CDT 07/27/2024 1:45 PM CDT us Sabrina North NP LAB BLOOD ORDERABLES Final R esult [facility] [address] [place] [address] [place] [address] * Erythrocyte sedimentation rate (07/27/2024 1:40 PM CDT) Erythrocyte sedimentation rate 9 1 - 30 mm/hr Comment:Testing performed by : [address] [address] Blood 07/27/2024 1:40 PM CDT 07/27/2024 1:45 PM CDT Sabrina North INFORMATION SPECIALIST LAB BLOOD ORDERABLES Final R esult JACEY[address] [address] * CRP (acute phase) (07/27/2024 1:40 PM CDT) CRP 0.9 <=10.0 mg/L Comment:Testing performed by : [address] [address] Blood 07/27/2024 1:40 PM CDT 07/27/2024 1:45 PM CDT Sabrina North INFORMATION SPECIALIST LAB BLOOD ORDERABLES Final R esult Performing Organization Address City/[facility]/ZIP Co de Phone Number [address] [address] * TSH (07/27/2024 1:40 PM CDT) Thyroid Stimulating Hormone 2.79 0.30 - 4.20 mcIUnit/mL Comment:Testing performed by : [address] [address] Blood 07/27/2024 1:40 PM CDT 07/27/2024 1:45 PM CDT Sabrina North INFORMATION SPECIALIST LAB BLOOD ORDERABLES Final R esult JACEY[address] [address] * Phosphorus (07/27/2024 1:40 PM CDT) [facility] Phosphorus, pl 3.3 2.3 - 4.5 mg/dL Comment:Testing performed by : [address] [address] Blood 07/27/2024 1:40 PM CDT 07/27/2024 1:45 PM CDT Sabrina North INFORMATION SPECIALIST LAB BLOOD ORDERABLES Final R esult Performing Organization Address [facility] Co de Phone Number [address] [address] * Magnesium (07/27/2024 1:40 PM CDT) [facility] Magnesium 1.6 1.4 - 2.5 mg/dL Comment:Testing performed by : [address] [address] Blood 07/27/2024 1:40 PM CDT 07/27/2024 1:45 PM CDT Sabrina North INFORMATION SPECIALIST LAB BLOOD ORDERABLES Final R esult Performing Organization Address City/[facility]/ZIP Co de Phone Number [address] [address] * Comprehensive metabolic panel (07/27/2024 1:40 PM CDT) [facility] Sodium 142 135 - 145 mmol/L Comment:Testing performed by : [address] [address] Potassium, pl 3.7 3.3 - 4.9 mmol/L MON[facility] Comment:Testing performed by : [address] [address] Chloride 106 97 - 110 mmol/L MON[facility] Comment:Testing performed by : [address] [address] CO2 27 22 - 32 mmol/L [facility] [facility] Comment:Testing performed by : [address] [address] Anion gap 9 2 - 15 mmol/L [facility] Comment:Testing performed by : [address] [address] BUN 13 6 - 25 mg/dL [facility] Comment:Testing performed by : [address], [place]., [address] Creatinine 0.60 0.60 - 1.10 mg/dL [facility] Comment:Testing performed by : [address] [address] Glucose 83 70 - 199 mg/dL [facility] Comment: Interpretive Data Fasting glucose >/= 126 [...] was last revised 2022. Testing performed by: [address] [address] Calcium 9.0 8.5 - 10.3 mg/dL [facility] Comment:Testing performed by : [address] [address] Bilirubin, total 0.2 0.1 - 1.2 mg/dL [facility] Comment:Testing performed by : [address] [address] Protein, pl 6.8 6.5 - 8.5 g/dL [facility] Comment:Testing performed by : [address] [address] Albumin 4.1 3.5 - 5.0 g/dL [facility] Comment:Testing performed by : [address] [address] Alk phos 65 40 - 130 Units/L [facility] Comment:Testing performed by : [address] [address] ALT 29 7 - 45 Units/L [facility] Comment:Testing performed by : [address] [address] AST 29 10 - 45 Units/L [facility] Comment:Testing performed by : [address] [address] Blood 07/27/2024 1:40 PM CDT 07/27/2024 1:45 PM CDT us Sbarina North NP LAB BLOOD ORDERABLES Final R esult [facility] [address] [facility] Department [place] [address] from Last 3 Months Insurance [employer] [place] Advance Directives For more information, please contact: [phone] * Full Code (Latest Code Status on File) Date Activated Date Inactivated Comments 07/27/2024 11:51 AM 07/30/2024 4:15 PM Care Teams Administrative Executive Relationship Specialty Start Date End Date Justa Rene MD [address] [address] PCP - General Nurse Practitioner 07/27/24
--- OUTSIDE RECORDS SUMMARY | 2024-08-20 07:36 | XMS_ITS | Encounter Summary ---
Author Organization [facility] Address [address] [place] [address] Phone Care Team Providers Care Director Of Guidance Name Role Phone Justa Rene APRN, MARYURI Primary Care Provid er Encounter Details Date Type Department Care Team (Late st Contact Info) Description 03/24/2024 Telephone [facility] [address] [phone] Marisol Salazar MD [address] [place] [phone] Social History Tobacco Use Types Packs/Day Years Used Date Smoking Tobacco: Former Cigarettes Smokeless Tobacco: Never Alcohol Use Standard Drinks/Week Comments Yes 0 (1 standard drink = 0.6 oz pur e alcohol) 12 per year Comments Unknown Sex and Gender Information Value Date Recorded Sex Assigned at Not on file Legal Sex Female 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 DENTIAL PROGRAM WORKER documented in this encounter Plan of Treatment Upcoming Encounters Date Type Department Care Team (Late st Contact Info) Description 11/02/2024 10:15 AM CDT Lab [facility] [address] [phone] Lab, [facility] 11/02/2024 10:30 AM CDT Office Visit [facility] [address] [phone] Marisol Salazar MD [address] [place] [phone] documented as of this encounter Visit Diagnoses Not on filedocumented in this encounter Care Teams Director Of Guidance Relationship Specialty Start Date End Date Justa Rene, TARE WEIGHER, MILIEU COUNSELOR [address] [place] [address] PCP - General Advanced Practice Nurse 03/17/24 documented as of this encounter
--- OUTSIDE RECORDS SUMMARY | 2024-08-20 07:36 | XMS_ITS | Clinical Summary ---
Author Organization [facility] Address [address] [place] [phone] Phone Care Team Providers Care Receiving Worker Name Role Phone Gilberto Milligan MD Primary Care Provider [phone] Allergies Active Allergy Reactions Criticality Noted Date [...] 2) 2020 INFLUENZA VACCINE (#1) 2024 Insurance [facility] BLUE ACCESS/TRUE BLUE PPO Care Teams Receiving Worker Relationship Specialty Start Date End Date Gilberto Milligan MD [address] [place] [address] [place] [phone] PCP - General Internal Medicine 07/25/18
--- OUTSIDE RECORDS SUMMARY | 2024-08-20 07:36 | XMS_ITS | Encounter Summary ---
Author Organization [facility] Address [address] [place] [address] Phone Care Team Providers Care Payment Rep Name Role Phone Justa Rene APRN, CNP Primary Care Provid er Encounter Details Date Type Department Care Team (Late st Contact Info) Description 03/22/2024 Telephone [facility] [address] [phone] Marisol Salazar MD [address] [place] [phone] Social History Tobacco Use Types Packs/Day Years Used Date Smoking Tobacco: Former Cigarettes Smokeless Tobacco: Never Alcohol Use Standard Drinks/Week Comments Yes 0 (1 standard drink = 0.6 oz pur e alcohol) 12 per year Comments Unknown Sex and Gender Information Value Date Recorded Sex Assigned at Not on file 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 E SHOW COORDINATOR documented in this encounter Plan of Treatment Upcoming Encounters Date Type Department Care Team (Late st Contact Info) Description 11/02/2024 10:15 AM CDT Lab [facility] [address] [phone] Lab, Cc [facility] 11/02/2024 10:30 AM CDT Office Visit [facility] [address] [phone] Marisol Salazar MD [address] [place] [phone] documented as of this encounter Visit Diagnoses Not on filedocumented in this encounter Care Teams Payment Rep Relationship Specialty Start Date End Date Justa Rene, MUNICIPAL COURT JUDGE, TRENCH PIPE LAYER [address] [place] [address] PCP - General Advanced Practice Nurse 03/17/24 documented as of this encounter
--- OUTSIDE RECORDS SUMMARY | 2024-08-20 07:36 | XMS_ITS | Referral Summary ---
Author Organization [facility] 2 Address [address] [place] [address] Care Team Providers Care Food Taster Name Role Phone Justa Rene MD Primary Care Provider [phone]- [phone] Encounters Date Type Department Care Team Description 07/27/2024 11:33 AM CDT - 07/30/2024 12:10 PM CDT Hospital Encounter [place] [address] Med Surg [address] [place] [id number] Salvador Ramos DO [place]ma[place], MD Coleman Laureano [...] 18 025 Discontinued( erapy completed) AFLURIA QUAD [id number], PF, 60 mcg/0.5 mL syringe ADM 0.5ML [...] daily 09/12/19 20 025 Discontinued( erapy completed) [employer] Tuberculin 1 mL 25 gauge x [...] Packs/Day Years Used Date Smoking Tobacco: Never [facility] [employer] Answer Date Recorded In the past 12 months has e electric, gas, oil, or water [employer] threatened to shut off services in your [...] often do you attend chur ch or jew services? Never 07/28/2024 Do you belong to [...] time in the past 12 m [facility], were you homeless or living in a nursing home (including now)? No 07/28/2024 Personal Safety Answer Date Recorded Have you ever been in or are you currently in a harmful physical or emotional relationship or is someone making you feel afraid or unsafe? 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 Testing performed by: [address] [address] Blood 07/30/2024 3:22 AM CDT 07/30/2024 4:05 AM CDT us Ilia Cee MD LAB BLOOD ORDERABLES nal Result [place] [id number] [facility] [place] [address] * Differential, auto (07/30/2024 3:22 AM CDT) Neutrophil abs 2.07 1.50 - 6.50 K/cumm Comment:Testing performed by : [address] [address] Imm gran abs 0.01 0.00 - 0.10 K/cumm MONSE Comment:Testing performed by : [address] [address] Lymphocyte abs 1.84 0.80 - 3.30 K/cumm MONSE Comment:Testing performed by : [address] [address] Monocyte abs 0.54 0.20 - 0.80 K/cumm MONSE Comment:Testing performed by : [address] [address] Eosinophil abs 0.20 0.00 - 0.50 K/cumm MONSE Comment:Testing performed by : [address] [address] Basophil abs 0.05 0.00 - 0.10 K/cumm MONSE Comment:Testing performed by : [address] [address] Neutrophil pct 43.9 % MONSE Comment: Interpretive Data Percent cell count reference ranges are not reported, since discordance with absolute values may lead to misinterpretation of CBC data. Current Interpretive Data was last revised on 2017. Testing performed by: [address] [address] Imm gran pct 0.2 % [facility] Comment: Interpretive Data Percent cell count reference ranges are not reported, since discordance with absolute values may lead to misinterpretation of CBC data. Current Interpretive Data was last revised on 2017. Testing performed by: [address] [address] Lymphocyte pct 39.1 % [facility] Comment: Interpretive Data Percent cell count reference ranges are not reported, since discordance with absolute values may lead to misinterpretation of CBC data. Current Interpretive Data was last revised on 2017. Testing performed by: [address] [address] Monocyte pct 11.5 % [facility] Comment: Interpretive Data Percent cell count reference ranges are not reported, since discordance with absolute values may lead to misinterpretation of CBC data. Current Interpretive Data was last revised on 2017. Testing performed by: [address] [address] Eosinophil pct 4.2 % [facility] Comment: Interpretive Data Percent cell count reference ranges are not reported, since discordance with absolute values may lead to misinterpretation of CBC data. Current Interpretive Data was last revised on 2017. Testing performed by: [address] [address] Basophil pct 1.1 % [facility] Comment: Interpretive Data Percent cell count reference ranges are not reported, since discordance with absolute values may lead to misinterpretation of CBC data. Current Interpretive Data was last revised on 2017. Testing performed by: [address] [address] Blood 07/30/2024 3:22 AM CDT 07/30/2024 4:05 AM CDT us Ilia Cee MD LAB BLOOD ORDERABLES Fi nal Result MONSE [address] [facility] Department [place] [address] * CBC with auto differential (07/30/2024 3:22 AM CDT) [facility] Signature WBC 4.71 3.80 - 9.90 K/cumm Comment:Testing performed by : [address] [address] Hgb 12.3 11.9 - 15.5 g/dL MONSE Comment:Testing performed by : [address] [address] Hct 37.0 35.6 - 45.5 % MONSE Comment:Testing performed by : [address] [address] Plt 228 150 - 400 K/cumm MONSE Comment:Testing performed by : [address] [address] MPV 10.0 9.1 - 12.3 fL MONSE Comment:Testing performed by : [address] [address] RBC 4.04 3.90 - 5.20 M/cumm MONSE Comment:Testing performed by : [address] [address] MCV 91.6 81.3 - 96.4 fL MONSE Comment:Testing performed by : [address] [address] MCH 30.4 27.1 - 33.3 pg MONSE Comment:Testing performed by : [address] [address] MCHC 33.2 32.3 - 35.7 g/dL MONSE Comment:Testing performed by : [address], [address] RDW CV 13.2 11.1 - 14.9 % MONSE Comment:Testing performed by : [address] [address] RDW SD 44.5 35.7 - 48.1 fL MONSE Comment:Testing performed by : [address] [address] NRBC abs 0.00 0.00 - 0.01 K/cumm MONSE COR[place]ER Comment:Testing performed by : [address] [address] Blood 07/30/2024 3:22 AM CDT 07/30/2024 4:05 AM CDT Ilia Cee MD LAB BLOOD ORDERABLES Fi nal Result Performing Organization Address City/[facility] Co de Phone Number [id number] [place] [address] * Magnesium (07/30/2024 3:22 AM CDT) Pathologist [facility] Magnesium 1.8 1.4 - 2.5 mg/dL Comment:Testing performed by : [address] [address] Blood 07/30/2024 3:22 AM CDT 07/30/2024 4:05 AM CDT Ilia Cee MD LAB BLOOD ORDERABLES Fi nal Result Performing Organization Address [facility] de Phone Number [address] [place] [address] * (ABNORMAL) Comprehensive metabolic panel (07/30/2024 3:22 AM CDT) Pathologist [facility] Sodium 139 135 - 145 mmol/L Comment:Testing performed by : [address] [address] Potassium, pl 3.5 3.3 - 4.9 mmol/L MONSE [place]ER Comment:Testing performed by : [address] [address] Chloride 104 97 - 110 mmol/L MONSE [place] Comment:Testing performed by : [address] [address] CO2 25 22 - 32 mmol/L MONSE [place] Comment:Testing performed by : [address] [address] Anion gap 10 2 - 15 mmol/L MONSE [place] Comment:Testing performed by : [address] [address] BUN 7 6 - 25 mg/dL MONSE Comment:Testing performed by : [address] [address] Creatinine 0.68 0.60 - 1.10 mg/dL MONSE Comment:Testing performed by : [address] [address] Glucose 80 70 - 199 mg/dL MONSE [...] was last revised 2022. Testing performed by: [address] [address] Calcium 8.8 8.5 - 10.3 mg/dL MONSE Comment:Testing performed by : [address] [address] Bilirubin, total 0.4 0.1 - 1.2 mg/dL MONSE Comment:Testing performed by : [address] [address] Protein, pl 6.2(L) 6.5 - 8.5 g/dL MONSE Comment:Testing performed by : [address] [address] Albumin 3.7 3.5 - 5.0 g/dL MONSE Comment:Testing performed by : [address] [address] Alk phos 55 40 - 130 Units/L MONSE Comment:Testing performed by : [address] [address] ALT 30 7 - 45 Units/L MONSE Comment:Testing performed by : [address] [address] AST 29 10 - 45 Units/L [facility] Comment:Testing performed by : [address] [address] Blood 07/30/2024 3:22 AM CDT 07/30/2024 4:05 AM CDT Ilia Cee MD LAB BLOOD ORDERABLES Fi nal Result Performing Organization Address [facility] Co de Phone Number [address] [place] [address] * Vancomycin level trough (07/29/2024 11:01 PM CDT) Pathologist [facility] Vancomycin trough 14.8 10.0 - 20.0 mcg/mL Comment:Testing performed by : [address] [address] Blood 07/29/2024 11:0 1 PM CDT 07/29/2024 11:08 PM CDT Ilia Cee MD LAB BLOOD ORDERABLES Fi nal Result Performing Organization Address [facility] de Phone Number [address] [address] * eGFR (07/29/2024 7:36 AM CDT) eGFR [...] was last reviewed 2020. Testing performed by: [address] [address] Blood 07/29/2024 7:36 AM CDT 07/29/2024 8:06 AM CDT us Ilia Cee MD LAB BLOOD ORDERABLES Fi nal Result MONSE [facility] Department [place] [address] * Basic metabolic panel (07/29/2024 7:36 AM CDT) Sodium 137 135 - 145 mmol/L Comment:Testing performed by : [address] [address] Potassium, pl 3.7 3.3 - 4.9 mmol/L MONSE Comment:Testing performed by : [address] [address] Chloride 104 97 - 110 mmol/L MONSE Comment:Testing performed by : [address] [address] CO2 24 22 - 32 mmol/L MONSE Comment:Testing performed by : [address] [address] Anion gap 9 2 - 15 mmol/L MONSE Comment:Testing performed by : [address] [address] BUN 6 6 - 25 mg/dL MONSE Comment:Testing performed by : [address] [address] Creatinine 0.63 0.60 - 1.10 mg/dL MONSE Comment:Testing performed by : [address] [address] Glucose 78 70 - 199 mg/dL MONSE [...] was last revised 2022. Testing performed by: [address] [address] Calcium 8.8 8.5 - 10.3 mg/dL [facility] Comment:Testing performed by : [address] [address] Blood 07/29/2024 7:36 AM CDT 07/29/2024 8:06 AM CDT us Ilia Cee MD LAB BLOOD ORDERABLES Fi nal Result Performing Organization Address [facility] Co de Phone Number [address] [employer] [place], [place] [id number] * (ABNORMAL) Vancomycin level trough (07/29/2024 12:10 AM CDT) [facility] Vancomycin trough 6.1(L) 10.0 - 20.0 mcg/mL Comment:Testing performed by : [address] [address] Blood 07/29/2024 12:1 0 AM CDT 07/29/2024 12:15 AM CDT us Sabrina North NP LAB BLOOD ORDERABLES Final R esult Performing Organization Address City/[facility] Co de Phone Number [address] [place] [address] * eGFR (07/28/2024 5:38 AM CDT) [facility] eGFR >90 >=60 mL/min/1. 73 m2 Comment: [...] was last reviewed 2020. Testing performed by: [address] [address] Blood 07/28/2024 5:38 AM CDT 07/28/2024 6:06 AM CDT us Sabrina North NP LAB BLOOD ORDERABLES Final R esult MONSE [address] [facility] Department [place] [address] * Differential, auto (07/28/2024 5:38 AM CDT) Neutrophil abs 1.53 1.50 - 6.50 K/cumm Comment:Testing performed by : [address] [address] Imm gran abs 0.01 0.00 - 0.10 K/cumm MONSE Comment:Testing performed by : [address] [address] Lymphocyte abs 1.95 0.80 - 3.30 K/cumm MONSE Comment:Testing performed by : [address] [address] Monocyte abs 0.48 0.20 - 0.80 K/cumm MONSE Comment:Testing performed by : [address] [address] Eosinophil abs 0.15 0.00 - 0.50 K/cumm MONSE Comment:Testing performed by : [address] [address] Basophil abs 0.06 0.00 - 0.10 K/cumm [facility] Comment:Testing performed by : [address] [address] Neutrophil pct 36.6 % [facility] Comment: Interpretive Data Percent cell count reference ranges are not reported, since discordance with absolute values may lead to misinterpretation of CBC data. Current Interpretive Data was last revised on 2017. Testing performed by: [address] [address] Imm gran pct 0.2 % [facility] Comment: Interpretive Data Percent cell count reference ranges are not reported, since discordance with absolute values may lead to misinterpretation of CBC data. Current Interpretive Data was last revised on 2017. Testing performed by: [address] [address] Lymphocyte pct 46.7 % [facility] Comment: Interpretive Data Percent cell count reference ranges are not reported, since discordance with absolute values may lead to misinterpretation of CBC data. Current Interpretive Data was last revised on 2017. Testing performed by: [address] [address] Monocyte pct 11.5 % [facility] Comment: Interpretive Data Percent cell count reference ranges are not reported, since discordance with absolute values may lead to misinterpretation of CBC data. Current Interpretive Data was last revised on 2017. Testing performed by: [address] [address] Eosinophil pct 3.6 % [facility] Comment: Interpretive Data Percent cell count reference ranges are not reported, since discordance with absolute values may lead to misinterpretation of CBC data. Current Interpretive Data was last revised on 2017. Testing performed by: [address] [address] Basophil pct 1.4 % [facility] Comment: Interpretive Data Percent cell count reference ranges are not reported, since discordance with absolute values may lead to misinterpretation of CBC data. Current Interpretive Data was last revised on 2017. Testing performed by: [address] [address] Blood 07/28/2024 5:38 AM CDT 07/28/2024 6:07 AM CDT us Sabrina North GAME [employer] LAB BLOOD ORDERABLES Final R esult [facility] [address] [facility] [place] [address] * CBC with auto differential (07/28/2024 5:38 AM CDT) WBC 4.18 3.80 - 9.90 K/cumm Comment:Testing performed by : [address] [address] Hgb 12.0 11.9 - 15.5 g/dL MONSE Comment:Testing performed by : [address] [address] Hct 37.1 35.6 - 45.5 % MONSE Comment:Testing performed by : [address] [address] Plt 207 150 - 400 K/cumm MONSE Comment:Testing performed by : [address] [address] MPV 10.0 9.1 - 12.3 fL MONSE Comment:Testing performed by : [address] [address] RBC 3.99 3.90 - 5.20 M/cumm MONSE Comment:Testing performed by : [address] [address] MCV 93.0 81.3 - 96.4 fL MONSE Comment:Testing performed by : [address] [address] MCH 30.1 27.1 - 33.3 pg MONSE COR[place]ER Comment:Testing performed by : [facility], [address] [place] [address]., [address] MCHC 32.3 32.3 - 35.7 g/dL MONSE [place] Comment:Testing performed by : [address] [address] RDW CV 13.4 11.1 - 14.9 % MONSE [place] Comment:Testing performed by : [address] [address] RDW SD 45.7 35.7 - 48.1 fL MONSE [place] Comment:Testing performed by : [address] [address] NRBC abs 0.00 0.00 - 0.01 K/cumm MONSE [place] Comment:Testing performed by : [address] [address] Blood 07/28/2024 5:38 AM CDT 07/28/2024 6:07 AM CDT us Sabrina North [employer] LAB BLOOD ORDERABLES Final R esult Performing Organization Address City/[facility]/ZIP Co de Phone Number [address] [place] [address] * Phosphorus (07/28/2024 5:38 AM CDT) [facility] Phosphorus, pl 2.8 2.3 - 4.5 mg/dL Comment:Testing performed by : [address] [address] Blood 07/28/2024 5:38 AM CDT 07/28/2024 6:06 AM CDT Sabrina North GAME [employer] LAB BLOOD ORDERABLES Final R esult [address] [address] * Magnesium (07/28/2024 5:38 AM CDT) [facility] Magnesium 1.8 1.4 - 2.5 mg/dL Comment:Testing performed by : [address] [address] Blood 07/28/2024 5:38 AM CDT 07/28/2024 6:06 AM CDT us Sabrina North G[employer] LAB BLOOD ORDERABLES Final R esult [facility] [address] [facility] Department [place] [address] * (ABNORMAL) Basic metabolic panel (07/28/2024 5:38 AM CDT) Pathologist [facility] Sodium 141 135 - 145 mmol/L Comment:Testing performed by : [address] [address] Potassium, pl 3.7 3.3 - 4.9 mmol/L MONSE Comment:Testing performed by : [address] [address] Chloride 108 97 - 110 mmol/L MONSE Comment:Testing performed by : [address] [address] CO2 24 22 - 32 mmol/L MONSE Comment:Testing performed by : [address] [address] Anion gap 9 2 - 15 mmol/L MONSE Comment:Testing performed by : [address] [address] BUN 8 6 - 25 mg/dL MONSE Comment:Testing performed by : [address] [address] Creatinine 0.59(L) 0.60 - 1.10 mg/dL MONSE Comment:Testing performed by : [address] [address] Glucose 79 70 - 199 mg/dL MONSE [...] was last revised 2022. Testing performed by: [facility], [address] [place] [address]., [address] Calcium 8.5 8.5 - 10.3 mg/dL MONSE [facility] Comment:Testing performed by : [facility], [address] [place] [address]., [address] Blood 07/28/2024 5:38 AM CDT 07/28/2024 6:06 AM CDT us Sabrina North NP LAB BLOOD ORDERABLES Final R esult [facility] [place] [address] [facility] [place] [address] * CT Chest WO Contrast (07/27/2024 8:35 [...] by Alma Sadler M.D. SN: Report ID: [id number] Reading Location: [id number] Procedure Note Alma Sadler MD - 07/27/2024 [...] by Alma Sadler M.D. SN: Report ID: [id number] Reading Location: [id number] Sabrina North G[employer] H[employer] IMG CT PROCEDURES Final Resu lt * Lactate (07/27/2024 1:40 PM CDT) Lactate 0.9 0.7 - 2.0 mmol/L Comment:Testing performed by : [facility], [address] [place] [address]., [address] Blood 07/27/2024 1:40 PM CDT 07/27/2024 1:46 PM CDT Sabrina North NP LAB BLOOD ORDERABLES Final R esult MON[facility] [address] [facility] Department [place] [address] * eGFR (07/27/2024 1:40 PM [...] was last reviewed 2020. Testing performed by: [address] [address] Blood 07/27/2024 1:40 PM CDT 07/27/2024 1:45 PM CDT us Sabrina North [employer] LAB BLOOD ORDERABLES Final R esult [facility] [address] [facility] Department [place] [address] * Differential, auto (07/27/2024 1:40 PM CDT) Pathologist [facility] Neutrophil abs 4.11 1.50 - 6.50 K/cumm Comment:Testing performed by : [address] [address] Imm gran abs 0.03 0.00 - 0.10 K/cumm MON[facility] [place] Comment:Testing performed by : [address] [address] Lymphocyte abs 1.28 0.80 - 3.30 K/cumm MONSE Comment:Testing performed by : [address] [address] Monocyte abs 0.40 0.20 - 0.80 K/cumm [facility] Comment:Testing performed by : [address] [address] Eosinophil abs 0.03 0.00 - 0.50 K/cumm [facility] Comment:Testing performed by : [address] [address] Basophil abs 0.04 0.00 - 0.10 K/cumm [facility] Comment:Testing performed by : [address] [address] Neutrophil pct 69.8 % [facility] Comment: Interpretive Data Percent cell count reference ranges are not reported, since discordance with absolute values may lead to misinterpretation of CBC data. Current Interpretive Data was last revised on 2017. Testing performed by: [address] [address] Imm gran pct 0.5 % [facility] Comment: Interpretive Data Percent cell count reference ranges are not reported, since discordance with absolute values may lead to misinterpretation of CBC data. Current Interpretive Data was last revised on 2017. Testing performed by: [address] [address] Lymphocyte pct 21.7 % [facility] Comment: Interpretive Data Percent cell count reference ranges are not reported, since discordance with absolute values may lead to misinterpretation of CBC data. Current Interpretive Data was last revised on 2017. Testing performed by: [address] [address] Monocyte pct 6.8 % [facility] Comment: Interpretive Data Percent cell count reference ranges are not reported, since discordance with absolute values may lead to misinterpretation of CBC data. Current Interpretive Data was last revised on 2017. Testing performed by: [address] [address] Eosinophil pct 0.5 % [facility] Comment: Interpretive Data Percent cell count reference ranges are not reported, since discordance with absolute values may lead to misinterpretation of CBC data. Current Interpretive Data was last revised on 2017. Testing performed by: [address] [address] Basophil pct 0.7 % MONSE Comment: Interpretive Data Percent cell count reference ranges are not reported, since discordance with absolute values may lead to misinterpretation of CBC data. Current Interpretive Data was last revised on 2017. Testing performed by: [address] [address] Blood 07/27/2024 1:40 PM CDT 07/27/2024 1:45 PM CDT us Sabrina North [employer] LAB BLOOD ORDERABLES Final R esult [facility] [address] [facility] Department [place] [address] * CBC with auto differential (07/27/2024 1:40 PM CDT) WBC 5.89 3.80 - 9.90 K/cumm Comment:Testing performed by : [address] [address] Hgb 12.8 11.9 - 15.5 g/dL MONSE Comment:Testing performed by : [address] [address] Hct 37.9 35.6 - 45.5 % MONSE Comment:Testing performed by : [address] [address] Plt 224 150 - 400 K/cumm MONSE Comment:Testing performed by : [address] [address] MPV 10.1 9.1 - 12.3 fL MONSE Comment:Testing performed by : [address] [address] RBC 4.19 3.90 - 5.20 M/cumm [facility] [place] Comment:Testing performed by : [address] [address] MCV 90.5 81.3 - 96.4 fL MONSE Comment:Testing performed by : [address] [address] MCH 30.5 27.1 - 33.3 pg [facility] [place] Comment:Testing performed by : [address] [address] MCHC 33.8 32.3 - 35.7 g/dL [facility] [place] Comment:Testing performed by : [address], [address] RDW CV 13.4 11.1 - 14.9 % [facility] [place] Comment:Testing performed by : [address], [address] RDW SD 44.6 35.7 - 48.1 fL [facility] Comment:Testing performed by : [address] [address] NRBC abs 0.00 0.00 - 0.01 K/cumm [facility] Comment:Testing performed by : [address], [address] Blood 07/27/2024 1:40 PM CDT 07/27/2024 1:45 PM CDT us Sabrina North [employer] LAB BLOOD ORDERABLES Final R esult Performing Organization Address [facility] Co de Phone Number [address] [place] [address] * Erythrocyte sedimentation rate (07/27/2024 1:40 PM CDT) Erythrocyte sedimentation rate 9 1 - 30 mm/hr Comment:Testing performed by : [address] [address] Blood 07/27/2024 1:40 PM CDT 07/27/2024 1:45 PM CDT Sabrina North [employer] LAB BLOOD ORDERABLES Final R esult Performing Organization Address City/[facility] Co de Phone Number JACEY[address] [place] [employer] [address] * CRP (acute phase) (07/27/2024 1:40 PM CDT) Pathologist [facility] CRP 0.9 <=10.0 mg/L Comment:Testing performed by : [address] [address] Blood 07/27/2024 1:40 PM CDT 07/27/2024 1:45 PM CDT Sabrina North [employer] LAB BLOOD ORDERABLES Final R esult JACEY[address] [place] [address] * TSH (07/27/2024 1:40 PM CDT) [facility] Thyroid Stimulating Hormone 2.79 0.30 - 4.20 mcIUnit/mL Comment:Testing performed by : [address] [address] Blood 07/27/2024 1:40 PM CDT 07/27/2024 1:45 PM CDT Sabrina North G[employer] LAB BLOOD ORDERABLES Final R esult Performing Organization Address [facility] Co de Phone Number [address] [place] [employer] [address] * Phosphorus (07/27/2024 1:40 PM CDT) Pathologist [facility] Phosphorus, pl 3.3 2.3 - 4.5 mg/dL Comment:Testing performed by : [address] [address] Blood 07/27/2024 1:40 PM CDT 07/27/2024 1:45 PM CDT Sabrina North G[employer] LAB BLOOD ORDERABLES Final R esult Performing Organization Address City/[facility]/ZIP Co de Phone Number JACEY[address] [place] [employer] [address] * Magnesium (07/27/2024 1:40 PM CDT) Pathologist [facility] [place] Magnesium 1.6 1.4 - 2.5 mg/dL Comment:Testing performed by : [address] [address] Blood 07/27/2024 1:40 PM CDT 07/27/2024 1:45 PM CDT Sabrina North GAME SHOW HOST LAB BLOOD ORDERABLES Final R esult [facility] [address] [facility] [place] [address] * Comprehensive metabolic panel (07/27/2024 1:40 PM CDT) Pathologist [facility] [place] Sodium 142 135 - 145 mmol/L Comment:Testing performed by : [address] [address] Potassium, pl 3.7 3.3 - 4.9 mmol/L MONSE Comment:Testing performed by : [address] [address] Chloride 106 97 - 110 mmol/L MONSE Comment:Testing performed by : [address] [address] CO2 27 22 - 32 mmol/L MONSE Comment:Testing performed by : [address] [address] Anion gap 9 2 - 15 mmol/L MONSE Comment:Testing performed by : [address] [address] BUN 13 6 - 25 mg/dL MONSE Comment:Testing performed by : [address] [address] Creatinine 0.60 0.60 - 1.10 mg/dL MONSE Comment:Testing performed by : [address] [address] Glucose 83 70 - 199 mg/dL MONSE [...] was last revised 2022. Testing performed by: [address] [address] Calcium 9.0 8.5 - 10.3 mg/dL MONSE Comment:Testing performed by : [address] [address] Bilirubin, total 0.2 0.1 - 1.2 mg/dL MONSE Comment:Testing performed by : [address] [address] Protein, pl 6.8 6.5 - 8.5 g/dL MONSE Comment:Testing performed by : [address] [address] Albumin 4.1 3.5 - 5.0 g/dL MONSE Comment:Testing performed by : [address] [address] Alk phos 65 40 - 130 Units/L MONSE Comment:Testing performed by : [address] [address] ALT 29 7 - 45 Units/L MONSE Comment:Testing performed by : [address] [address] AST 29 10 - 45 Units/L MONSE Comment:Testing performed by : [address] [address] Blood 07/27/2024 1:40 PM CDT 07/27/2024 1:45 PM CDT us Sabrina North NP LAB BLOOD ORDERABLES Final R esult [facility] [address] [facility] [place] [address] from Last 3 Months Insurance [facility] [place] Advance Directives For more information, please contact: [phone] * Full Code (Latest Code Status on File) Date Activated Date Inactivated Comments 07/27/2024 11:51 AM 07/30/2024 4:15 PM Care Teams Food Taster Relationship Specialty Start Date End Date Justa Rene MD [address] [place] [id number] PCP - General Nurse Practitioner 07/27/24
--- OUTSIDE RECORDS SUMMARY | 2024-08-20 07:37 | XMS_ITS | Clinical Summary ---
Author Organization [facility] Address [address] [place] [address] Phone Care Team Providers Care Rubber Press Tender Name Role Phone Justa Rene APRN, NUCLEAR CRITICALITY SAFETY ENGINEER Primary Care Provid er Allergies Active Allergy [...] 6 HOURS NEEDED 05/20/19 25 Active Sutab [id number] MG Tablet TAKE BY MOUTH DIRECTED BY [...] Description 08/09/2024 Telephone [facility] [address] [phone] Marisol Salazar MD 08/03/2024 10:30 AM CDT Office Visit [facility] [address] [address] Marisol Salazar MD Rash (Primary Dx); Adenopathy; Other fatigue; Colonic thickening; Axillary lymphadenopathy; Elevated serum immunoglobulin free light chain level 08/03/2024 Travel 05/24/2024 10:00 AM CDT Office [facility] [address] [phone] Marisol Salazar MD Axillary lymphadenopathy (Primary Dx); Elevated serum immunoglobulin free light chain level; Colonic thickening; Rash; Other fatigue 05/24/2024 Travel from Last 3 Months Immunizations Immunization Administration Dates Next Due Hepatitis B-CpG 05/28/2023 Pneumococcal conjugate PCV20 , polysaccharide [id number] conjugate, adjuvant, PF 02/20/2022 Zoster Vaccine Recombinant [...] on file 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 Gender Identity Not on file Sexual Orientation [...] CDT Lab [facility] [address] [id number] Lab, [facility] 11/02/2024 10:30 AM CDT Office Visit [facility] [address] [phone] Marisol Salazar MD [address] [place] [phone] Health Maintenance Due Date Last Done Comments [...] patient's age to complete this topic Insurance [facility] Care Teams Rubber Press Tender Relationship Specialty Start Date End Date Justa Rene, CLINICAL TRIALS DATA COORDINATOR, NUCLEAR CRITICALITY SAFETY ENGINEER [address] [place] [address] PCP - General Advanced Practice Nurse 03/17/24
--- OUTSIDE RECORDS SUMMARY | 2024-08-20 07:37 | XMS_ITS | Encounter Summary ---
Author Organization [facility] Address [facility] [place] [address] Care Team Providers Care Prize Jacker Name Role Phone Justa Rene NP Primary Care Provider [phone] Encounter Details Date Type Department Care Team (Late st Contact Info) Description 01/30/2024 UseTogether Message Enc [facility] Family Medicine - [place] [address] [facility] [address] [place] [phone] Justa Rene, KEMAL [address] [place] [address] Send medical records please Social History Tobacco [...] - 01/31/2024 3:47 PM CST Information faxed IS WHEEL OPERATOR * Justa Rene NP - 01/30/2024 11:03 PM CST Mireya, can you please fax pt's last office note from Dr. Barajas to her watch caser Mohini Cavanaugh please and any other pertinent dermatology notes. Also, I believe pt is canceling her appointment tomorrow but double check please Ofelia? IS WHEEL OPERATOR documented in this encounter Plan of Treatment Upcoming Encounters Date Type Department Care Team (Late st Contact Info) Description 08/30/2024 11:30 AM CDT Office Visit [facility], [place] [place], [place] [phone] Patric Mijares MD Three [facility]. [address] [place], [place] [phone] Lucy Paez FNP [address] [facility] [address] [place], [place] [phone] documented as of this encounter Visit Diagnoses Not on filedocumented in this encounter Additional Health Concerns Assessment Noted Time PHQ-9 Depression Total Score: 14 05/24/ 024 10:12 AM CDT documented as of this encounter Care Teams Prize Jacker Relationship Specialty Start Date End Date Justa Rene NP [address] [place] [address] PCP - General NURSE PRACTITIONER 12/25/21 documented as of this encounter
--- NOTE | 2024-08-20 07:47 | ED.GENADULT ---
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 Patient does have a chronic skin condition that she follows with the [facility] for. Patient states over the last few days she has had a worsening infection the chronic skin condition. Patient states this has happened previously and she has been admitted for vancomycin. Patient reports last time she was admitted was at [place]. Patient states she has been on Keflex since . Patient reports this has not been helping. Related Data Home Medications ?Medication ?Instructions ?Recorded ?Confirmed ?Last Taken ?Type levothyroxine 75 mcg tablet 75 mcg PO DAILY 07/11/19 08/20/24 Unknown History (Synthroid) bimekizumab-bkzx 320 mg/2 mL 320 mg subcut MONTHLY 08/20/24 08/20/24 Unknown History subcutaneous auto-injector (Bimzelx Autoinjector) levothyroxine 125 mcg tablet 125 mcg PO DAILY 08/20/24 08/20/24 08/20/24 History sertraline 100 mg tablet 100 mg PO DAILY 08/20/24 08/20/24 08/19/24 History spironolactone 100 mg tablet 100 mg PO DAILY 08/20/24 08/20/24 08/19/24 History Allergies Allergy/AdvReac Type Severity Reaction Status Date / Time acetaminophen (From [place]) Allergy Severe Itching Verified 08/20/24 10:58 hydrocodone (From [place]) Allergy Severe Itching Verified 08/20/24 10:58 Penicillins Allergy Mild Yeast Verified 08/20/24 10:58 infection polyethylene glycol 3350 Allergy Unknown anal Verified 08/20/24 10:58 (From Miralax) irritation and itches psyllium Allergy Unknown anal Verified 08/20/24 10:58 irritation and itches Review of Systems Review of Systems: All systems reviewed & are unremarkable except as noted in HPI and below PMFSH Past Medical History Medical History Thyroid disease Surgical History Surgical History History of appendectomy 1996 History of 1997, 1998 History of colonoscopy 2016 History of exploratory laparotomy 1996 Family History Family History Father Diabetes mellitus Mother Hypertension Kidney disease Social History Social History Smoking packs per day: 0.50 Smoking cigarettes per day: 10.0 Years smoked: 5 Smoking pack-years: 2.50 Smoking status: Former smoker Alcohol intake: never Substance use: current Substance use type: marijuana Other substance usage details: takes gummies at bedtime Do You Feel Safe in your Home?: Yes Lack of Transportation: No Lack of Food: Never True Current Housing: I Have Housing Concerned About Future Housing: No Difficulty Paying Gas/Electric Bills: No Difficulty Paying for Meds: No Currently Unemployed: No Education: Bachelor's Degree Difficulty w/ Childcare or Family Care: No Living arrangements: with family Occupation/Education: occupation Additional occupation/education comments: Human Resources Spiritual care concerns: No Exam Narrative: APPEARANCE: Uncomfortable. HEAD: normocephalic, atraumatic. EYES: PERRLA/EOMI, conjunctivae clear. NOSE: Normal no drainage EARS:TMS clear with good light reflex. THROAT: Pharynx clear, no exudate. NECK: Supple. No adenopathy, no masses. RESPIRATORY: Airway patent, respirations nonlabored. Clear to auscultation bilaterally, no rales, rhonchi, wheezing. CARDIOVASCULAR: Regular rate and rhythm without murmurs rubs or gallops. ABDOMINAL: Soft, nontender, nondistended, normal bowel sounds MUSCULOSKELETAL: Moves all extremities. Strength/ROM intact, No edema, No calf tenderness. NEURO: Alert. Cranial nerves II through XII intact. Good gait. Good coordination SKIN: Cellulitic appearance bilateral axilla Course Vital Signs Vital signs: Vital Signs Temperature 98.9 F 08/20/24 06:49 Pulse Rate 113 H 08/20/24 06:49 Respiratory Rate 16 08/20/24 06:49 Blood Pressure 119/77 08/20/24 06:49 Pulse Oximetry 99 08/20/24 06:49 Oxygen Delivery Room Air 08/20/24 06:49 Temperature 98.1 F 08/20/24 14:00 Pulse Rate 89 08/20/24 14:00 Respiratory Rate 16 08/20/24 14:00 Blood Pressure 113/60 08/20/24 14:00 Pulse Oximetry 99 08/20/24 14:00 Oxygen Delivery Room Air 08/20/24 10:26 Medical Decision Making MDM Narrative Medical decision making narrative: 53-year-old presents to the emergency department for evaluation for worsening cellulitis. Patient was started on Keflex and feels her symptoms are continued worsened. Patient is currently the afebrile with no leukocytosis hemoglobin of 13.3. No acute abnormalities on her CMP. Patient states that she tolerated vancomycin previously. Patient was started on IV vancomycin for concern for cellulitis that did not respond to outpatient treatment. Case was discussed with hospitalist patient was accepted for admission. Patient was comfortable with plan for admission. All questions concerns were addressed. Differential Diagnosis Differential Diagnosis: Extra mammary Paget's disease, cellulitis, erysipelas Vital Signs Vital Signs: Vital Signs Temperature 98.9 F 08/20/24 06:49 Pulse Rate 113 H 08/20/24 06:49 Respiratory Rate 16 08/20/24 06:49 Blood Pressure 119/77 08/20/24 06:49 Pulse Oximetry 99 08/20/24 06:49 Oxygen Delivery Room Air 08/20/24 06:49 Temperature 98.1 F 08/20/24 14:00 Pulse Rate 89 08/20/24 14:00 Respiratory Rate 16 08/20/24 14:00 Blood Pressure 113/60 08/20/24 14:00 Pulse Oximetry 99 08/20/24 14:00 Oxygen Delivery Room Air 08/20/24 10:26 Lab Data Lab results reviewed: Yes I reviewed the patient's lab results. 08/20/24 07:55 08/20/24 07:55 Labs: Lab Results 08/20/24 Range/Units 07:55 WBC 5.0 (4.5-10.0) K/mm3 RBC 4.42 (4.2-5.4) M/mm3 Hgb 13.3 (12.0-15.0) g/dL Hct 40.4 (37.0-47.0) % MCV 91.4 (80-100) fl MCH 30.1 (26-34) pg MCHC 32.9 (32-36) g/dl RDW 13.3 (11.5-14.5) % Plt Count 231 (150-375) k/mm3 MPV 10.0 (7.4-10.4) fl Immature Gran % (Auto) 0.2 (0-0.5) % Neut % (Auto) 45.9 (45.5-73.1) % Lymph % (Auto) 31.3 (18.3-44.2) % [place] % (Auto) 12.9 H (2.6-8.5) % Eos % (Auto) 8.5 H (0-4.4) % Baso % (Auto) 1.2 (0.2-1.2) % Lymph # (Auto) 1.55 (0.9-3.2) K/mm3 [place] # (Auto) 0.6 (0.1-0.6) K/mm3 Eos # (Auto) 0.4 H (0-0.3) K/mm3 Baso # (Auto) 0.1 (0.0-0.1) K/mm3 Abs Immat Gran (auto) 0.01 (0.00-0.031) K/mm3 Absolute Neuts (auto) 2.3 (1.3-6.7) K/mm3 Absolute Nucleated RBC 0.000 (0.0-0.012) K/mm3 Nucleated RBC % 0.0 (0.0-0.2) % Sodium 141 (137-145) mmol/L Potassium 4.2 (3.4-5.0) mmol/L Chloride 107 (98-107) mmol/L Carbon Dioxide 25 (22-30) mmol/L Anion Gap 9 (4-12) mmol/L BUN 15 (7-17) mg/dL Creatinine 0.63 L (0.7-1.0) mg/dL Estim Creat Clear Calc 73 ml/min Estimated GFR > 60 (59 - ) Glucose 87 (65-110) mg/dL Lactic Acid 1.5 (0.7-2.0) mmol/L Calcium 9.2 (8.4-10.2) mg/dL Total Bilirubin 0.3 (0.2-1.3) mg/dL AST 30 (14-36) U/L ALT 18 (6-35) U/L Alkaline Phosphatase 54 (38-126) U/L C-Reactive Protein < 0.5 (<1.0) mg/dL Total Protein 7.2 (6.3-8.2) g/dL Albumin 4.0 (3.5-5.1) g/dL Discharge Plan Discharge Clinical Impression: Cellulitis Patient Disposition: Still a Patient Condition: Stable
[2024-08-20 08:06] LABS: Hematocrit 40.4 % (37.0-47.0); Hemoglobin 13.3 g/dL (12.0-15.0); Immature Granulocyte Percent A 0.2 % (0-0.5); Lymphocytes Absolute Auto 1.55 K/mm3 (0.9-3.2); Mean Corpuscular HGB Conc 32.9 g/dl (32-36); Mean Corpuscular Hemoglobin 30.1 pg (26-34); Mean Corpuscular Volume 91.4 fl (80-100); Nucleated Red Blood Cells Absolute Auto 0.000 K/mm3 (0.0-0.012); Nucleated Red Blood Cells Perc 0.0 % (0.0-0.2); Platelet Count Result 231 k/mm3 (150-375); Red Blood Count 4.42 M/mm3 (4.2-5.4); White Blood Count 5.0 K/mm3 (4.5-10.0)
[2024-08-20] MEDS: HYDROcodone/acetaminophen (*CRX) 5-325 MG TABLET 1 TAB PO (08:06)
[2024-08-20 08:19] LABS: Alanine Aminotransferase 18 U/L (6-35); Albumin Level 4.0 g/dL (3.5-5.1); Alkaline Phosphatase 54 U/L (38-126); Anion Gap 9 mmol/L (4-12); Aspartate Amino Transferase 30 U/L (14-36); Bilirubin,Total 0.3 mg/dL (0.2-1.3); Blood Urea Nitrogen 15 mg/dL (7-17); CRP < 0.5 mg/dL (<1.0); Calcium 9.2 mg/dL (8.4-10.2); Carbon Dioxide 25 mmol/L (22-30); Chloride 107 mmol/L (98-107); Estimated CRCL calculation 73 ml/min; Estimated Glomerular Filt Rate > 60; Glucose 87 mg/dL (65-110); Potassium 4.2 mmol/L (3.4-5.0); Sodium 141 mmol/L (137-145); Total Protein 7.2 g/dL (6.3-8.2)
--- NOTE | 2024-08-20 08:28 | PC.NURSE ---
waiting for vancomycin to come from pharmacy at this time
[2024-08-20] MEDS: VANCOMYCIN 1,000 MG/NS 250 ML 1,000 MG/250 ML BAG 250 MG IVPB (08:54)
--- NOTE | 2024-08-20 09:51 | PC.NURSE ---
Patient reports itching s/p norco admin. VORB for 50mg benadryl PO placed.
[2024-08-20] MEDS: diphenhydrAMINE HCl CAP 25 MG CAPSULE 50 MG PO (09:57)
--- NOTE | 2024-08-20 10:31 | ADMGEN ---
This patient, Pauline Rodriges, was admitted to Medical Room 349-01. Patient/family oriented to hospital policies and general routines including ID bracelet, bed and alarms, visiting hours, pain management, procedures, bathroom and other care routines, personal items, smoking policy, room service/diet, and visiting hours. Information on how to activate the Rapid Response Team has been discussed. Patient/Family are encouraged to report perceived risks to care and to ask questions if they do not understand what they are told or what they should do.
--- NOTE | 2024-08-20 13:33 | P.HP_ITS ---
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 Patient does have a chronic skin condition that she follows with the [facility] for. Patient states over the last few days she has had a worsening infection the chronic skin condition. Patient states this has happened previously and she has been admitted for vancomycin. Patient reports last time she was admitted was at [place]. Patient states she has been on Keflex since . Patient reports this has not been helping. Patient nurse is present in the room patient with history of extra mammary Paget's disease. the patient has developed rash along b/l axilla, it appears erythematous, it is painful, there are no lymph nodes swollen, no drainage, there no red streak, patient deneis any fever or chills, patient is taking oral keflex for 4 days without any relief, stats last time when she had a flare up she was treated with Vancomycin and Amoxicillin, patient is accepted by [facility] but has not seen any provider at the clinic. will start patient on Aldara (imiquidmod) 5%, from tomorrow, our pharmacy does not carry it, will order the medication it is apply 3x/week for 6 to 16Weeks, patient was given hydrocodone in the ER and patient developed itch. she does not take NSAIDs or Tylenol. will monitor. [facility] Past Medical History Medical History Thyroid disease Surgical History Surgical History History of appendectomy 1996 History of 1997, 1998 History of colonoscopy 2016 History of exploratory laparotomy 1996 Family History Family History Father Diabetes mellitus Mother Hypertension Kidney disease Social History Social History Smoking packs per day: 0.50 Smoking cigarettes per day: 10.0 Years smoked: 5 Smoking pack-years: 2.50 Smoking status: Former smoker Alcohol intake: never Substance use: current Substance use type: marijuana Other substance usage details: takes gummies at bedtime Do You Feel Safe in your Home?: Yes Lack of Transportation: No Lack of Food: Never True Current Housing: I Have Housing Concerned About Future Housing: No Difficulty Paying Gas/Electric Bills: No Difficulty Paying for Meds: No Currently Unemployed: No Education: Bachelor's Degree Difficulty w/ Childcare or Family Care: No Living arrangements: with family Occupation/Education: occupation Additional occupation/education comments: Human Resources Spiritual care concerns: No Meds Home Medications and Allergies Home Medications ?Medication ?Instructions ?Recorded ?Confirmed ?Type levothyroxine 75 mcg tablet 75 mcg PO DAILY 07/11/19 08/20/24 History (Synthroid) bimekizumab-bkzx 320 mg/2 mL 320 mg subcut MONTHLY 08/20/24 08/20/24 History subcutaneous auto-injector (Bimzelx Autoinjector) levothyroxine 125 mcg tablet 125 mcg PO DAILY 08/20/24 08/20/24 History sertraline 100 mg tablet 100 mg PO DAILY 08/20/24 08/20/24 History spironolactone 100 mg tablet 100 mg PO DAILY 08/20/24 08/20/24 History Allergies Allergy/AdvReac Type Severity Reaction Status Date / Time acetaminophen (From [place]) Allergy Severe Itching Verified 08/20/24 10:58 hydrocodone (From [place]) Allergy Severe Itching Verified 08/20/24 10:58 Penicillins Allergy Mild Yeast Verified 08/20/24 10:58 infection polyethylene glycol 3350 Allergy Unknown anal Verified 08/20/24 10:58 (From Miralax) irritation and itches psyllium Allergy Unknown anal Verified 08/20/24 10:58 irritation and itches Vital Signs Vital Signs - 24 hr 08/20/24 06:49 08/20/24 06:49 08/20/24 06:50 Temperature 37.2 C Pulse Rate 113 H Respiratory Rate 16 Blood Pressure 119/77 119/77 Pulse Oximetry 99 98 99 Oxygen Delivery Room Air 08/20/24 07:00 08/20/24 07:01 08/20/24 07:15 Temperature Pulse Rate Respiratory Rate Blood Pressure 111/74 Pulse Oximetry 98 98 98 Oxygen Delivery 08/20/24 08:53 08/20/24 10:26 08/20/24 10:36 Temperature 37.0 C Pulse Rate 90 83 Respiratory Rate 14 16 Blood Pressure 121/79 141/83 H Pulse Oximetry 99 98 Oxygen Delivery Room Air Exam Narrative: Paient nurse Yin is present in the room Patient is comfortable, NAD HEENT: eyes are clear and none icteric LUNGS:CTA HEART: RR S1S2 ABD: BS+, Soft and nontender Lower extremities: no edema SKIN: nonjaundiced, B/l Axilla erythematous, no lymph nodes swelling, or te nderness, no drainage or red streak. Neuro: grossly intact. H&P: Results Labs Labs: Short CBC 08/20/24 Range/Units 07:55 WBC 5.0 (4.5-10.0) K/mm3 Hgb 13.3 (12.0-15.0) g/dL Hct 40.4 (37.0-47.0) % Plt Count 231 (150-375) k/mm3 BMP 08/20/24 07:55 Sodium 141 Potassium 4.2 Chloride 107 Carbon Dioxide 25 BUN 15 Creatinine 0.63 L Glucose 87 Calcium 9.2 Liver Function 08/20/24 Range/Units 07:55 Total Bilirubin 0.3 (0.2-1.3) mg/dL AST 30 (14-36) U/L ALT 18 (6-35) U/L Alkaline Phosphatase 54 (38-126) U/L Albumin 4.0 (3.5-5.1) g/dL Assessment and Plan Assessment and plan (1) Extra mammary Paget disease: Code(s): C44.99 - Other specified malignant neoplasm of skin, unspecified Status: Acute (2) Hypothyroid: Code(s): E03.9 - Hypothyroidism, unspecified Status: Acute Plan Patient nurse is present in the room patient with history of extra mammary Paget's disease. the patient has developed rash along b/l axilla, it appears erythematous, it is painful, there are no lymph nodes swollen, no drainage, there no red streak, patient deneis any fever or chills, patient is taking oral keflex for 4 days without any relief, stats last time when she had a flare up she was treated with Vancomycin and Amoxicillin, patient is accepted by [facility] but has not seen any provider at the clinic. will start patient on Aldara (imiquidmod) 5%, from tomorrow, our pharmacy does not carry it, will order the medication.it is apply 3x/week for 6 to 16Weeks, patient was given hydrocodone in the ER and patient developed itch. she does not take NSAIDs or Tylenol. will monitor. Quality VTE Prophylaxis VTE prophylaxis: mechanical ordered Hospitalist [facility] Advance Care Plan I have confirmed that the patient's Advanced Care Plan is present, code status is documented, or surrogate decision maker is listed in patient medical record.: Yes Medication Reconciliation The patient is not eligible for med reconciliation; the patient is in a emergent medical situation where delaying treatment would jeopardize the patients health.: Yes
[2024-08-20] MEDS: AMOXICILLIN 500 MG CAPSULE PO ×2 (13:52→21:41)
[2024-08-20] MEDS: diphenhydrAMINE HCl CAP 25 MG CAPSULE PO (17:16)
[2024-08-20] MEDS: GABAPENTIN 300 MG CAPSULE PO (21:42)
[2024-08-21] MEDS: VANCOMYCIN 1,000 MG/NS 250 ML 1,000 MG/250 ML BAG 250 MG IVPB ×2 (03:45→21:00)
[2024-08-21 06:00] VITALS: BP 140/73; PULSE 87; RESP 16; TEMP 36.7; O2SAT 100
[2024-08-21 06:13] LABS: Hematocrit 37.7 % (37.0-47.0); Hemoglobin 12.3 g/dL (12.0-15.0); Mean Corpuscular HGB Conc 32.6 g/dl (32-36); Mean Corpuscular Hemoglobin 30.4 pg (26-34); Mean Corpuscular Volume 93.1 fl (80-100); Platelet Count Result 217 k/mm3 (150-375); Red Blood Count 4.05 M/mm3 (4.2-5.4); White Blood Count 4.8 K/mm3 (4.5-10.0)
[2024-08-21] MEDS: AMOXICILLIN 500 MG CAPSULE PO ×3 (06:18→21:00)
[2024-08-21] MEDS: LEVOTHYROXINE SODIUM 125 MCG TABLET PO (06:18)
[2024-08-21] MEDS: GABAPENTIN 300 MG CAPSULE PO ×3 (06:18→21:04)
[2024-08-21 06:25] LABS: Anion Gap 5 mmol/L (4-12); Blood Urea Nitrogen 11 mg/dL (7-17); Calcium 8.8 mg/dL (8.4-10.2); Carbon Dioxide 29 mmol/L (22-30); Chloride 105 mmol/L (98-107); Estimated CRCL calculation 65 ml/min; Estimated Glomerular Filt Rate > 60; Glucose 78 mg/dL (65-110); Magnesium 1.9 mg/dL (1.6-2.3); Potassium 3.9 mmol/L (3.4-5.0); Sodium 139 mmol/L (137-145)
[2024-08-21] MEDS: SPIRONOLACTONE 50 MG TABLET 100 MG PO (09:31)
[2024-08-21] MEDS: SERTRALINE HCL 50 MG TABLET 100 MG PO (09:31)
[2024-08-21] MEDS: diphenhydrAMINE HCl CAP 25 MG CAPSULE PO ×2 (09:35→21:04)
[2024-08-21 14:00] VITALS: BP 131/81; PULSE 90; RESP 14; TEMP 37.2; O2SAT 98
--- NOTE | 2024-08-21 16:12 | P.PNIM_ITS ---
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 the patient has developed rash along b/l axilla, it appears erythematous, it is painful, there are no lymph nodes swollen, no drainage, there no red streak, patient deneis any fever or chills, patient is taking oral keflex for 4 days without any relief, stats last time when she had a flare up she was treated with Vancomycin and Amoxicillin, patient is accepted by [facility] but has not seen any provider at the clinic. on 08/20 started patient on Vancomycin and Amoxicillin, patient stats rash and pain is better today, will also start patient on Aldara (imiquidmod) 5%, from today, our pharmacy does not carry it, will order the medication.it is to apply 3x/week for 6 to 16Weeks, patient was given hydrocodone in the ER and patient developed itch. she does not take NSAIDs or Tylenol. will monitor. Subjective Date/time seen: 08/21/24 16:12 Interval history: patient with history of extra mammary Paget's disease. the patient has developed rash along b/l axilla, it appears erythematous, it is painful, there are no lymph nodes swollen, no drainage, there no red streak, patient deneis any fever or chills, patient is taking oral keflex for 4 days without any relief, stats last time when she had a flare up she was treated with Vancomycin and Amoxicillin, patient is accepted by [facility] but has not seen any provider at the clinic. on 08/20 started patient on Vancomycin and Amoxicillin, patient stats rash and pain is better today, will also start patient on Aldara (imiquidmod) 5%, from today, our pharmacy does not carry it, will order the medication.it is to apply 3x/week for 6 to 16Weeks, patient was given hydrocodone in the ER and patient developed itch. she does not take NSAIDs or Tylenol. will monitor. Exam Narrative: Paient nurse Yin is present in the room Patient is comfortable, NAD HEENT: eyes are clear and none icteric LUNGS:CTA HEART: RR S1S2 ABD: BS+, Soft and nontender Lower extremities: no edema SKIN: nonjaundiced, B/l Axilla erythematous, no lymph nodes swelling, or tenderness, no drainage or red streak. Neuro: grossly intact. Objective Data Vital Signs Vital Signs: Vital Signs - 24 hr 08/20/24 21:39 08/20/24 21:40 08/21/24 06:00 Temperature 36.6 C 36.7 C Pulse Rate 87 87 Respiratory Rate 14 16 Blood Pressure 150/82 H 140/73 Pulse Oximetry 93 100 Oxygen Delivery Room Air 08/21/24 09:39 08/21/24 14:00 Temperature 37.2 C Pulse Rate 90 Respiratory Rate 14 Blood Pressure 131/81 Pulse Oximetry 98 Oxygen Delivery Room Air Intake/Output Intake/Output: Intake & Output 08/18/24 08/19/24 08/20/24 08/21/24 23:59 23:59 23:59 23:59 Intake Total 450 740 Balance 450 740 Meds/Results Medications: Active Medications Generic Name Dose Route Start Last Admin Trade Name Freq PRN Reason Stop Dose Admin Amoxicillin 500 mg 08/20/24 14:00 08/21/24 06:18 Amoxicillin 500 Mg Capsule PO 500 mg Q8HR JUAN Administration Diphenhydramine HCl 25 mg 08/20/24 17:06 08/21/24 09:35 Diphenhydramine Hcl Cap 25 Mg Capsule PO 25 mg Q6H PRN Administration Itching Gabapentin 300 mg 08/20/24 20:40 08/21/24 06:18 Gabapentin 300 Mg Capsule PO 300 mg TID PRN Administration Pain Rated 5 or Less Vancomycin HCl 1,000 mg in 250 mls @ 250 mls/hr 08/21/24 03:00 08/21/24 04:52 Vancomycin 1,000 Mg/Ns 250 Ml IVPB Infused Q18H JUAN Infusion Levothyroxine Sodium 125 mcg 08/21/24 06:30 08/21/24 06:18 Levothyroxine Sodium 125 Mcg Tablet PO 125 mcg DAILY@0630 JUAN Administration Non-Formulary ( 1 each 08/21/24 21:00 Imiquimod 5 % TOPICAL 09/20/24 20:59 Topical Cream In MoWeFr@2100 [facility] Packet) Sertraline HCl 100 mg 08/21/24 09:00 08/21/24 09:31 Sertraline Hcl 50 Mg Tablet PO 100 mg DAILY JUAN Administration Spironolactone 100 mg 08/21/24 09:00 08/21/24 09:31 Spironolactone 50 Mg Tablet PO 100 mg DAILY JUAN Administration Labs Labs: Laboratory Results - last 24 hr 08/21/24 05:33 WBC 4.8 RBC 4.05 L Hgb 12.3 Hct 37.7 MCV 93.1 MCH 30.4 MCHC 32.6 RDW 13.2 Plt Count 217 MPV 10.2 Sodium 139 Potassium 3.9 Chloride 105 Carbon Dioxide 29 Anion Gap 5 BUN 11 Creatinine 0.71 Estim Creat Clear Calc 65 Estimated GFR > 60 Glucose 78 Calcium 8.8 Magnesium 1.9 Quality VTE Prophylaxis VTE prophylaxis: mechanical ordered
[2024-08-21] MEDS: IMIQUIMOD 5% 1 EACH TOPICAL (21:00)
[2024-08-21 21:11] VITALS: BP 124/84; PULSE 89; RESP 16; TEMP 37; O2SAT 100
[2024-08-22 04:35] VITALS: BP 119/75; PULSE 92; RESP 18; TEMP 37.2; O2SAT 99
[2024-08-22 05:40] LABS: Hematocrit 40.4 % (37.0-47.0); Hemoglobin 13.1 g/dL (12.0-15.0); Mean Corpuscular HGB Conc 32.4 g/dl (32-36); Mean Corpuscular Hemoglobin 29.9 pg (26-34); Mean Corpuscular Volume 92.2 fl (80-100); Platelet Count Result 203 k/mm3 (150-375); Red Blood Count 4.38 M/mm3 (4.2-5.4); White Blood Count 6.5 K/mm3 (4.5-10.0)
[2024-08-22 06:00] LABS: Anion Gap 6 mmol/L (4-12); Blood Urea Nitrogen 12 mg/dL (7-17); Calcium 9.4 mg/dL (8.4-10.2); Carbon Dioxide 28 mmol/L (22-30); Chloride 105 mmol/L (98-107); Estimated CRCL calculation 63 ml/min; Estimated Glomerular Filt Rate > 60; Glucose 85 mg/dL (65-110); Magnesium 1.8 mg/dL (1.6-2.3); Potassium 4.0 mmol/L (3.4-5.0); Sodium 139 mmol/L (137-145)
[2024-08-22] MEDS: AMOXICILLIN 500 MG CAPSULE PO ×3 (06:04→20:56)
[2024-08-22] MEDS: LEVOTHYROXINE SODIUM 125 MCG TABLET PO (06:05)
[2024-08-22] MEDS: GABAPENTIN 300 MG CAPSULE PO ×3 (06:06→17:19)
[2024-08-22] MEDS: diphenhydrAMINE HCl CAP 25 MG CAPSULE PO ×2 (06:06→17:19)
[2024-08-22] MEDS: SPIRONOLACTONE 50 MG TABLET 100 MG PO (10:01)
[2024-08-22] MEDS: SERTRALINE HCL 50 MG TABLET 100 MG PO (10:01)
--- NOTE | 2024-08-22 11:54 | P.PNIM_ITS ---
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 the patient has developed rash along b/l axilla, it appears erythematous, it is painful, there are no lymph nodes swollen, no drainage, there no red streak, patient deneis any fever or chills, patient is taking oral keflex for 4 days without any relief, stats last time when she had a flare up she was treated with Vancomycin and Amoxicillin, patient is accepted by [facility] but has not seen any provider at the clinic. on 08/20 started patient on Vancomycin and Amoxicillin, patient stats rash and pain is better today, also started patient on Aldara (imiquidmod) 5%, from 08/21/24, our pharmacy does not carry it, had to order the medicatio n.it is to apply 3x/week for 6 to 16Weeks, patient culture for b/l axilla are growing staph aureus and left axilla is also growing gram negative bacilli isolated, blood culture no growth so far, will monitor, patient was given hydrocodone in the ER and patient developed itch. she does not take NSAIDs or Tylenol. will monitor. Subjective Date/time seen: 08/22/24 11:54 Interval history: patient with history of extra mammary Paget's disease. the patient has developed rash along b/l axilla, it appears erythematous, it is painful, there are no lymph nodes swollen, no drainage, there no red streak, patient deneis any fever or chills, patient is taking oral keflex for 4 days without any relief, stats last time when she had a flare up she was treated with Vancomycin and Amoxicillin, patient is accepted by [facility] but has not seen any provider at the clinic. on 08/20 started patient on Vancomycin and Amoxicillin, patient stats rash and pain is better today, also started patient on Aldara (imiquidmod) 5%, from 08/21/24, our pharmacy does not carry it, had to order the medication.it is to apply 3x/week for 6 to 16Weeks, patient culture for b/l axilla are growing staph aureus and left axilla is also growing gram negative bacilli isolated, blood culture no growth so far, will monitor, patient was given hydrocodone in the ER and patient developed itch. she does not take NSAIDs or Tylenol. will monitor. Exam Narrative: [facility] nurse Yin is present in the room Patient is comfortable, NAD HEENT: eyes are clear and none icteric LUNGS:CTA HEART: RR S1S2 ABD: BS+, Soft and nontender Lower extremities: no edema SKIN: nonjaundiced, B/l Axilla erythematous, no lymph nodes swelling, or tenderness, no drainage or red streak. Neuro: grossly intact. Objective Data Vital Signs Vital Signs: Vital Signs - 24 hr 08/21/24 14:00 08/21/24 20:00 08/21/24 21:11 Temperature 37.2 C 37.0 C Pulse Rate 90 89 Respiratory Rate 14 16 Blood Pressure 131/81 124/84 Pulse Oximetry 98 100 Oxygen Delivery Room Air 08/22/24 04:35 Temperature 37.2 C Pulse Rate 92 Respiratory Rate 18 Blood Pressure 119/75 Pulse Oximetry 99 Oxygen Delivery Intake/Output Intake/Output: Intake & Output 08/19/24 08/20/24 08/21/24 08/22/24 23:59 23:59 23:59 23:59 Intake Total 450 1540 50 Balance 450 1540 50 Meds/Results Medications: Active Medications Generic Name Dose Route Start Last Admin Trade Name Freq PRN Reason Stop Dose Admin Amoxicillin 500 mg 08/20/24 14:00 08/22/24 06:04 Amoxicillin 500 Mg Capsule PO 500 mg Q8HR JUAN Administration Diphenhydramine HCl 25 mg 08/20/24 17:06 08/22/24 06:06 Diphenhydramine Hcl Cap 25 Mg Capsule PO 25 mg Q6H PRN Administration Itching Gabapentin 300 mg 08/20/24 20:40 08/22/24 10:01 Gabapentin 300 Mg Capsule PO 300 mg TID PRN Administration Pain Rated 5 or Less Vancomycin HCl 1,000 mg in 250 mls @ 250 mls/hr 08/21/24 03:00 08/21/24 22:00 Vancomycin 1,000 Mg/Ns 250 Ml IVPB Infused Q18H JUAN Infusion Levothyroxine Sodium 125 mcg 08/21/24 06:30 08/22/24 06:05 Levothyroxine Sodium 125 Mcg Tablet PO 125 mcg DAILY@0630 [facility] Administration Non-Formulary ( 1 each 08/21/24 21:00 08/21/24 21:00 Imiquimod 5 % TOPICAL 09/20/24 20:59 1 each Topical Cream In MoWeFr@2100 [facility] Administration Packet) Sertraline HCl 100 mg 08/21/24 09:00 08/22/24 10:01 Sertraline Hcl 50 Mg Tablet PO 100 mg DAILY [facility] Administration Spironolactone 100 mg 08/21/24 09:00 08/22/24 10:01 Spironolactone 50 Mg Tablet PO 100 mg DAILY [facility] Administration Labs Labs: Laboratory Results - last 24 hr 08/22/24 05:14 WBC 6.5 RBC 4.38 Hgb 13.1 Hct 40.4 MCV 92.2 MCH 29.9 MCHC 32.4 RDW 13.2 Plt Count 203 MPV 10.1 Sodium 139 Potassium 4.0 Chloride 105 Carbon Dioxide 28 Anion Gap 6 BUN 12 Creatinine 0.74 Estim Creat Clear Calc 63 Estimated GFR > 60 Glucose 85 Calcium 9.4 Magnesium 1.8 Quality VTE Prophylaxis VTE prophylaxis: mechanical ordered
[2024-08-22 14:00] VITALS: BP 128/68; PULSE 113; RESP 16; TEMP 36.3; O2SAT 99
[2024-08-22] MEDS: VANCOMYCIN 1,250 MG/NS 250 ML 1,250 MG/250 ML BAG 166.67 MG IVPB (17:13)
[2024-08-22 22:00] VITALS: BP 147/64; PULSE 93; RESP 20; TEMP 37.8; O2SAT 100
[2024-08-23] MEDS: VANCOMYCIN 1,250 MG/NS 250 ML 1,250 MG/250 ML BAG 167 MG IVPB (03:54)
[2024-08-23] MEDS: GABAPENTIN 300 MG CAPSULE PO ×2 (05:30→09:46)
[2024-08-23] MEDS: LEVOTHYROXINE SODIUM 125 MCG TABLET PO (05:30)
[2024-08-23] MEDS: AMOXICILLIN 500 MG CAPSULE PO (05:30)
[2024-08-23] MEDS: diphenhydrAMINE HCl CAP 25 MG CAPSULE PO ×2 (05:30→12:17)
[2024-08-23 05:46] LABS: Hematocrit 38.7 % (37.0-47.0); Hemoglobin 12.5 g/dL (12.0-15.0); Mean Corpuscular HGB Conc 32.3 g/dl (32-36); Mean Corpuscular Hemoglobin 29.8 pg (26-34); Mean Corpuscular Volume 92.1 fl (80-100); Platelet Count Result 172 k/mm3 (150-375); Red Blood Count 4.20 M/mm3 (4.2-5.4); White Blood Count 3.7 K/mm3 (4.5-10.0)
[2024-08-23 06:00] VITALS: BP 136/55; PULSE 82; RESP 20; TEMP 36.8; O2SAT 98
[2024-08-23 06:02] LABS: Anion Gap 7 mmol/L (4-12); Blood Urea Nitrogen 12 mg/dL (7-17); Calcium 8.5 mg/dL (8.4-10.2); Carbon Dioxide 26 mmol/L (22-30); Chloride 106 mmol/L (98-107); Estimated CRCL calculation 64 ml/min; Estimated Glomerular Filt Rate > 60; Glucose 90 mg/dL (65-110); Magnesium 1.8 mg/dL (1.6-2.3); Potassium 3.7 mmol/L (3.4-5.0); Sodium 139 mmol/L (137-145)
[2024-08-23] MEDS: SERTRALINE HCL 50 MG TABLET 100 MG PO (09:46)
[2024-08-23] MEDS: SPIRONOLACTONE 50 MG TABLET 100 MG PO (09:47)
--- NOTE | 2024-08-23 14:36 | PM.DS ---
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 the patient has developed rash along b/l axilla, it appears erythematous, it is painful, there are no lymph nodes swollen, no drainage, there no red streak, patient deneis any fever or chills, patient is taking oral keflex for 4 days without any relief, stats last time when she had a flare up she was treated with Vancomycin and Amoxicillin, patient is accepted by [facility] but has not seen any provider at the clinic. on 08/20 started patient on Vancomycin and Amoxicillin, patient stats rash and pain is better today, also started patient on Aldara (imiquidmod) 5%, from 08/21/24, our pharmacy does not carry it, had to order the medication.it is to apply 3x/week for 6 to 16Weeks, patient culture for b/l axilla are growing staph aureus and left axilla is also growing gram negative bacilli isolated, blood culture no growth so far, will monitor, patient was given hydrocodone in the ER and patient developed itch. she does not take NSAIDs or Tylenol. will monitor. DS: Summary Hospital Course Hospital Course: patient with history of extra mammary Paget's disease. the patient has developed rash along b/l axilla, it appears erythematous, it is painful, there are no lymph nodes swollen, no drainage, there no red streak, patient deneis any fever or chills, patient is taking oral keflex for 4 days without any relief, stats last time when she had a flare up she was treated with Vancomycin and Amoxicillin, patient is accepted by [facility] but has not seen any provider at the clinic. on 08/20 started patient on Vancomycin and Amoxicillin, patient stats rash and pain is better today, also started patient on Aldara (imiquidmod) 5%, from 08/21/24, our pharmacy does not carry it, had to order the medication.it is to apply 3x/week for 6 to 16Weeks, patient culture from b/l axilla are growing staph aureus and left axilla is also growing gram negative bacilli isolated, blood culture no growth so far, will monitor, patient was given hydrocodone in the ER and patient developed itch. she does not take NSAIDs or Tylenol. will monitor. Today examined the patient Nurse Tonia is present in the room, patient rash has improved significantly and her pain has improved, discussed with clinical pharmacist and recommended to switch to oral abx Augmentin and Doxycycline, patient is clinically stable, will discharge home today. patient does not wish to use Imiquidmod for possible extra mammary Paget disease. Time Spent with Patient Time attestation: Total time spent providing and/or coordinating discharge services: Exam Narrative: Patient nurse Tonia is present in the room Patient is comfortable, NAD HEENT: eyes are clear and none icteric LUNGS:CTA HEART: RR S1S2 ABD: BS+, Soft and nontender Lower extremities: no edema SKIN: nonjaundiced, B/l Axilla erythematous, no lymph nodes swelling, or tenderness, no drainage or red streak. Neuro: grossly intact. DS: Data Data Completed and Pending Labs on day of discharge: Labs from last 24 hours 08/23/24 05:34 WBC 3.7 L RBC 4.20 Hgb 12.5 Hct 38.7 MCV 92.1 MCH 29.8 MCHC 32.3 RDW 13.2 Plt Count 172 MPV 9.9 Sodium 139 Potassium 3.7 Chloride 106 Carbon Dioxide 26 Anion Gap 7 BUN 12 Creatinine 0.73 Estim Creat Clear Calc 64 Estimated GFR > 60 Glucose 90 Calcium 8.5 Magnesium 1.8 Preliminary micro results at discharge 08/20/24 08:01 Anaerobic Culture - Preliminary Axilla Left Aerobic Culture - Preliminary Pantoea species Methicillin Resis Staph Aureus 08/20/24 08:01 Anaerobic Culture - Preliminary Axilla Right 08/20/24 07:55 Blood Culture - Preliminary Blood 08/20/24 08:01 Blood Culture - Preliminary Blood Discharge Plan Discharge Attending physician on discharge: Shantell Sloan Discharging Clinician: Shantell Sloan Patient Disposition: Home Activity: as tolerated Diet: heart healthy Discharge Instructions: patient to follow up with her primary care provider as soon as possible, patient is instructed if any symptoms worsen to go to nearest ER. Patient Instructions: Antibiotic Form, MRSA (Methicillin-Resistant Staphylococcus Aureus) (DC) Patient Language: Sami Stand Alone Forms: General Discharge Information Follow-up/Referrals: Edgard,Justa Perez, ANP [Primary Care Provider] - Discharge Medications: New amoxicillin-pot clavulanate [Augmentin] 500-125 mg tablet 1 tablet PO Q8H Qty: 21 0RF doxycycline hyclate 100 mg tablet 100 mg PO DAILY Qty: 14 0RF gabapentin [Neurontin] 300 mg Capsule 300 mg PO TID PRN (Reason: Pain Rated 5 Or Less) Qty: 90 0RF Continued levothyroxine [Synthroid] 75 mcg tablet 75 mcg PO DAILY levothyroxine 125 mcg tablet 125 mcg PO DAILY sertraline 100 mg tablet 100 mg PO DAILY spironolactone 100 mg tablet 100 mg PO DAILY Bimzelx Autoinjector 320 mg/2 mL auto-injector 320 mg SUBCUT MONTHLY Patient Comments: pt states she took this last during the last week of June Date of admission: 08/22/24 09:57 Primary Care Provider: EdgardJusta Admitting Provider: Shantell Sloan Attending physician on admission: Shantell Sloan Condition: Stable
--- NOTE | 2024-08-23 15:21 | PC.NURSE ---
Patient educated on medication for discharge patient reminded to complete course of medication as prescribed. Talked to patient and family members explaining diagnosis and side effects of medication. Dr. Sloan had seen patient earlier and discussed if she was comfortable with discharging patient agreed.
== END 2024-08-23 15:31 | disposition home or self-care (01) | DRG 607 ==
LOC: ANHED 08:04 → ANH3MED 09:28
PROVIDERS: Admitting Provider Family Medicine; Emergency Provider Emergency Medicine; PCP Nurse Practitioner; Visit Provider Family Medicine
DX: C44.599 Other specified malignant neoplasm of skin of other part of trunk (principal); B95.62 Methicillin resistant Staphylococcus aureus infection as the cause of diseases classified elsewhere; E03.9 Hypothyroidism, unspecified; Z90.49 Acquired absence of other specified parts of digestive tract; Z87.891 Personal history of nicotine dependence
CPT/HCPCS: 36415; 80048; 80053; 80202; 83605; 83735; 85025; 85027; 86140; 87040; 87070; 87075; 87181; 87186; 87205; 96365; 96366; 99285; A9270; G0378; J3373